=== PATIENT | female | born 2005 | race Caucasian/White ===

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

== ENCOUNTER 2024-10-15 15:08 | Emergency (ER) | payer MEDICAID, SELFPAY ==
[2024-10-15] VITALS (20 sets, daily range): BP systolic 93–107; BP diastolic 48–72; PULSE 88–119; RESP 16–18; TEMP 36.6–36.8; O2SAT 98–100
--- NOTE | ~2024-10-15 | US_ITS ---
EXAMINATION: US renal BI DATE: 10/15/2024 22:17 INDICATION: Right flank pain TECHNIQUE: Multiple ultrasound grayscale images of the kidneys were obtained. COMPARISON: None. FINDINGS: The right kidney measures 12.0 x 4.6 x 5.5 cm. The left kidney measures 11.2 x 5.6 x 5.7 cm. The kidn eys demonstrate normal echogenicity. There is no hydronephrosis in either kidney. No stones identif ied. There is mass effect upon the otherwise normal bladder resulting from the incompletely visualize d gravid uterus which is not diagnostically evaluated. IMPRESSION: 1. Normal kidneys without hydronephrosis. Reviewed, dictated and finalized at location A.
--- OUTSIDE RECORDS SUMMARY | 2024-10-15 15:10 | XMS_ITS | Data Portability ---
Author Organization [facility] [place] Address [address] [place] [address] [place] [address] Assessment No assessment recorded. Plan of Treatment Reminders Order Date Submit Date Provider Last Modified By Organization Details Last Modified Time Details Appointments OB ROUTINE 2024 10:45A Radha RAMAN MD Not available Not available Not available Lab drug screen, urine 2024 025 [email or web address] [place], [address], [place], [address], 09/30/2024 10:55:28 Referral None recorded. Procedures None recorded. Surgeries None recorded. Imaging US, obstetric , nuchal transluce ncy 2024 025 [email or web address] [place], [address], [place], [address], 09/30/2024 13:24:22 US, obstetric , 1st trimester 2024 025 [email or web address] [place], [address], [place], [address], 09/05/2024 17:05:03 Medication Orders None recorded. Patient TargetsNo targets recorded. Patient InstructionsNo instructions recorded. Reason for Referral None Reported. Results Created Date Observation Date Name Description Value Unit Range Abnormal Flag Note LastModifiedBy Organization Detail LastModifiedTime 10/07/19 25 10/06/2024 [UNIT Y] ANEUP LOIDY NIPT fraction 8.1% normal Not Available Liana wynn [address], [place], [address], 10/06/2024 23:31:19 10/07/19 25 10/06/2024 [UNIT Y] ANEUP LOIDY NIPT 22Q11.2 microdeletio n LOW RISK <1 in 10,000 normal Not Available [facility] [address] [facility], [place], [address], 10/06/2024 23:31:19 10/07/19 25 10/06/2024 [UNIT Y] ANEUP LOIDY NIPT sex chromosome aneuploidy NOT DETECT ED normal Not Available [facility] [address] [facility], [place], [address], 10/06/2024 23:31:19 10/07/19 25 10/06/2024 [UNIT Y] ANEUP LOIDY NIPT monosomy X LOW RISK <1 in 10,000 normal Not Available [facility] [address] [facility], [place], [address], 10/06/2024 23:31:19 10/07/19 25 10/06/2024 [UNIT Y] ANEUP LOIDY NIPT trisomy 13 LOW RISK <1 in 10,000 normal Not Available [facility] [address] [facility], [place], [address], 10/06/2024 23:31:19 10/07/19 25 10/06/2024 [UNIT Y] ANEUP LOIDY NIPT trisomy 18 LOW RISK <1 in 10,000 normal Not Available [facility] [address] [facility], [place], [address], 10/06/2024 23:31:19 10/07/19 25 10/06/2024 [UNIT Y] ANEUP LOIDY NIPT trisomy 21 LOW RISK <1 in 10,000 normal Not Available [facility] [address] [facility], [place], [address], 10/06/2024 23:31:19 10/07/19 25 10/06/2024 [UNIT Y] ANEUP LOIDY NIPT sex FEMALE normal Not Available [facility] [address] [place] [address], [place], [address], 10/06/2024 23:31:19 10/07/19 25 10/06/2024 [UNIT Y] ANEUP LOIDY NIPT gestation SINGLE TON normal Not Available [facility] [address] [address], [place], [address], 10/06/2024 23:31:19 10/07/19 25 10/06/2024 [UNIT Y] ANEUP LOIDY NIPT for detailed report, see pdf See PDF normal Not Available [facility] [address] [place] [address], [place], [address], 10/06/2024 23:31:19 10/13/19 25 10/12/2024 [UNIT Y] JENIFER Parra sickle cell disease/beta -thalassemia /hemoglobino pathies carrier screen NEGATI VE normal Not Available [facility] [address] [place] [address], [place], [address], 10/12/2024 10:46:31 10/13/19 25 10/12/2024 [UNIT Y] JENIFER Parra alpha-thalas semia carrier screen NEGATI VE normal Not Available [facility] [address] [place] [address], [place], [address], 10/12/2024 10:46:31 10/13/19 25 10/12/2024 [UNIT Y] JENIFER Parra cystic fibrosis carrier screen NEGATI VE normal Not Available [facility] [address] [place] [address], [place], [address], 10/12/2024 10:46:31 10/13/19 25 10/12/2024 [UNIT Y] JENIFER Parra spinal muscular atrophy carrier screen NEGATI VE 2 SMN1 copies , SNP not presen t normal Not Available [facility] [address], [place], [address], 10/12/2024 10:46:31 10/13/19 25 10/12/2024 [UNIT Y] JENIFER DIAZ Fidel for detailed report, see pdf See PDF normal Not Available [facility] [address], [place], [address], 10/12/2024 10:46:31 09/03/19 25 09/02/2024 CT/GC AND TRICH OMONA S VAGIN KYLAH (RRNA ), URINE chlamydia trachomatis, PCR Negati ve negati ve Not Available [facility] (Lab) [address], [place], [address], 09/03/2024 13:04:24 09/03/19 25 09/02/2024 CT/GC AND TRICH OMONA S VAGIN KYLAH (RRNA ), URINE neisseria gonorrhoeae, PCR Negati ve negati ve Not Available [facility] (Lab) [address], [place], [address], 09/03/2024 13:04:24 09/03/19 25 09/02/2024 CT/GC AND TRICH OMONA S VAGIN KYLAH (RRNA ), URINE trichomonas vaginalis ribosomal RNA (rrna) Negati ve negati ve Not Available [facility] (Lab) [address] [facility], [place], [address], 09/03/2024 13:04:24 10/01/19 25 09/30/2024 CBC W/DIF F WBC 5.6 10'3/ uL 3.5-10 .5 Not Available [facility] (Lab) [address], [place], [address], 10/01/2024 11:38:09 10/01/19 25 09/30/2024 CBC W/DIF F RBC 3.95 10'6/ uL (based on docume nted legal sex) 3.80-5 .20 Not Available [facility] (Lab) [address], [place], [address], 10/01/2024 11:38:09 10/01/19 25 09/30/2024 CBC W/DIF F HGB 12.5 g/dL (based on docume nted legal sex) 11.6-1 5.4 Not Available [facility] (Lab) [address], [place], [address], 10/01/2024 11:38:09 10/01/19 25 09/30/2024 CBC W/DIF F HCT 37.1 % (based on docume nted legal sex) 34.0-4 5.0 Not Available [facility] (Lab) [address], [place], [address], 10/01/2024 11:38:10/01/1909/30/2024 CBC W/DIF F MCV 93.9 fL 80.0-9 9.0 Not Available [facility] (Lab) [address], [place], [address], 10/01/2024 11:38:10/01/19 25 09/30/2024 CBC W/DIF F MCH 31.6 pg 27.0-3 4.0 Not Available [facility] (Lab) [address], [place], [address], 10/01/2024 11:38:10/01/19 25 09/30/2024 CBC W/DIF F MCHC 33.7 g/dL 32.0-3 5.5 Not Available [facility] (Lab) [address], [place], [address], 10/01/2024 11:38:10/01/1909/30/2024 CBC W/DIF F RDW 12.8 % 11.0-1 5.0 Not Available [facility] (Lab) [address], [place], [address], 10/01/2024 11:38:10/01/1909/30/2024 CBC W/DIF F plt 198 10'3/ uL 150-40 0 Not Available [facility] (Lab) [address], [place], [address], 10/01/2024 11:38:09 10/01/19 25 09/30/2024 CBC W/DIF F MPV 10.8 fL 8.8-12 .1 Not Available [facility] (Lab) [address], [place], [address], 10/01/2024 11:38:09 10/01/19 25 09/30/2024 CBC W/DIF F NRBC's 0.0 % 0.0 Not Available [facility] (Lab) [address], [place], [address], 10/01/2024 11:38:09 10/01/19 25 09/30/2024 CBC W/DIF F absolute NRBCs 0.0 10'3/ uL no refere nce range establ ished Not Available [facility] (Lab) [address], [place], [address], 10/01/2024 11:38:09 10/01/19 25 09/30/2024 CBC W/DIF F neutrophils 73.5 % 34.0-7 3.0 high Not Available [facility] (Lab) [address], [place], [address], 10/01/2024 11:38:09 10/01/19 25 09/30/2024 CBC W/DIF F lymphocytes 18.1 % 15.0-5 0.0 Not Available [facility] (Lab) [address], [place], [address], 10/01/2024 11:38:09 10/01/19 25 09/30/2024 CBC W/DIF F monocytes 6.4 % 1.0-15 .0 Not Available [facility] (Lab) [address], [place], [address], 10/01/2024 11:38:09 10/01/19 25 09/30/2024 CBC W/DIF F eosinophils 1.2 % 0.0-8. 0 Not Available [facility] (Lab) [address], [place], [address], 10/01/2024 11:38:09 10/01/19 25 09/30/2024 CBC W/DIF F basophils 0.4 % 0.0-2. 0 Not Available [facility] (Lab) [address] [facility], [place], [address], 10/01/2024 11:38:09 10/01/19 25 09/30/2024 CBC W/DIF F immature granulocytes 0.4 % no define d refere nce range Immat ure Granu locyt es (IG) repre sents autom ated enume ratio n of Metam yeloc ytes, Myelo cytes and Promy elocy bud when IG is < 5%. Blast s are not inclu ded in IG and repor manisha separ ately if prese nt. Not Available [facility] (Lab) [address] [facility], [place], [address], 10/01/2024 11:38:09 10/01/19 25 09/30/2024 CBC W/DIF F absolute neutrophils 4.1 10'3/ uL 1.5-8. 0 Not Available [facility] (Lab) [address] [facility], [place], [address], 10/01/2024 11:38:09 10/01/19 25 09/30/2024 CBC W/DIF F absolute lymphocytes 1.0 10'3/ uL 1.0-4. 0 Not Available [facility] (Lab) [address] [facility], [place], [address], 10/01/2024 11:38:09 10/01/19 25 09/30/2024 CBC W/DIF F absolute monocytes 0.4 10'3/ uL 0.2-1. 0 Not Available [facility] (Lab) [address] [facility], [place], [address], 10/01/2024 11:38:09 10/01/19 25 09/30/2024 CBC W/DIF F absolute eosinophils 0.1 10'3/ uL 0.0-0. 6 Not Available [facility] (Lab) [address] [facility], [place], [address], 10/01/2024 11:38:09 10/01/1909/30/2024 CBC W/DIF F absolute basophils 0.0 10'3/ uL 0.0-0. 3 Not Available [facility] (Lab) [address] [facility], [place], [address], 10/01/2024 11:38:09 10/01/19 25 09/30/2024 CBC W/DIF F absolute immature granulocytes 0.0 10'3/ uL 0.00-0 .10 Refer ence range s for nonbi nary/ inter sex or unspe cifie d gende r patie nts have not been estab lishe d. Pleas e [facility] for range s estab lishe d for cisge nder patie nts and evalu ate in the clini jasmeet marivel xt of the indiv idual patie nt: https ://lisa and book. nm.or g/gen derx Not Available [facility] (Lab) [address] [facility], [place], [address], 10/01/2024 11:38:09 10/01/1909/30/2024 HEPAT ITIS B SURFA CE ANTIG EN hepatitis B surface antigen Non-re active non-re active This assay was perfo rmed using [employer] ratio n reage nts and test kits. Value s obtai tacho with other assay metho ds or kits canno t be used inter cronin eably . Not Available [facility] (Lab) [address] [facility], [place], [address], 10/01/2024 11:38:10 10/01/1909/30/2024 HIV 1/2 ANTIG EN/AN TIBOD Y, REFLE X CONFI RMATI ON HIV antigen/anti body Nonrea ctive nonrea ctive HIV-1 antig en and HIV-1 /HIV- 2 antib odies were not detec manisha. No labor atory evide nce of HIV infec tion. Not Available [facility] (Lab) [address] [facility], [place], [address], 10/01/2024 11:38:10 10/01/19 25 09/30/2024 HEPAT ITIS C ANTIB ALISHA SCREE N, REFLE X TO CONFI RMATI ON hepatitis C antibody Non-re active non-re active Antib odies to HCV Not Detec manisha, does not exclu de the possi bilit y of expos ure to HCV. Not Available [facility] (Lab) [address], [place], [address], 10/01/2024 11:38:11 10/01/19 25 09/30/2024 RUBEL LA IGG ANTIB ALISHA, QUANT rubella antibodies, IgG Reacti ve reacti ve Not Available [facility] (Lab) [address] [facility], [place], [address], 10/01/2024 11:38:11 10/01/19 25 09/30/2024 RUBEL LA IGG ANTIB ALISHA, QUANT rubella antibodies, IgG quant 12.5 IU/mL >=10 Non-r eacti ve (Non- Immun e) <10 IU/mL React adina (Immu ne) > or = 10 IU/mL Not Available [facility] (Lab) [address], [place], [address], 10/01/2024 11:38:11 10/01/19 25 09/30/2024 TYPE/ RH/SC REEN ABO/Rh type A POS Not Available [facility] (Lab) [address], [place], [address], 10/01/2024 11:38:12 10/01/19 25 09/30/2024 TYPE/ RH/SC REEN antibody screen NEG Not Available [facility] (Lab) [address], [place], [address], 10/01/2024 11:38:12 07/11/12 2409/30/2024 TYPE/ RH/SC REEN exp date 2024 23:59 Not Available [facility] (Lab) [address] [facility], [place], [address], 10/01/2024 11:38:12 10/01/19 25 09/30/2024 HEMOG LOBIN A1C hemoglobin A1C 4.9 % 4.0-5. 6 The Ameri can Diabe bud Assoc iatio n recom mends that a prima ry goal of thera py shoul d be a HBA1C of < 7% and that physi cians shoul d reeva luate the treat ment regim en in patie nts with HBA1C value s consi stent ly > 8%. <5.7% Swati l 5.7 - 6.4% Incre ased risk for diabe bud >=6.5 % Diagn ostic of diabe bud <7.0% Goal of thera py >8.0% Actio n sugge sted Not Available [facility] (Lab) [address] [place], [address], 10/01/2024 11:38:13 10/01/19 25 09/30/2024 RPR SCREE N, REFLE X TITER /CONF IRMAT ION RPR qualitative Nonrea ctive nonrea ctive Not Available [facility] (Lab) [address], [place], [address], 10/01/2024 11:38:13 10/01/1909/30/2024 CULTU RE: URINE result report SEE RESULT S BELOW Test: Cultu re: Urine Speci men Sourc e: Urine Voide d Speci men Type: Urine Speci men Date: 025 1011 Resul t Date: 2024 0559 Resul t Statu s: Final resul t Abnor mal: No Resul ting Lab: [facility] [address] [facility] [address] Tel: CULTU RE ----- ----- ----- --- No growt h in 1 day (dete ction level of 10,00 0 colon ies / ml.) Not Available [facility] (Lab) [address], [place], [address], 10/02/2024 07:03:32 10/01/19 25 09/30/2024 drug scree n, urine Amphetamines : negati ve Not Available [place] [address], [place], [address], 09/30/2024 10:52:38 10/01/19 25 09/30/2024 drug scree n, urine Cannabinoids : positi ve Not Available [place] [address], [place], [address], 09/30/2024 10:52:38 10/01/19 25 09/30/2024 drug scree n, urine Cocaine: negati ve Not Available [place] [address], [place], [address], 09/30/2024 10:52:38 10/01/19 25 09/30/2024 drug scree n, urine Opiates: negati ve Not Available [place] [address], [place], [address], 09/30/2024 10:52:38 10/01/19 25 09/30/2024 drug scree n, urine Phenocyclidi ne: negati ve Not Available [place] [address], [place], [address], 09/30/2024 10:52:38 10/01/19 25 09/30/2024 drug scree n, urine Barbiturates : negati ve Not Available [place] [address], [place], [address], 09/30/2024 10:52:38 10/01/19 25 09/30/2024 drug scree n, urine Benzodiazepi carla: negati ve Not Available [place] [address], [place], [address], 09/30/2024 10:52:38 10/01/19 25 09/30/2024 drug scree n, urine Ethanol: negati ve Not Available [place] [address], [place], [address], 09/30/2024 10:52:38 10/01/19 25 09/30/2024 drug scree n, urine Hallucinogen s: negati ve Not Available [place] [address], [place], [address], 09/30/2024 10:52:38 10/01/19 25 09/30/2024 drug scree n, urine Inhalants: negati ve Not Available [place] [address], [place], [address], 09/30/2024 10:52:38 10/01/19 25 09/30/2024 drug scree n, urine Anabolic Steroids: negati ve Not Available [place] [address], [place], [address], 09/30/2024 10:52:38 09/03/19 25 09/02/2024 US, obste tric, 1st trime ster No observ ation record ed. [facility] [address], [place], [address], 09/02/2024 17:09:17 09/04/19 25 09/02/2024 US, obste tric, 1st trime ster No observ ation record ed. [email or web address] [address] [facility], [place], [address], 09/03/2024 14:01:43 10/01/19 25 09/30/2024 US, obste tric, nucha l trans lucen cy No observ ation record ed. [email or web address] [place] [address], [place], [address], 09/30/2024 13:22:32 10/01/19 25 09/30/2024 US, obste tric, nucha l trans lucen cy No observ ation record ed. [email or web address] [address], [place], [address], 10/03/2024 17:35:49 Result Notes None recorded. Problems Name Problem SNOMED Code Status Onset Date Resolution Date Notes Provider Name and Address Organization Details Recorded Time [id number] Active 025 Nataliaamandeep Villanueva [facility] 10:12:39 Problem Notes None recorded. Medical Equipment None Reported. Allergies No known drug allergies Medications Name Sig Start Date Stop Date Status Note LastModified by Organization Details LastModified Time Vitamin active Not Available Not Available Not Available Vitals Date Recorded Body weight Body mass index (BMI) Body mass index (BMI) [Percentile] Per age and sex Body height Systolic And Diastolic Provider Name and Address Organization Details Last Updated DateTime 09/02/2024 78609.15 g 22.1 kg/m2 53 % 167.64 cm 119/78 mm[Hg] MANINDER Rogel [facility] 17:27:00 Date Recorded Body height Body mass index (BMI) [Percentile] Per age and sex Body mass index (BMI) Body weight Systolic And Diastolic Provider Name and Address Organization Details Last Updated DateTime 09/30/2024 167.64 cm 55 % 22.3 kg/m2 16618.7 5 g 127/80 mm[Hg] Natalia Villanueva [facility] 10:12:08 Social History Question Answer Notes LastModified by Organizat ion Details LastModified Time Tobacco Smoking Status Never Smoker MANINDER Rogel [facility] 09/02/2024 17:29:38 Do You Have An Advance Directive? No [email or web address] Information n ot available 09/02/2024 If You Are , What Was Your Level Of Alcohol Consumption Prior To ? None [email or web address] Information not available 09/02/2024 Are You Blind Or Do You Have Difficulty Seeing? No [email or web address] Information n ot available 09/02/2024 What Is Your Level Of Caffeine Consumption? None [email or web address] Information not available 09/02/2024 In The 14 Days Before Symptom Onset, Have You Had Close Contact With A Laboratory-confirm ed COVID-19 While That Case Was Ill? No [email or web address] Information n ot available 09/02/2024 In The 14 Days Before Symptom Onset, Have You Had Close Contact With A Person Who Is Under Investigation For COVID-19 While That Person Was Ill? No [email or web address] Information not available 09/02/2024 Have You Been To An Area Known To Be High Risk For COVID-19? No [email or web address] Information not available 09/02/2024 Are You Deaf Or Do You Have Serious Difficulty Hearing? No [email or web address] Information not available 09/02/2024 What Type Of Diet Are You Following? REGULAR [email or web address] Information n ot available 09/02/2024 What Is The Highest Grade Or Level Of School You Have Completed Or The Highest Degree You Have Received? [id number] [email or web address] Information not available 09/02/2024 Are There Any Guns Present In Your Home? No [email or web address] Information not available 09/02/2024 Do You Use Your Seat Belt Or Car Seat Routinely? Yes Information not available 09/02/2024 Are You Sexually Active? Yes [email or web address] Information not available 09/02/2024 Do You Have Smoke And Carbon Monoxide Detectors In Your Home? Yes [email or web address] Information not available 09/02/2024 Do You Use Sunscreen Routinely? Yes [email or web address] Information not available 09/02/2024 Has Tobacco Cessation Counseling Been Provided? No Information not available 09/02/2024 Do You Have Difficulty Walking Or Climbing Stairs? No [email or web address] Information not available 09/02/2024 How Many Years Have You Used E-cigarettes Or Vape? 3 [email or web address] Information not available 09/02/2024 Sex: Unknown Functional Status Question Answer Note LastModified by Organizat ion Details LastModified Time Do you use any illicit or recreational drugs? No [email or web address] Information not available 09/02/2024 Do you or have you ever used any other forms of tobacco or nicotine? Yes [email or web address] Information not available 09/02/2024 What is your level of alcohol consumption? None [email or web address] Information not available 09/02/2024 Do you or have you ever used smokeless tobacco? Never used [email or web address] tobacco Information not available 09/02/2024 Are you currently employed? No [email or web address] Information not available 09/02/2024 Are you able to walk? YESWOREST [email or web address] Information not available 09/02/2024 Are you able to care for yourself? Yes [email or web address] Information not available 09/02/2024 Do you have difficulty dressing or bathing? Yes [email or web address] Information not available 09/02/2024 Do you or have you ever used e-cigarettes or vape? Current user of electronic cigarettes [email or web address] Information not available 09/02/2024 What is your exercise level? None [email or web address] Information not available 09/02/2024 Mental Status Question Answer Note LastModified by Organization D etails LastModified Time Do you feel stressed (tense, restless, nervous, or anxious, or unable to sleep at night)? [id number] Information not available 09/02/2024 Family History Relationship Description Onset Age of this Age Resolved Age Notes LastModified by Organization Details LastModified Time Mother Malignant tumor of breast [email or web address] Not available 2024 17:29:18 Maternal Grandmother Malignant neoplasm of lung [email or web address] Not available 2024 17:29:27 Medical History Condition Response Allergies (Food, seasonal, environmental ) N Other N Drug/Latex Allergies/Reactions N Breast Cancer N Blood Transfusion N Lung Disease N Dermatologic Disorders N Defects or Inherited Disease N Breast Problem N Gestational Diabetes N Hematologic disorders N Anesthesia Complications N History of STI N Deep Vein Thrombosis N Polycystic ovary syndrome N Anxiety Disorder N Autoimmune disease N Arthritis N Polyps N Infertility N History of abnormal pap N Acid Reflux (GERD) N Cancer N Varicosities N Stroke N Neurologic/Epilepsy N Endometriosis N High Cholesterol N Headaches N Fibromyalgia N Kidney Disease N Heart Problems N Thyroid Problems N Kidney or Bladder Problems N GI Problems N Eating Disorder N Anemia N Art (IVF or FET) N Psychiatric Illness N Ovarian Cancer N Diabetes N Pulmonary (TB, Asthma) N Hepatitis/Liver Disease N No Past Medical History N Eczema N Urinary Tract Infection N Abuse/Domestic Violence N Asthma N Trauma/Violence N Depression/ depression N Heart Disease N Pre-Eclampsia N Hypertension N Osteoporosis N Thrombophilias N Gynecological History Statement/Question Response Date of Last Mammogram Flow Moderate Date of LMP 07/01/2024 On BCP's at Conception? N STIs/STDs Y HPV Vaccine N Colposcopy Duration of Flow (days) 5 Current Control Method Date of Last Colonoscopy Frequency of Cycle (Q days) 28 Sexually Active? Y Menses Monthly N Date of DEXA bone scan Age of first menstrual cycle 12 Date of Last Pap Smear Sexual Problems? N Desired Control Method None LMP Definite Obstetrics History GPAL:G 2 P 0 0 1 0 Type Value Induced 1 Living 0 Total 2 Past Encounters Encounter ID Performer Location Encounter Start Date Encounter Closed Date Diagnosis/Indication Diagnosis SNOMED-CT Code Diagnosis ICD10 Code Diagnosis Note [id number] BONITA RAMAN MD [place] [address],[place] [address] 09/02/2024 16:43:56 09/02/2024 17:07:32 Uterine size for dates discrepancy 768643992 O26.841 Z3A.01 [id number] BONITA RAMAN MD [place] [address],[place] [address] 09/02/2024 16:45:49 09/03/2024 09:16:33 test positive 361640022 Z32.01 1. Exam today within normal limits.2. Ultrasound today confirms GA and viability. EDC . GC/Clamydi a testing done: will f/u as indicated. 4. ACOG guidelines and plan of care for reviewed with patient. All questions answered.5 . Return to office at 12 weeks for new OB visit6. Will need new OB labs at next visit.7. Genetic screening: desires. [id number] BONITA RAMAN MD [place] [address],[place] [address] 09/30/2024 09:31:36 09/30/2024 10:11:54 screening 830672122 Z36.82 Z3A.11 [id number] BONITA RAMAN MD [place] [address],[facility] [place] [address] 09/30/2024 09:31:48 09/30/2024 10:43:45 care status [id number] Z34.81 Health Concerns Section Related Observation LastModified by Organization Detai ls LastModified Time None Recorded Concern Status LastModified by Organization Details LastModified Time None Recorded Advance Directives Directive N: Payers Insurance Date Sequence Insurance Name Policy Number Policy Snowden Covered Member ID Snowden Member ID Guarantor Name 09/29/2024 2 MEDICAID-[place]: [facility] Opal Spear [id number] Opal Spear 10/06/2024 1 BS-[place] [id number] Opal Spear [id number] Opal Spear Notes Date Note Type Note Provider Name and Address Organization Details Recorded Time 09/02/2024 text/html Presents to the office today to confirm . Patient denies any problems up to this point with her . Patient denies cramping or vaginal bleeding. Rare nausea. G1: eAB, D&C, no complicationsG2: current Patient is not in a relationship. Lives by herself. Patient works at [employer]. Denies EtOH/illicits. Vaping, decreasing usage. BONITA RAMAN MD [address], [place], [address], [facility] 09/02/2024 18:09:21 OBGyn Episode Ob Episode Information Episode Created Date Number of Fetuses Patient Bloodtype Patient rh Status Prepregnancy Weight lbs Domestic Partner Domestic Partner Phone Father Name Press Breaker Status 10/01/19 25 1 137 Akash vann OPEN Fetus Data First Name Last Name Admitted to NICU Weight (g) Sex Living Outcome Pediatric Complications Fetus ID Race Codes Race Delivery Type [id number] Wale Calculation Initial Wale Date Initial Exam Date Initial Exam Provider Initial Ultrasound Date Last Menstrual Period Date Ultra Sound Weeks Gestation 04/15/2025 09/30/2024 09/02/2024 07/01/2024 7 Eighteen To Twenty Week Wale Update Ultra Sound Date Fundal Height At Umbil Quickening Date Ultra Sound Latest Weeks Gestation Final Wale Confirmed By Final Wale Confirmed Date Final Wale Date Ultra Sound Latest Days Gestation 0 [id number] 09/30/2024 04/15/19 26 0 Pre-iveth Flowsheet Flowsheet Date 09/30/2024 Demarco Score Blood Edema Fundus Height Fundus Units Glucose Ketones Leukocytes Nitrite Labor Signs Protein Cervic Dilation Cervic Effacement Cervic Station Type Weight in lbs Pre/Post Dialysis Refused Weight 138.272943976690 BP Diastolic BP Location Tested BP Systolic BP Type 80 L arm 127 sitting Fetus Heart Rate Present A 164 Fetus Movement Comments Patient presents to [facility] care. otherwise uncomplicated. No nausea or cramping. NT/NB wnl today, desires NIPT. Will draw today with new OB labs. RTC 4 weeks for routine care. Menstrual History Last Menstrual Date Menses Monthly On Bcp Conception Prior Menses Frequency Hcg Plus Date Menarche Onset Age 0407/01/2024 Delivery Information Delivery Date Delivery Type Labor Anesthesia Weeks Gestation Incision Type Labor Labor Length Hrs Delivered By Post Complications Tubal Sterilization Discharge Date Comments Discharge Information Feeding Method Contraceptive Method Maternal HG B and HCT Levels Ob Episode Information Episode Created Date Number of Fetuses Patient Bloodtype Patient rh Status Prepregnancy Weight lbs Domestic Partner Domestic Partner Phone Father Name Press Breaker Status 09/03/19 25 1 CLOSED Fetus Data First Name Last Name Admitted to NICU Weight (g) Sex Living Outcome Pediatric Complications Fetus ID Race Codes Race Delivery Type , Induced [id number] Wale Calculation Initial Wale Date Initial Exam Date Initial Exam Provider Initial Ultrasound Date Last Menstrual Period Date Ultra Sound Weeks Gestation 0 Eighteen To Twenty Week Wale Update Ultra Sound Date Fundal Height At Umbil Quickening Date Ultra Sound Latest Weeks Gestation Final Wale Confirmed By Final Wale Confirmed Date Final Wale Date Ultra Sound Latest Days Gestation 0 0 Menstrual History Last Menstrual Date Menses Monthly On Bcp Conception Prior Menses Frequency Hcg Plus Date Menarche Onset Age Delivery Information Delivery Date Delivery Type Labor Anesthesia Weeks Gestation Incision Type Labor Labor Length Hrs Delivered By Post Complications Tubal Sterilization Discharge Date Comments 3 Discharge Information Feeding Method Contraceptive Method Maternal HG B and HCT Levels
--- OUTSIDE RECORDS SUMMARY | 2024-10-15 15:10 | XMS_ITS | Clinical Summary ---
Author Organization [facility] Address [address] [place] [address] Care Team Providers Care Director Airport Operations Name Role Phone Unavailable Primary Care Provider Unavailabl e Source Comments [facility] [employer] [facility],non-owned Affiliates and Associated Physician Practices is amultiple site organization consisting of ambulatory clinics and hospital sitesin [place], [place], [place] and [place]. This disclosure is being madepursuant to the Care Everywhere program and may not contain all information available regarding this patient. Last updated 17.[facility] Allergies No known active allergies Medications * Be aware that medications may not be up to date on this document. Alwaysverify current medications with the patient. 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 Gender Identity Not on file Sexual Orientation Not on file Last Filed Vital Signs Vital Sign Reading Time Taken Comments Blood Pressure 124/70 04/12/2021 4:47 PM ROUND CUTTER OPERATOR Pulse 96 04/12/2021 4:47 PM ROUND CUTTER OPERATOR Temperature 36.7 C (98.1 F) 04/12/2021 4:47 PM ROUND CUTTER OPERATOR Respiratory Rate 20 04/12/2021 4:47 PM ROUND CUTTER OPERATOR Oxygen Saturation - - Inhaled Oxygen Concentration - - Weight 58 kg (127 lb 13.9 oz) 04/12/2021 4:47 PM ROUND CUTTER OPERATOR Height - - Body Mass Index - - Plan of Treatment Health Maintenance Due Date Last Done Comments HIV SCREENING 01/28/2019 HPV VACCINE (1 - 3-dose series) 01/28/2019 CHLAMYDIA/GONORRHEA SCREENING 2020 MENINGOCOCCAL (Group B) VACC INE SHARED DECISION-MAKING (1 of 2 - Standard) 2020 HEPATITIS C SCREENING 01/24/2022 DTAP/TDAP/TD VACCINES (1 - Tdap) 01/28/2023 HEPATITIS B VACCINE (1 of 3 - 19+ 3-dose series) 01/28/2023 COVID-19 VACCINE (1 - 2023-2 5 season) 2023 DEPRESSION SCREENING 03/26/2024 INFLUENZA VACCINE (#1) 2024 ZOSTER VACCINE (1 of 2) 01/28/2054 HIB VACCINE Aged Out No longer eligi ble based on patient's age to complete this topic MENINGOCOCCAL GROUPS A/C/Y/W VACCINE Aged Out No longer eligible b ased on patient's age to complete this topic PNEUMOCOCCAL VACCINE Aged Out No long er eligible based on patient's age to complete this topic Insurance [employer]
--- OUTSIDE RECORDS SUMMARY | 2024-10-15 15:11 | XMS_ITS | Data Portability ---
Author Organization [facility] , [facility] Address [address] [place] [address] Assessment No assessment recorded. Plan of Treatment Reminders Order Date Submit Date Provider Last Modified By Organization Details Last Modified Time Details Appointments None recorded. Lab unlisted lab - STD screening ([facility]) 2024 025 [facility], [address] [place] [address], [address], 5 14:38:46 hsv (1+2) igg, serum 2024 025 [facility], [address], [place], [address], 5 17:50:20 STI panel 2024 025 [facility], [address] [place], [address], 5 09:40:42 Referral None recorded. Procedures None recorded. Surgeries None recorded. Imaging None recorded. Medication Orders None recorded. Patient TargetsNo targets recorded. Patient Instructions Encounter Date Encounter Id Patient Instructions Last Modified By Organization Details Last Modified Time 04/03/2024 [id number] exposure to sexually transmitted infections: care instructions [email or web address] Not available 04/03/2024 15:46:25 Reason for Referral None Reported. Results Created Date Observation Date Name Description Value Unit Range Abnormal Flag Note LastModifiedBy Organization Detail LastModifiedTime 04/04/19 25 04/04/2024 HSV 1/2 IGG,T YPE SPECI FIC AB hsv 1 IgG, type specific Ab 23.80 index high Not Available [facility]ina [facility] [address] [place], [address], 04/04/2024 17:50:20 04/04/19 25 04/04/2024 HSV 1/2 IGG,T YPE SPECI FIC AB hsv 2 IgG, type specific Ab <0.90 index normal Index Inter preta tion ----- ----- ----- ---- <0.90 Negat adina 0.90- 1.09 Equiv ocal >1.09 Posit adina This assay utili zes recom binan t type- speci fic antig ens to diffe renti ate HSV-1 from HSV-2 infec tions . A posit adina resul t canno t disti nguis h betwe en recen t and past infec tion. If recen t HSV infec tion is suspe cted but the resul ts are negat adina or equiv ocal, the assay shoul d be repea manisha in 4-6 weeks . The perfo rmanc e shavon cteri stics of the assay have not been estab lishe d for pedia tric popul ation s, immun ocomp romis ed patie nts, or neona tiffany scree john. For addit ional infor elsie mcucllough refer to http: //[facility] esp[facility]za neumann.Que stDia gnost ics.c om/fa q/FAQ 118 (This link is being provi ded for infor piotr medina/ educa colin l purpo ses only. ) NO COLLE CTION DATE RECEI JESENIA. WE HAVE USED THE DATE THE SPECI MEN WAS RECEI JESENIA BY THIS LABOR ATORY THE COLLE CTION DATE. IF THIS IS INCOR RECT, ELSIE E CONTA CT CLIEN T SERVI MARILOU. PHONE NUMBE R: [phone] Not Available [employer] [facility] [address] [place], [address], 04/04/2024 17:50:20 04/03/19 25 04/04/2024 STD SCREE JOHN ([facility] ) hep BS Ag Non-Re active non-re active normal Not Available [address], [place], [address], 04/04/2024 14:38:46 04/03/19 25 04/04/2024 STD SCREE JOHN ([facility] ) hep C Ab Non-Re active non-re active normal Not Available [address], [address], 04/04/2024 14:38:46 04/03/19 25 04/04/2024 STD SCREE JOHN ([facility] ) HIV 1/2 Ag/Ab Non-Re active non-re active normal Not Available [address], [address], 04/04/2024 14:38:46 04/03/19 25 04/04/2024 STD SCREE JOHN ([facility] ) syphilis Ab Non-Re active non-re active normal Not Available [address], [address], 04/04/2024 14:38:46 04/03/19 25 04/09/2024 STI PANEL trichomonas vaginalis TRICH neg negati ve normal Not Available [address], [address], 04/10/2024 09:40:42 04/03/19 25 04/09/2024 STI PANEL chlamydia trachomatis CT neg negati ve normal This repor t is inten ded for us in clini jasmeet monit oring and manag ement of patie nts. It is not inten ded for use in medic al-le gal appli catio n. Not Available [address], [address], 04/10/2024 09:40:42 04/03/19 25 04/09/2024 STI PANEL neisseria gonorrhoeae GC neg negati ve normal This repor t is inten ded for us in clini jasmeet monit oring and manag ement of patie nts. It is not inten ded for use in medic al-le gal appli catio n. Not Available [employer] [place] [address] [facility], [place], [address], 04/10/2024 09:40:42 Result Notes None recorded. Medical Equipment None Reported. Allergies No known drug allergies Medications Name Sig Start Date Stop Date Status Note LastModified by Organization Details LastModified Time metronidazol e 500 mg tablet TAKE 1 TABLET BY MOUTH TWICE DAILY. NO ALCOHOL UNTIL 24 HOURS AFTER LAST TABLET 04/02 completed Not Available Not Available Not Available ibuprofen 600 mg tablet TAKE 1 TABLET BY MOUTH EVERY 6 HOURS NEEDED FOR PAIN 04/02 completed Not Available Not Available Not Available azithromycin 500 mg tablet TAKE 2 TABLETS BY MOUTH DAILY 04/02 completed Not Available Not Available Not Available nitrofuranto in monohydrate/ macrocrystal s 100 mg capsule TAKE 1 CAPSULE BY MOUTH TWICE DAILY 04/02 completed Not Available Not Available Not Available Vitals Date Recorded Body height Body mass index (BMI) [Percentile] Per age and sex Body mass index (BMI) Body weight Body temperature Systolic And Diastolic Provider Name and Address Organization Details Last Updated DateTime 167.64 cm 68 % 23.5 kg/m2 61565.0 5 g 97.6 [degF] 122/64 mm[Hg] Thais Cavanaugh [employer] 15:33:31 Social History Question Answer Notes LastModified by Organizat ion Details LastModified Time Tobacco Smoking Status Never Smoker Thais john, [employer] 04/03/2024 15:24:52 If You Are , What Was Your Level Of Alcohol Consumption Prior To ? None Information not available 04/03/2024 Are You Blind Or Do You Have Difficulty Seeing? No Information not available 04/02/2024 Are You Deaf Or Do You Have Serious Difficulty Hearing? No Information not available 04/02/2024 What Type Of Diet Are You Following? REGULAR Information not available 04/03/2024 How Many Children Do You Have? 0 Information not available 04/03/2024 Are There Any Occupational Health Risks Where You Work? No Information not available 04/03/2024 What Is Your Relationship Status? Single Information not available 04/03/2024 Are You Sexually Active? Yes Information not available 04/02/2024 Sex: Unknown Functional Status Question Answer Note LastModified by Organizat ion Details LastModified Time Do you use any illicit or recreational drugs? No Information not available 04/03/2024 Do you or have you ever used any other forms of tobacco or nicotine? No Information not available 04/03/2024 What is your level of alcohol consumption? None Information not available 04/03/2024 Are you currently employed? Yes Information not available 04/03/2024 What is your exercise level? None Information not available 04/03/2024 Mental Status None recorded. Family History Relationship Description Onset Age of this Age Resolved Age Notes LastModified by Organization Details LastModified Time Father No current problems or disability Not available 11/2024 15:24:37 Mother No current problems or disability Not available 11/2024 15:24:37 Mother Malignant neoplastic disease Not available 04/03 15:24:37 Paternal Grandmother Malignant neoplastic disease Not available 04/03 15:24:37 Maternal Grandmother Malignant neoplastic disease Not available 04/03 15:24:38 Medical History No medical history recorded. Gynecological History Statement/Question Response Flow Light Date of last HPV Date of LMP 03/19/2024 Duration of Flow (days) Usually 7 but th is period I've been spotting still Most Recent Mammogram Current Control Method None Age at Menarche 13 If Post Menopausal, Age at Menopause Date of Last Colonoscopy Most Recent Bone Density Frequency of Cycle (Q days) About 26-28 Date of Last Pap Smear Obstetrics History GPAL:G 1 P 0 0 1 0 Type Value Induced 1 Living 0 Total 1 Past Encounters Encounter ID Performer Location Encounter Start Date Encounter Closed Date Diagnosis/Indication Diagnosis SNOMED-CT Code Diagnosis ICD10 Code Diagnosis Note [id number] THAIS PATEL NP [facility] [address] [place] [address] 04/03/2024 14:56:59 04/03/2024 16:39:48 Venereal disease screening 790125583 Z11.3 Ms. Spear, a 19 yo presents to the office for c/o vaginal discharge. She describes the discharge as white & says that it has been going on for over 2wks. Denies any irritation or itching. She also asked to have STI bloodwork performed. POCvaginal swabSTI bloodworkw ill treat as needed Depression screening 171 [id number] Z13.31 Health Concerns Section Related Observation LastModified by Organization Detai ls LastModified Time None Recorded Concern Status LastModified by Organization Details LastModified Time None Recorded Advance Directives Directive None Recorded Payers Insurance Date Sequence Insurance Name Policy Number Policy Snowden Covered Member ID Snowden Member ID Guarantor Name 04/10/2024 1 [facility] [id number] Opal Spear [id number] Opal Spear Notes Date Note Type Note Provider Name and Address Organization Details Recorded Time 04/03/2024 text/html STD screeningRep orted bypatient.Location:vag james Quality:white Severity:improving Duration:symptoms lasting over 2 weeks Onset/Timing:daily Context:current contraception: Associated Symptoms:no vaginal itching; no vaginal burning; no swelling/redness; no fever/chills; no diarrhea; no abdominal pain; no pelvic pain; no vaginal pain; no pain during urination; no pain during intercourse; no vaginal lump; no genital lesion; no sexually transmitted disease; no fever THAIS PATEL NP [address] [facility], [place], [address], [facility] 04/05/2024 15:49:52 OBGyn Episode No OBEpisode recorded.
--- NOTE | 2024-10-15 15:48 | ED_ITS ---
HPI - Nausea/Vomiting/Diarrhea General Chief complaint: Nausea/Vomiting/Diarrhea <Dianna Edwards APRN - Last Filed: 10/15/24 18:20> Stated complaint: 14 weeks n/v R sided lower back pain <Dianna Edwards APRN - Last Filed: 10/15/24 18:20> Time Seen by Provider: 10/15/24 15:40 <Dianna Edwards APRN - Last Filed: 10/15/24 18:20> Focused HPI: Patient is a 19-year-old female who presents to the ER with concerns for dehydration while . She reports she is approximately 14 weeks . Patient reports her OB advised her to come into the ER for evaluation and fluids. She denies any urinary frequency. Pt endorses R flank pain that radiates up my back. Patient denies any abdominal pain, back pain, or abnormal vaginal discharge. GENERAL: Ill-appearing, well-nourished, and in no acute distress. HEAD: Normocephalic, atraumatic. CHEST: Clear to auscultation. ?No respiratory distress. HEART: Tachycardia.? NEURO: ?Alert and oriented x3. Patient screened in triage and initial orders placed.? ?Additional care and disposition to be based upon?diagnostic testing and treatment. <Dianna Edwards APRN - Last Filed: 10/15/24 18:20> History of Present Illness HPI Narrative: Agree with the above triage note. The patient is , currently approximately 14 weeks . Her OBGYN is Dr. Toth. States today she developed right flank pain and nausea and vomiting. Reports difficulty tolerating p.o. intake. She states the pain is in her right flank and believes it is worse with any movement and has worsened since she has been sitting out in the waiting room. She denies any abdominal pain, vaginal discharge or leakage of fluids, dysuria or hematuria, urinary frequency urgency, cough or congestion, fever, history of kidney stones. She is not taking anything for her symptoms. She states she has had 2 ultrasounds to confirm IUP, the last was at the beginning of September. <Henrietta Espana PA-C - Last Filed: 10/15/24 23:42> Related Data Allergies/Adverse reactions: Allergies Allergy/AdvReac Type Severity Reaction Status Date / Time No Known Allergies Allergy Mild Verified 05/19/20 16:43 <Dianna Edwards APRN - Last Filed: 10/15/24 18:20> Review of Systems 2 Review of Systems: All systems reviewed & are unremarkable except as noted in HPI and below <Henrietta Espana PA-C - Last Filed: 10/15/24 23:42> [facility] Family History Family History: Family History Mother Breast cancer Grandparent Lung cancer Brain cancer <Dianna Edwards APRN - Last Filed: 10/15/24 18:20> Social History Social History: Social History Smoking status: Never smoker Alcohol intake: never Substance use: never Substance use type: does not use Living arrangements: with family Occupation/Education: student Gender identity (if verbalized by the patient): Female <Dianna Edwards APRN - Last Filed: 10/15/24 18:20> Exam 2 Narrative: GENERAL: Well-appearing, well-nourished, and in no acute distress. HEAD: Normocephalic, atraumatic. EYES: EOMI. ENT: Nares clear, no rhinorrhea or epistaxis. Mucous membranes moist. NECK: Supple. CHEST: Clear to auscultation. No respiratory distress. HEART: Regular rate and rhythm. No murmur heard. Normal peripheral pulses. ABDOMEN: Soft, nontender, nondistended, normal active bowel sounds. No rebound, guarding or rigidity. No CVA tenderness EXTREMITIES: Normal range of motion. No edema. SKIN: Warm, dry, no rash. NEURO: No focal deficits. Alert and oriented x3 <Henrietta sEpana PA-C - Last Filed: 10/15/24 23:42> Course Vital Signs Vital signs: Vital Signs Temperature 98.3 F 10/15/24 15:09 Pulse Rate 119 H 10/15/24 15:09 Respiratory Rate 16 10/15/24 15:09 Blood Pressure 103/63 10/15/24 15:09 Pulse Oximetry 100 10/15/24 15:09 Temperature 97.8 F 10/15/24 19:48 Pulse Rate 88 10/15/24 19:48 Respiratory Rate 18 10/15/24 19:48 Blood Pressure 106/53 L 10/15/24 19:48 Pulse Oximetry 100 10/15/24 19:48 <Dianna Edwards APRN - Last Filed: 10/15/24 18:20> Vital Signs Temperature 98.3 F 10/15/24 15:09 Pulse Rate 119 H 10/15/24 15:09 Respiratory Rate 16 10/15/24 15:09 Blood Pressure 103/63 10/15/24 15:09 Pulse Oximetry 100 10/15/24 15:09 Temperature 97.8 F 10/15/24 19:48 Pulse Rate 88 10/15/24 19:48 Respiratory Rate 18 10/15/24 19:48 Blood Pressure 106/53 L 10/15/24 19:48 Pulse Oximetry 100 10/15/24 19:48 <Henrietta Espana PA-C - Last Filed: 10/15/24 23:42> MDM - Nausea/Vomiting/Diarrhea MDM Narrative Medical decision making narrative: 19-year-old female who is , currently 14 weeks , with reported confirmed IUP presents to the emergency department for nausea, vomiting and right flank pain that started today. See HPI for further history. Triage vitals with tachycardia 119 which has since improved. Patient is afebrile and nontoxic appearing. Abdomen is soft and nontender. Lab work with leukocytosis of 10.9. Chemistries with sodium of 130 a bicarb of 21 consistent dehydration. Fluids provided. UA with 3+ ketonuria, trace leuk esterase, 6-10 white blood cells 1+ bacteria. Urine culture pending. Again fluids are provided. Beta hCG is 45,102. heart tones normal at 156. Renal ultrasound shows normal kidneys without hydronephrosis and no identifiable stones. Patient updated on results. Suspect right flank pain is due to MSK etiology verses referred pain from developing UTI or possibly early developing pyelonephritis. Patient is resting comfortably in exam bed on re-evaluation and reports significant improvement after fluids, Reglan and Tylenol. She is requesting to be discharged. She is tolerating p.o. intake. Feel she is safe to be discharged home with prescriptions for cefdinir, tylenol and Reglan. Advised close follow-up with her OBGYN and discussed strict ED return precautions. She is agreeable with the plan verbalized understanding. Discharged in stable condition. <Henrietta Espana PA-C - Last Filed: 10/15/24 23:42> Lab Data Result diagrams: 10/15/24 18:09 10/15/24 18:09 <Dianna Edwards APRN - Last Filed: 10/15/24 18:20> Labs: Lab Results 10/15/24 10/15/24 10/15/24 Range/Units 18:09 21:07 21:14 WBC 10.9 H (4.5-10.0) K/mm3 RBC 3.79 L (4.2-5.4) M/mm3 Hgb 12.0 (12.0-15.0) g/dL Hct 35.7 L (37.0-47.0) % MCV 94.2 (80-100) fl MCH 31.7 (26-34) pg MCHC 33.6 (32-36) g/dl RDW 12.8 (11.5-14.5) % Plt Count 160 (150-375) k/mm3 MPV 10.1 (7.4-10.4) fl Immature Gran % (Auto) Not Reportable Neut % (Auto) Not Reportable Lymph % (Auto) Not Reportable [place] % (Auto) Not Reportable Eos % (Auto) Not Reportable Baso % (Auto) Not Reportable Lymph # (Auto) Not Reportable [place] # (Auto) Not Reportable Eos # (Auto) Not Reportable Baso # (Auto) Not Reportable Abs Immat Gran (auto) Not Reportable Absolute Neuts (auto) Not Reportable Absolute Nucleated RBC Not Reportable Total Counted 100 Neutrophils % (Manual) 91 H (46-73) % Band Neutrophils % 4 (0-6) % Lymphocytes % (Manual) 4.0 L (18-44) % Monocytes % (Manual) 1 L (3-9) % Nucleated RBC % Not Reportable Abs Neuts (Manual) 10.35 H (1.3-6.7) K/mm3 Abs Lymphs (Manual) 0.43 L (1.1-4.5) K/mm3 Abs Monocytes (Manual) 0.10 (0.1-0.90) K/mm3 Platelet Estimate Adequate (Adequate) Schistocytes None seen Sodium 130 L (137-145) mmol/L Potassium 3.9 (3.4-5.0) mmol/L Chloride 100 (98-107) mmol/L Carbon Dioxide 21 L (22-30) mmol/L Anion Gap 9 (4-12) mmol/L BUN 9 (7-17) mg/dL Creatinine 0.52 L (0.7-1.0) mg/dL Estim Creat Clear Calc 135 ml/min Estimated GFR > 60 (59 - ) Glucose 91 (65-110) mg/dL Calcium 9.1 (8.4-10.2) mg/dL Total Bilirubin 0.5 (0.2-1.3) mg/dL AST 25 (14-36) U/L ALT 16 (6-35) U/L Alkaline Phosphatase 48 (38-126) U/L Total Protein 7.3 (6.3-8.2) g/dL Albumin 4.3 (3.5-5.1) g/dL Beta HCG, Quant 85214.00 mIU/ML Urine Color Yellow (Yellow) Urine Appearance Cloudy H (Clear) Urine pH 5.5 (5.0-9.0) Ur Specific [place] 1.012 (1.001-1.035) Urine Protein Negative (Negative) mg/dL Urine Glucose (UA) Negative (Negative) mg/dL Urine Ketones 3+ H (Negative) mg/dL Ur Blood (Man) Negative (Negative) Urine Nitrate Negative (Negative) Urine Bilirubin Negative (Negative) Urine Urobilinogen 0.2 (<2.0) mg/dL Add Ur Microanalysis Reviewed Leukocyte Esterase Rfl Trace H (Negative) KOREY/UL Urine RBC 0-2 (0-2) /hpf Urine WBC 6-10 H (0-3) /hpf Ur Squamous Epith Cells Few (Few) /hpf Urine Bacteria 1+ H /hpf Urine Casts 0-2 POC Urine HCG, Qual Positive (Negative) <Dianna Edwards, FISH CLEANER MACHINE TENDER - Last Filed: 10/15/24 18:20> Lab Results 10/15/24 10/15/24 10/15/24 Range/Units 18:09 21:07 21:14 WBC 10.9 H (4.5-10.0) K/mm3 RBC 3.79 L (4.2-5.4) M/mm3 Hgb 12.0 (12.0-15.0) g/dL Hct 35.7 L (37.0-47.0) % MCV 94.2 (80-100) fl MCH 31.7 (26-34) pg MCHC 33.6 (32-36) g/dl RDW 12.8 (11.5-14.5) % Plt Count 160 (150-375) k/mm3 MPV 10.1 (7.4-10.4) fl Immature Gran % (Auto) Not Reportable Neut % (Auto) Not Reportable Lymph % (Auto) Not Reportable [place] % (Auto) Not Reportable Eos % (Auto) Not Reportable Baso % (Auto) Not Reportable Lymph # (Auto) Not Reportable [place] # (Auto) Not Reportable Eos # (Auto) Not Reportable Baso # (Auto) Not Reportable Abs Immat Gran (auto) Not Reportable Absolute Neuts (auto) Not Reportable Absolute Nucleated RBC Not Reportable Total Counted 100 Neutrophils % (Manual) 91 H (46-73) % Band Neutrophils % 4 (0-6) % Lymphocytes % (Manual) 4.0 L (18-44) % Monocytes % (Manual) 1 L (3-9) % Nucleated RBC % Not Reportable Abs Neuts (Manual) 10.35 H (1.3-6.7) K/mm3 Abs Lymphs (Manual) 0.43 L (1.1-4.5) K/mm3 Abs Monocytes (Manual) 0.10 (0.1-0.90) K/mm3 Platelet Estimate Adequate (Adequate) Schistocytes None seen Sodium 130 L (137-145) mmol/L Potassium 3.9 (3.4-5.0) mmol/L Chloride 100 (98-107) mmol/L Carbon Dioxide 21 L (22-30) mmol/L Anion Gap 9 (4-12) mmol/L BUN 9 (7-17) mg/dL Creatinine 0.52 L (0.7-1.0) mg/dL Estim Creat Clear Calc 135 ml/min Estimated GFR > 60 (59 - ) Glucose 91 (65-110) mg/dL Calcium 9.1 (8.4-10.2) mg/dL Total Bilirubin 0.5 (0.2-1.3) mg/dL AST 25 (14-36) U/L ALT 16 (6-35) U/L Alkaline Phosphatase 48 (38-126) U/L Total Protein 7.3 (6.3-8.2) g/dL Albumin 4.3 (3.5-5.1) g/dL Beta HCG, Quant 75292.00 mIU/ML Urine Color Yellow (Yellow) Urine Appearance Cloudy H (Clear) Urine pH 5.5 (5.0-9.0) Ur Specific [place] 1.012 (1.001-1.035) Urine Protein Negative (Negative) mg/dL Urine Glucose (UA) Negative (Negative) mg/dL Urine Ketones 3+ H (Negative) mg/dL Ur Blood (Man) Negative (Negative) Urine Nitrate Negative (Negative) Urine Bilirubin Negative (Negative) Urine Urobilinogen 0.2 (<2.0) mg/dL Add Ur Microanalysis Reviewed Leukocyte Esterase Rfl Trace H (Negative) KOREY/UL Urine RBC 0-2 (0-2) /hpf Urine WBC 6-10 H (0-3) /hpf Ur Squamous Epith Cells Few (Few) /hpf Urine Bacteria 1+ H /hpf Urine Casts 0-2 POC Urine HCG, Qual Positive (Negative) <Henrietta Espana PA-C - Last Filed: 10/15/24 23:42> Discharge Plan Discharge Clinical Impression: Acute right flank pain, Dehydration, Abnormal urinalysis, Nausea and vomiting during <Dianna Edwards APRN - Last Filed: 10/15/24 18:20> Patient Disposition: Home <Dianna Edwards APRN - Last Filed: 10/15/24 18:20> Condition: Stable <iDanna Edwards APRN - Last Filed: 10/15/24 18:20> Instructions: Antibiotic Form, Flank Pain (ED), Urinary Tract Infection in (ED) <Dianna Edwards APRN - Last Filed: 10/15/24 18:20> Additional Instructions: You were evaluated in the emergency department for right flank pain, nausea and vomiting. Ultrasound shows no evidence of fluid backing up and your kidney or kidney stones. You may have a urinary tract infection that is causing her pain verses a muscular origin as discussed. Please take the antibiotics as directed, metoclopramide as needed for nausea and Tylenol as needed for pain. Please follow-up closely with your OBGYN. Return to the emergency department if you develop abdominal pain, vaginal bleeding, fever, your unable to tolerate food or fluids, worsening pain, or other concerning symptoms. <Dianna Edwards APRN - Last Filed: 10/15/24 18:20> Patient Language: Macedonian <Dianna Edwards APRN - Last Filed: 10/15/24 18:20> Prescriptions: New acetaminophen 500 mg capsule 500 mg PO Q6H PRN (Reason: pain) Qty: 14 0RF cefdinir 300 mg capsule 300 mg PO Q12H Qty: 14 0RF metoclopramide HCl 10 mg tablet 10 mg PO Q6H PRN (Reason: nausea and vomiting) Qty: 14 0RF <Dianna Edwards APRN - Last Filed: 10/15/24 18:20> Follow-up/Referrals: Herlinda Guthrie MD [Primary Care Provider] - Troy Toth MD [Physician] - <Dianna Edwards APRN - Last Filed: 10/15/24 18:20>
[2024-10-15 18:20] LABS: Hematocrit 35.7 % (37.0-47.0); Hemoglobin 12.0 g/dL (12.0-15.0); Mean Corpuscular HGB Conc 33.6 g/dl (32-36); Mean Corpuscular Hemoglobin 31.7 pg (26-34); Mean Corpuscular Volume 94.2 fl (80-100); Platelet Count Result 160 k/mm3 (150-375); Red Blood Count 3.79 M/mm3 (4.2-5.4); White Blood Count 10.9 K/mm3 (4.5-10.0)
[2024-10-15 18:45] LABS: Alanine Aminotransferase 16 U/L (6-35); Albumin Level 4.3 g/dL (3.5-5.1); Alkaline Phosphatase 48 U/L (38-126); Anion Gap 9 mmol/L (4-12); Aspartate Amino Transferase 25 U/L (14-36); Bilirubin,Total 0.5 mg/dL (0.2-1.3); Blood Urea Nitrogen 9 mg/dL (7-17); Calcium 9.1 mg/dL (8.4-10.2); Carbon Dioxide 21 mmol/L (22-30); Chloride 100 mmol/L (98-107); Estimated CRCL calculation 135 ml/min; Estimated Glomerular Filt Rate > 60; Glucose 91 mg/dL (65-110); Potassium 3.9 mmol/L (3.4-5.0); Sodium 130 mmol/L (137-145); Total Protein 7.3 g/dL (6.3-8.2)
[2024-10-15 18:59] LABS: Band Neutrophils Percent 4 % (0-6); Lymphocytes Absolute Manual 0.43 K/mm3 (1.1-4.5); Lymphocytes Percent Manual 4.0 % (18-44); Monocytes Absolute Manual 0.10 K/mm3 (0.1-0.90); Monocytes Percent Manual 1 % (3-9); Neutrophils Absolute Manual 10.35 K/mm3 (1.3-6.7); Neutrophils Percent Manual 91 % (46-73); Schistocytes None Seen; Total Cells Counted 100
[2024-10-15 19:30] LABS: Beta HCG Quantitative 45102.00 mIU/ML
[2024-10-15 21:16] LABS: BEDSIDEPREGUCG Positive (Negative)
[2024-10-15 21:31] LABS: Add Urine Microscopic? YES; Appearance Urine Cloudy (Clear); Glucose Urine UA Negative (Negative); Leukocyte Esterase Ur Trace LEU/UL (Negative); Need Manual Microscopic Reviewed; Nitrate Urine Negative (Negative); Non Pathogenic Casts 0-2; Specific Grav Ur 1.012 (1.001-1.035)
[2024-10-15] MEDS: ACETAMINOPHEN 500 MG TABLET 1000 MG PO (21:48)
[2024-10-15] MEDS: SODIUM CHLORIDE 0.9% IV 1,000 ML 999 ML IV CONT (21:53)
--- OUTSIDE RECORDS SUMMARY | 2024-10-15 22:02 | XMS_ITS | Clinical Summary ---
Author Organization [facility] Address [address] [place] [address] Care Team Providers Care Epic Kaleidoscope Analyst Name Role Phone Unavailable Primary Care Provider Unavailabl e Source Comments [facility],non-owned Affiliates and Associated Physician Practices is amultiple site organization consisting of ambulatory clinics and hospital sitesin [place], [place], [place] and [place]. This disclosure is being madepursuant to the Care Everywhere program and may not contain all information available regarding this patient. 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
[2024-10-15] MEDS: METOCLOPRAMIDE HCL INJ 10 MG/2 ML VIAL IV PUSH (23:05)
== END 2024-10-16 00:06 | disposition home or self-care (01) ==
PROVIDERS: Registered Nurse; Emergency Provider Physician Assistant; PCP Family Medicine
DX: O99.282 Endocrine, nutritional and metabolic diseases complicating pregnancy, second trimester (principal); E86.0 Dehydration; O21.9 Vomiting of pregnancy, unspecified; O26.892 Other specified pregnancy related conditions, second trimester; R82.998 Other abnormal findings in urine; Z3A.14 14 weeks gestation of pregnancy
CPT/HCPCS: 36415; 76775; 80053; 81001; 81025; 84702; 85025; 87086; 96361; 96374; 99284; A9270; J2765; J7030

== ENCOUNTER 2025-03-01 20:23 | Observation (INO) | payer MEDICAID, SELFPAY ==
[2025-03-01] VITALS (7 sets, daily range): BP systolic 111–146; BP diastolic 63–123; PULSE 109–145; TEMP 37; BMI 29.2
[2025-03-01 21:34] LABS: Add Urine Microscopic? YES; Appearance Urine Cloudy (Clear); Glucose Urine UA Negative (Negative); Leukocyte Esterase Ur Trace LEU/UL (Negative); Need Manual Microscopic Reviewed; Nitrate Urine Negative (Negative); Specific Grav Ur 1.034 (1.001-1.035)
[2025-03-01] MEDS: LACTATED RINGERS 1,000 ML 999 ML IV CONT (22:00)
[2025-03-01] MEDS: CEPHALEXIN 500 MG CAPSULE PO (22:00)
[2025-03-01 22:17] LABS: Hematocrit 34.9 % (37.0-47.0); Hemoglobin 11.9 g/dL (12.0-15.0); Immature Granulocyte Percent A 0.6 % (0-0.5); Lymphocytes Absolute Auto 0.37 K/mm3 (0.9-3.2); Mean Corpuscular HGB Conc 34.1 g/dl (32-36); Mean Corpuscular Hemoglobin 32.1 pg (26-34); Mean Corpuscular Volume 94.1 fl (80-100); Nucleated Red Blood Cells Absolute Auto 0.000 K/mm3 (0.0-0.012); Nucleated Red Blood Cells Perc 0.0 % (0.0-0.2); Platelet Count Result 175 k/mm3 (150-375); Red Blood Count 3.71 M/mm3 (4.2-5.4); White Blood Count 9.1 K/mm3 (4.5-10.0)
[2025-03-01 22:28] LABS: Alanine Aminotransferase 22 U/L (6-35); Albumin Level 3.9 g/dL (3.5-5.1); Alkaline Phosphatase 120 U/L (38-126); Anion Gap 8 mmol/L (4-12); Aspartate Amino Transferase 26 U/L (14-36); Bilirubin,Total 0.8 mg/dL (0.2-1.3); Blood Urea Nitrogen 10 mg/dL (7-17); Calcium 8.7 mg/dL (8.4-10.2); Carbon Dioxide 19 mmol/L (22-30); Chloride 104 mmol/L (98-107); Estimated Glomerular Filt Rate > 60; Glucose 114 mg/dL (65-110); Potassium 3.6 mmol/L (3.4-5.0); Sodium 131 mmol/L (137-145); Total Protein 7.1 g/dL (6.3-8.2)
--- NOTE | 2025-03-01 23:25 | OBADM ---
This patient, Opal Spaer, admitted to the OB room OB Post 117 for observation. Patient/family oriented to hospital policies and general routines including ID bracelet, bed and alarms, visiting hours, pain management, procedures, bathroom and other care routines, personal items, smoking policy, room service/diet, and visiting hours. Patient/Family are encouraged to report perceived risks to care and to ask questions if they do not understand what they are told or what they should do.
--- NOTE | 2025-03-03 07:52 | P.PNOB_ITS ---
OB - Triage/Final Diagnosis Visit Information Date of evaluation: 03/01/25 Reason for evaluation: other (back pain) Comments/Additional reasons for admission: I have assessed the risk for this patient, Opal Spear, and determined that she would benefit from observation care. Evaluation Laboratory results: Laboratory Tests 03/01/25 03/01/25 20:36 22:12 WBC 9.1 RBC 3.71 L Hgb 11.9 L Hct 34.9 L MCV 94.1 MCH 32.1 MCHC 34.1 RDW 12.4 Plt Count 175 MPV 9.4 Immature Gran % (Auto) 0.6 H Neut % (Auto) 86.7 H Lymph % (Auto) 4.1 L [place] % (Auto) 6.1 Eos % (Auto) 2.1 Baso % (Auto) 0.4 Lymph # (Auto) 0.37 L [place] # (Auto) 0.6 Eos # (Auto) 0.2 Baso # (Auto) 0.0 Abs Immat Gran (auto) 0.05 H Absolute Neuts (auto) 7.9 H Absolute Nucleated RBC 0.000 Nucleated RBC % 0.0 Sodium 131 L Potassium 3.6 Chloride 104 Carbon Dioxide 19 L Anion Gap 8 BUN 10 Creatinine 0.59 L Estim Creat Clear Calc Not Reportable Estimated GFR > 60 Glucose 114 H Calcium 8.7 Total Bilirubin 0.8 AST 26 ALT 22 Alkaline Phosphatase 120 Total Protein 7.1 Albumin 3.9 Urine Color Yellow Urine Appearance Cloudy H Urine pH 5.5 Ur Specific [place] 1.034 Urine Protein 1+ H Urine Glucose (UA) Negative Urine Ketones 4+ H Ur Blood (Man) Negative Urine Nitrate Negative Urine Bilirubin Negative Urine Urobilinogen 1.0 Add Ur Microanalysis Reviewed Leukocyte Esterase Rfl Trace H Urine RBC 0-2 Urine WBC 21-50 H Ur Squamous Epith Cells Moderate Urine Bacteria 4+ H Urine Casts 3-5
== END 2025-03-01 23:40 | disposition home or self-care (01) ==
PROVIDERS: Advanced Practice Midwife; Admitting Provider Obstetrics & Gynecology; PCP Family Medicine; Visit Provider Obstetrics & Gynecology
DX: O26.893 Other specified pregnancy related conditions, third trimester (principal); Z3A.33 33 weeks gestation of pregnancy
CPT/HCPCS: 36415; 80053; 81001; 85025; A9270; G0378; G0379; J7120

== ENCOUNTER 2025-03-22 17:14 | Outpatient (CLI) | payer OTHER, SELFPAY ==
--- OUTSIDE RECORDS SUMMARY | 2025-03-22 17:54 | XMS_ITS | Continuity of Care Document ---
Author Organization [facility] Address [address] [place] [address] [place] [address] Assessment No assessment recorded. Plan of Treatment Reminders Order Date Submit Date Provider Last Modified By Organization Details Last Modified Time Details Appointments OB ROUTINE 2025 11:45A Radha SINGLETON MD Not available Not available Not available OB ROUTINE 2025 11:00A Radha RAMAN MD Not available Not available Not available OB ROUTINE 2025 10:45A Radha RAMAN MD Not available Not available Not available Lab urinalysi s, dipstick 2024 025 [email or web address], [address], [place], [address], 01/02/2025 11:24:44 Referral None recorded. Procedures None recorded. Surgeries None recorded. Imaging None recorded. Medication Orders Diflucan 150 mg tablet 2024 025 [id number], [address], [place], [place], [id number], 01/27/2025 10:40:10 Macrobid 100 mg capsule 2024 025 [id number], [address], [place], [place], [id number], 01/16/2025 05:01:36 Patient TargetsNo targets recorded. Patient InstructionsNo instructions recorded. Reason for Referral None Reported. Results Created Date Observation Date Name Description Value Unit Range Abnormal Flag Note LastModifiedBy Organization Detail LastModifiedTime 10/07/19 25 10/06/2024 [UNIT Y] ANEUP LOIDY NIPT fraction 8.1% normal Not Available [facility] [address], [place], [address], 10/06/2024 23:31:19 10/07/19 25 10/06/2024 [UNIT Y] ANEUP LOIDY NIPT 22Q11.2 microdeletio n LOW RISK <1 in 10,000 normal Not Available [facility] [address], [place], [address], 10/06/2024 23:31:19 10/07/19 25 10/06/2024 [UNIT Y] ANEUP LOIDY NIPT sex chromosome aneuploidy NOT DETECT ED normal Not Available [facility] [address], [place], [address], 10/06/2024 23:31:19 10/07/19 25 10/06/2024 [UNIT Y] ANEUP LOIDY NIPT monosomy X LOW RISK <1 in 10,000 normal Not Available [facility] [address], [place], [address], 10/06/2024 23:31:19 10/07/19 25 10/06/2024 [UNIT Y] ANEUP LOIDY NIPT trisomy 13 LOW RISK <1 in 10,000 normal Not Available [facility] [address], [place], [address], 10/06/2024 23:31:19 10/07/19 25 10/06/2024 [UNIT Y] ANEUP LOIDY NIPT trisomy 18 LOW RISK <1 in 10,000 normal Not Available [facility] [address], [place], [address], 10/06/2024 23:31:19 10/07/19 25 10/06/2024 [UNIT Y] ANEUP LOIDY NIPT trisomy 21 LOW RISK <1 in 10,000 normal Not Available [facility] [address], [place], [address], 10/06/2024 23:31:19 10/07/19 25 10/06/2024 [UNIT Y] ANEUP LOIDY NIPT sex FEMALE normal Not Available [facility] [address], [place], [address], 10/06/2024 23:31:19 10/07/19 25 10/06/2024 [UNIT Y] ANEUP LOIDY NIPT gestation SINGLE TON normal Not Available [facility] [address], [place], [address], 10/06/2024 23:31:19 10/07/19 25 10/06/2024 [UNIT Y] ANEUP LOIDY NIPT for detailed report, see pdf See PDF normal Not Available [facility] [address], [place], [address], 10/06/2024 23:31:19 10/13/19 25 10/12/2024 [UNIT Y] JENIFER Parra sickle cell disease/beta -thalassemia /hemoglobino pathies carrier screen NEGATI VE normal Not Available [facility] [address], [place], [address], 10/12/2024 10:46:31 10/13/19 25 10/12/2024 [UNIT Y] JENIFER Parra alpha-thalas semia carrier screen NEGATI VE normal Not Available [facility] [address], [place], [address], 10/12/2024 10:46:31 10/13/19 25 10/12/2024 [UNIT Y] JENIFER Parra cystic fibrosis carrier screen NEGATI VE normal Not Available [facility] [address], [place], [address], 10/12/2024 10:46:31 10/13/19 25 10/12/2024 [UNIT Y] JENIFER SINAI Parra spinal muscular atrophy carrier screen NEGATI VE 2 SMN1 copies , SNP not presen t normal Not Available [facility] [address], [place], [address], 10/12/2024 10:46:31 10/13/19 25 10/12/2024 [UNIT Y] JENIFER Parra for detailed report, see pdf See PDF normal Not Available [facility] [address], [place], [address], 10/12/2024 10:46:31 10/01/19 25 09/30/2024 CBC W/DIF F WBC 5.6 10'3/ uL 3.5-10 .5 Not Available [facility] (Lab) [address] [facility], [place], [address], 10/01/2024 11:38:09 10/01/19 25 09/30/2024 CBC W/DIF F RBC 3.95 10'6/ uL (based on docume nted legal sex) 3.80-5 .20 Not Available [facility] (Lab) [address], [place], [address], 10/01/2024 11:38:09 10/01/19 25 09/30/2024 CBC W/DIF F HGB 12.5 g/dL (based on docume nted legal sex) 11.6-1 5.4 Not Available [facility] (Lab) [address] , [place], [address], 10/01/2024 11:38:09 10/01/19 25 09/30/2024 CBC W/DIF F HCT 37.1 % (based on docume nted legal sex) 34.0-4 5.0 Not Available [facility] (Lab) [address] , [place], [address], 10/01/2024 11:38:09 10/01/19 25 09/30/2024 CBC W/DIF F MCV 93.9 fL 80.0-9 9.0 Not Available [facility] (Lab) [address], [place], [address], 10/01/2024 11:38:09 10/01/19 25 09/30/2024 CBC W/DIF F MCH 31.6 pg 27.0-3 4.0 Not Available [facility] (Lab) [address], [place], [address], 10/01/2024 11:38:09 10/01/19 25 09/30/2024 CBC W/DIF F MCHC 33.7 g/dL 32.0-3 5.5 Not Available [facility] (Lab) [address], [place], [address], 10/01/2024 11:38:10/01/1909/30/2024 CBC W/DIF F RDW 12.8 % 11.0-1 5.0 Not Available [facility] (Lab) [address], [place], [address], 10/01/2024 11:38:09 10/01/1909/30/2024 CBC W/DIF F plt 198 10'3/ uL 150-40 0 Not Available [facility] (Lab) [address] [facility], [place], [address], 10/01/2024 11:38:09 10/01/1909/30/2024 CBC W/DIF F MPV 10.8 fL 8.8-12 .1 Not Available [facility] (Lab) [address] [facility], [place], [address], 10/01/2024 11:38:10/01/19 25 09/30/2024 CBC W/DIF F NRBC's 0.0 % 0.0 Not Available [facility] (Lab) [address] [facility], [place], [address], 10/01/2024 11:38:09 10/01/19 25 09/30/2024 CBC W/DIF F absolute NRBCs 0.0 10'3/ uL no refere nce range establ ished Not Available [facility] (Lab) [address] [facility], [place], [address], 10/01/2024 11:38:09 10/01/19 25 09/30/2024 CBC W/DIF F neutrophils 73.5 % 34.0-7 3.0 high Not Available [facility] (Lab) [address] [facility], [place], [address], 10/01/2024 11:38:09 10/01/1909/30/2024 CBC W/DIF F lymphocytes 18.1 % 15.0-5 0.0 Not Available [facility] (Lab) [address] [facility], [place], [address], 10/01/2024 11:38:09 10/01/1909/30/2024 CBC W/DIF F monocytes 6.4 % 1.0-15 .0 Not Available [facility] (Lab) [address] [facility], [place], [address], 10/01/2024 11:38:09 10/01/19 25 09/30/2024 CBC W/DIF F eosinophils 1.2 % 0.0-8. 0 Not Available [facility] (Lab) [address] [place], [address], 10/01/2024 11:38:09 10/01/1909/30/2024 CBC W/DIF F basophils 0.4 % 0.0-2. 0 Not Available [facility] (Lab) [address] [facility], [place], [address], 10/01/2024 11:38:09 10/01/1909/30/2024 CBC W/DIF F immature granulocytes 0.4 % no define d refere nce range Immat ure Granu locyt es (IG) repre sents autom ated enume ratio n of Metam yeloc ytes, Myelo cytes and Promy elocy bud when IG is < 5%. Blast s are not inclu ded in IG and repor manisha separ ately if prese nt. Not Available [facility] (Lab) [address] [facility], [place], [address], 10/01/2024 11:38:09 10/01/19 25 09/30/2024 CBC W/DIF F absolute neutrophils 4.1 10'3/ uL 1.5-8. 0 Not Available [facility] (Lab) [address] [facility], [place], [address], 10/01/2024 11:38:10/01/19 25 09/30/2024 CBC W/DIF F absolute lymphocytes 1.0 10'3/ uL 1.0-4. 0 Not Available [facility] (Lab) [address] [facility], [place], [address], 10/01/2024 11:38:09 10/01/19 25 09/30/2024 CBC W/DIF F absolute monocytes 0.4 10'3/ uL 0.2-1. 0 Not Available [facility] (Lab) [address] [facility], [place], [address], 10/01/2024 11:38:09 10/01/19 25 09/30/2024 CBC W/DIF F absolute eosinophils 0.1 10'3/ uL 0.0-0. 6 Not Available [facility] (Lab) [address] [facility], [place], [address], 10/01/2024 11:38:09 10/01/19 25 09/30/2024 CBC W/DIF F absolute basophils 0.0 10'3/ uL 0.0-0. 3 Not Available [facility] (Lab) [address] [facility], [place], [address], 10/01/2024 11:38:09 10/01/19 25 09/30/2024 CBC W/DIF F absolute immature granulocytes 0.0 10'3/ uL 0.00-0 .10 Refer ence range s for nonbi nary/ inter sex or unspe cifie d gende r patie nts have not been estab lishe d. Betzy e refer to the angelinao wing table for range s estab lishe d for cisge nder patie nts and evalu ate in the clini jasmeet marivel xt of the indiv idual patie nt: https ://la bhand book. nm.or g/gen derx Not Available [facility] (Lab) [address], [place], [address], 10/01/2024 11:38:09 10/01/19 25 09/30/2024 HEPAT ITIS B SURFA CE ANTIG EN hepatitis B surface antigen Non-re active non-re active This assay was perfo rmed using [employer] ratio n reage nts and test kits. Value s obtai tacho with other assay metho ds or kits canno t be used inter cronin eably . Not Available [facility] (Lab) [address], [place], [address], 10/01/2024 11:38:10 10/01/19 25 09/30/2024 HIV 1/2 ANTIG EN/AN TIBOD Y, REFLE X CONFI RMATI ON HIV antigen/anti body Nonrea ctive nonrea ctive HIV-1 antig en and HIV-1 /HIV- 2 antib odies were not detec manisha. No labor atory evide nce of HIV infec tion. Not Available [facility] (Lab) [address], [place], [address], 10/01/2024 11:38:10 10/01/19 25 09/30/2024 HEPAT ITIS C ANTIB ALISHA SCREE N, REFLE X TO CONFI RMATI ON hepatitis C antibody Non-re active non-re active Antib odies to HCV Not Detec manisha, does not exclu de the possi bilit y of expos ure to HCV. Not Available [facility] (Lab) [address], [place], [address], 10/01/2024 11:38:11 10/01/19 25 09/30/2024 RUBEL LA IGG ANTIB ALISHA, QUANT rubella antibodies, IgG Reacti ve reacti ve Not Available [facility] (Lab) [address] [facility], [place], [address], 10/01/2024 11:38:11 10/01/19 25 09/30/2024 RUBEL LA IGG ANTIB ALISHA, QUANT rubella antibodies, IgG quant 12.5 IU/mL >=10 Non-r eacti ve (Non- Immun e) <10 IU/mL React adina (Immu ne) > or = 10 IU/mL Not Available [facility] (Lab) [address] [facility], [place], [address], 10/01/2024 11:38:11 10/01/19 25 09/30/2024 TYPE/ RH/SC REEN ABO/Rh type A POS Not Available [facility] (Lab) [address] [facility], [place], [address], 10/01/2024 11:38:12 10/01/19 25 09/30/2024 TYPE/ RH/SC REEN antibody screen NEG Not Available [facility] (Lab) [address] [facility], [place], [address], 10/01/2024 11:38:12 10/01/19 25 09/30/2024 TYPE/ RH/SC REEN exp date 2024 23:59 Not Available [facility] (Lab) [address] [facility], [place], [address], 10/01/2024 11:38:12 10/01/19 25 09/30/2024 HEMOG LOBIN A1C hemoglobin A1C 4.9 % 4.0-5. 6 The Ameri can Diabe bud [employer] iatio n recom mends that a prima ry goal of thera gayathri cruz d be a HBA1C of < 7% and that physi cialul cruz d reeva luate the treat ment regim en in patie nts with HBA1C value s consi stent ly > 8%. <5.7% Swati l 5.7 - 6.4% Incre ased risk for diabe bud >=6.5 % Diagn ostic of diabe bud <7.0% Goal of thera py >8.0% Actio n sugge sted Not Available [facility] (Lab) [address] [facility], [place], [address], 10/01/2024 11:38:13 10/01/19 25 09/30/2024 RPR SCREE N, REFLE X TITER /CONF IRMAT ION RPR qualitative Nonrea ctive nonrea ctive Not Available [facility] (Lab) [address] [facility], [place], [address], 10/01/2024 11:38:13 10/01/1909/30/2024 CULTU RE: URINE result report SEE RESULT S BELOW Test: Cultu re: Urine Speci men Sourc e: Urine Voide d Speci men Type: Urine Speci men Date: 025 1011 Resul t Date: 2024 0559 Resul t Statu s: Final resul t Abnor mal: No Resul ting Lab: [facility] [address] [facility] [address] Tel: CULTU RE ----- ----- ----- --- No growt h in 1 day (dete ction level of 10,00 0 colon ies / ml.) Not Available [facility] (Lab) [address], [place], [address], 10/02/2024 07:03:32 10/01/1909/30/2024 drug scree n, urine Amphetamines : negati ve Not Available [facility] [address], [place], [address], 09/30/2024 10:52:38 10/01/19 25 09/30/2024 drug scree n, urine Cannabinoids : positi ve Not Available [facility] [address], [place], [address], 09/30/2024 10:52:38 10/01/19 25 09/30/2024 drug scree n, urine Cocaine: negati ve Not Available [facility] [address], [place], [address], 09/30/2024 10:52:38 10/01/19 25 09/30/2024 drug scree n, urine Opiates: negati ve Not Available [facility] [address], [place], [address], 09/30/2024 10:52:38 10/01/19 25 09/30/2024 drug scree n, urine Phenocyclidi ne: negati ve Not Available [facility] [address], [place], [address], 09/30/2024 10:52:38 10/01/19 25 09/30/2024 drug scree n, urine Barbiturates : negati ve Not Available [facility] [address], [place], [address], 09/30/2024 10:52:38 10/01/19 25 09/30/2024 drug scree n, urine Benzodiazepi carla: negati ve Not Available [facility] [address], [place], [address], 09/30/2024 10:52:38 10/01/19 25 09/30/2024 drug scree n, urine Ethanol: negati ve Not Available [facility] [address], [place], [address], 09/30/2024 10:52:38 10/01/19 25 09/30/2024 drug scree n, urine Hallucinogen s: negati ve Not Available [facility] [address], [place], [address], 09/30/2024 10:52:38 10/01/19 25 09/30/2024 drug scree n, urine Inhalants: negati ve Not Available [facility] [address], [place], [address], 09/30/2024 10:52:38 10/01/19 25 09/30/2024 drug scree n, urine Anabolic Steroids: negati ve Not Available [facility] [address], [place], [address], 09/30/2024 10:52:38 11/27/19 25 11/26/2024 CULTU RE: URINE result report SEE RESULT S BELOW Test: Cultu re: Urine Speci men Sourc e: Urine Voide d Speci men Type: Urine Speci men Date: 1312 Resul t Date: 2206 Resul t Statu s: Final resul t Abnor mal: No Resul ting Lab: [facility] [address] [facility] [address] Tel: CULTU RE ----- ----- ----- --- No growt h in 1 day (dete ction level of 10,00 0 colon ies / ml.) Not Available [facility] (Lab) [address] [place], [address], 11/28/2024 13:32:03 11/27/19 25 11/26/2024 CT/GC AND TRICH OMONA S VAGIN WINSTON (RRNA ), URINE chlamydia trachomatis, PCR Negati ve negati ve Not Available [facility] (Lab) [address] [place], [address], 11/28/2024 13:32:04 11/27/19 25 11/26/2024 CT/GC AND TRICH OMONA S VAGIN WINSTON (RRNA ), URINE neisseria gonorrhoeae, PCR Negati ve negati ve Not Available [facility] (Lab) [address] [place], [address], 11/28/2024 13:32:04 11/27/19 25 11/26/2024 CT/GC AND TRICH OMONA S VAGIN WINSTON (RRNA ), URINE trichomonas vaginalis ribosomal RNA (rrna) Negati ve negati ve Not Available [facility] (Lab) [address] [facility], [place], [address], 11/28/2024 13:32:04 01/03/20 25 01/02/2025 CULTU RE: URINE result report SEE RESULT S BELOW Test: Cultu re: Urine Speci men Sourc e: Urine - Clean Catch Speci men Type: Urine Speci men Date: 01/02 1101 Resul t Date: 01/04 0616 Resul t Statu s: Final resul t Abnor mal: No Resul ting Lab: [facility] [address] [facility] [address] Tel: CULTU RE ----- ----- ----- --- Cultu re resul t (>=3 organ isms prese nt) indic ates possi ble conta minat ion. Repea t cultu re if sympt oms indic ate. Not Available [facility] (Lab) [address] [facility], [place], [address], 01/04/2025 07:17:57 01/03/2001/02/2025 WOMEN 'S HEALT H SWAB, LUIS MANUEL bacterial vaginosis (bv), tma Negati ve negati ve This test detec ts ribos omal RNA from bacte melia assoc iated with bacte rial vagin osis (BV), inclu ding Lacto bacil ivana (L. gasse ri, L. crisp atus and L. jense jalen), Gardn erell a vagin winston, and Atopo bium vagin ae by Trans cript ion-M ediat ed Ampli ficat ion (TMA) . A singl e quali tativ e resul t is repor manisha based on instr ument softw are to deter mine BV posit adina or negat adina statu s. Not Available [facility] (Lab) [address] [facility], [place], [address], 01/05/2025 08:57:21 01/03/2001/02/2025 WOMEN 'S HEALT H SWAB, LUIS MANUEL jeanmarie species, tma Positi ve negati ve abnormal Not Available [facility] (Lab) [address] [facility], [place], [address], 01/05/2025 08:57:21 01/03/2001/02/2025 WOMEN 'S HEALT H SWAB, LUIS MANUEL jeanmarie glabrata, tma Negati ve negati ve Not Available [facility] (Lab) [address] [facility], [place], [address], 01/05/2025 08:57:21 01/03/2001/02/2025 WOMEN 'S HEALT H SWAB, LUIS MANUEL trichomonas vaginalis, tma Negati ve negati ve This assay tests for and diffe renti noemi ramos en Alyson da glabr steff, the Alyson da speci es group (C. albic ans, C. tropi calis , C. parap juan a is, C. dubli niens is), and Trich omona s vagin winston by Trans cript ion-M ediat ed Ampli ficat ion (TMA) . Not Available [facility] (Lab) [address] [facility], [place], [address], 01/05/2025 08:57:21 01/03/2001/02/2025 urina lysis , dipst ick Leukocytes trace Not Available [facility] [address], [place], [address], 01/02/2025 11:23:03 01/03/2001/02/2025 urina lysis , dipst ick Nitrite neg Not Available [facility] [address], [place], [address], 01/02/2025 11:23:03 01/03/2001/02/2025 urina lysis , dipst ick Urobilinogen norm Not Available [facility] [address], [place], [address], 01/02/2025 11:23:03 01/03/2001/02/2025 urina lysis , dipst ick Protein trace Not Available [facility] [address], [place], [address], 01/02/2025 11:23:03 01/03/2001/02/2025 urina lysis , dipst ick pH 7 Not Available [facility] [address], [place], [address], 01/02/2025 11:23:03 01/03/2001/02/2025 urina lysis , dipst ick Blood ++ Not Available [facility] [address], [place], [address], 01/02/2025 11:23:03 01/03/20 25 01/02/2025 urina lysis , dipst ick Specific [place] 1.070 Not Available [facility] re[facility] [address], [place], [address], 01/02/2025 11:23:03 01/03/2001/02/2025 urina lysis , dipst ick Ketone trace Not Available [facility] [address], [place], [address], 01/02/2025 11:23:03 01/03/2001/02/2025 urina lysis , dipst ick Bilirubin + Not Available [facility] [address], [place], [address], 01/02/2025 11:23:03 01/03/20 25 01/02/2025 urina lysis , dipst ick Glucose neg Not Available [facility] [address], [place], [address], 01/02/2025 11:23:03 01/03/20 25 01/02/2025 urina lysis , dipst ick Appearance clear Not Available [facility], [place], [address], 01/02/2025 11:23:03 01/03/20 25 01/02/2025 urina lysis , dipst ick Color yellow Not Available [facility] [address], [place], [address], 01/02/2025 11:23:03 10/01/19 25 09/30/2024 US, obste tric, nucha l trans lucen cy No observ ation record ed. [email or web address] [facility] [address], [place], [address], 09/30/2024 13:22:32 10/01/19 25 09/30/2024 US, obste tric, nucha l trans lucen cy No observ ation record ed. [facility] [address], [place], [address], 10/03/2024 17:35:49 11/27/19 25 11/26/2024 US, obste tric, 2nd or 3rd trime ster No observ ation record ed. [email or web address] [facility] [address], [place], [address], 11/26/2024 18:48:44 11/27/19 25 11/26/2024 US, obste tric, 2nd or 3rd trime ster No observ ation record ed. RODRIGO [facility] [address], [place], [address], 11/26/2024 20:56:33 11/27/19 25 11/26/2024 US, obste tric, 2nd or 3rd trime ster No observ ation record ed. RODRIGO [facility] [address], [place], [address], 11/26/2024 20:56:34 02/26/20 25 02/25/2025 US, obste tric, follo w-up No observ ation record ed. [facility] [address], [place], [address], 02/25/2025 13:29:09 02/26/20 25 02/25/2025 US, obste tric, follo w-up No observ ation record ed. [place] [facility] [address], [place], [address], 02/28/2025 16:38:30 03/02/20 25 03/01/2025 imagi ng/di agnos tic resul t No observ ation record ed. [facility] [address], [place], [address], 03/02/2025 16:17:21 Result Notes None recorded. Problems Name Problem SNOMED Code Status Onset Date Resolution Date Notes Provider Name and Address Organization Details Recorded Time 85414010 Active 025 [facility] 10:12:39 Acute cystitis 68669308 Active 025 CAITIE at 20 weeks BONITA RAMAN MD [address], [place], [address], [facility] 5 12:45:20 Problem Notes None recorded. Medical Equipment None Reported. Allergies No known drug allergies Medications Name Sig Start Date Stop Date Status Note LastModified by Organization Details LastModified Time amoxicillin 500 mg capsule TAKE 1 CAPSULE BY MOUTH TWICE DAILY FOR 7 DAYS 01/27 completed Not Available Not Available Not Available fluconazole 150 mg tablet TAKE 1 TABLET BY MOUTH NOW AND 1 TABLET IN 48 HOURS 01/27 completed Not Available Not Available Not Available acetaminoph en 500 mg tablet TAKE 1 TABLET BY MOUTH EVERY 6 HOURS NEEDED 01/02 completed Not Available Not Available Not Available Macrobid 100 mg capsule Take 1 capsule every 12 hours by oral route for 7 days. 01/16 completed Not Available Not Available Not Available cephalexin 500 mg capsule TAKE 1 CAPSULE BY MOUTH EVERY 12 HOURS FOR 10 DAYS active Not Available Not Available No t Available ondansetron 4 mg disintegrat ing tablet DISSOLVE 1 TO 2 TABLETS ON THE TONGUE EVERY 8 HOURS NEEDED active Not Available Not Available No t Available cefdinir 300 mg capsule TAKE ONE CAPSULE BY MOUTH EVERY 12 HOURS 11/26 completed Not Available Not Available Not Available metoclopram anil 10 mg tablet TAKE 1 TABLET BY MOUTH EVERY 6 HOURS NEEDED 11/26 completed Not Available Not Available Not Available Vitamin active Not Available Not Available Not Available Vitals Date Recorded Body height Body mass index (BMI) [Percentile] Per age and sex Body mass index (BMI) Body weight Systolic And Diastolic Provider Name and Address Organization Details Last Updated DateTime 01/02/2025 167.64 cm 86 % 27 kg/m2 86515.9 3 g 118/79 mm[Hg] Bailey Philip [facility] 11:04:56 Social History Question Answer Notes LastModified by Organizat ion Details LastModified Time Tobacco Smoking Status Never Smoker MANINDER john, [facility] 09/02/2024 17:29:38 Do You Have An Advance Directive? No Information n ot available 09/02/2024 If You Are , What Was Your Level Of Alcohol Consumption Prior To ? None [email or web address] Information not available 09/02/2024 Are You Blind Or Do You Have Difficulty Seeing? No [email or web address] Information n ot available 09/02/2024 What Is Your Level Of Caffeine Consumption? None [email or web address] Information not available 09/02/2024 In The 14 Days Before Symptom Onset, Have You Had Close Contact With A Laboratory-confirm ed COVID-19 While That Case Was Ill? No [email or web address] Information n ot available 09/02/2024 In The 14 Days Before Symptom Onset, Have You Had Close Contact With A Person Who Is Under Investigation For COVID-19 While That Person Was Ill? No [email or web address] Information not available 09/02/2024 Have You Been To An Area Known To Be High Risk For COVID-19? No [email or web address] Information not available 09/02/2024 Are You Deaf Or Do You Have Serious Difficulty Hearing? No [email or web address] Information not available 09/02/2024 What Type Of Diet Are You Following? REGULAR [email or web address] Information n ot available 09/02/2024 What Is The Highest Grade Or Level Of School You Have Completed Or The Highest Degree You Have Received? KL05116-2 [email or web address] Information not available 09/02/2024 Are There Any Guns Present In Your Home? No [email or web address] Information not available 09/02/2024 Do You Use Your Seat Belt Or Car Seat Routinely? Yes [email or web address] Information not available 09/02/2024 Are You Sexually Active? Yes Information not available 09/02/2024 Do You Have Smoke And Carbon Monoxide Detectors In Your Home? Yes [email or web address] Information not available 09/02/2024 Do You Use Sunscreen Routinely? Yes [email or web address] Information not available 09/02/2024 Has Tobacco Cessation Counseling Been Provided? No [email or web address] Information not available 09/02/2024 Do You Have Difficulty Walking Or Climbing Stairs? No Information not available 09/02/2024 How Many Years Have You Used E-cigarettes Or Vape? 3 [email or web address] Information not available 09/02/2024 Sex: Unknown Functional Status Question Answer Note LastModified by Organizat ion Details LastModified Time Do you use any illicit or recreational drugs? No [email or web address] Information not available 09/02/2024 Do you or have you ever used any other forms of tobacco or nicotine? Yes [email or web address] Information not available 09/02/2024 What is your level of alcohol consumption? None Information not available 09/02/2024 Do you or have you ever used smokeless tobacco? Never used smokeless tobacco [email or web address] Information not available 09/02/2024 Are you currently employed? No [email or web address] Information not available 09/02/2024 Are you able to walk independently without assistance or assistive devices? [email or web address] Information not available 09/02/2024 Are you able to care for yourself independently? Yes [email or web address] Information not available 09/02/2024 Do you have difficulty dressing, bathing, grooming, or toileting? Yes [email or web address] Information not available 09/02/2024 Do you or have you ever used e-cigarettes or vape? Current user of electronic cigarettes [email or web address] Information not available 09/02/2024 What is your exercise level? None [email or web address] Information not available 09/02/2024 Mental Status Question Answer Note LastModified by Organization D etails LastModified Time Do you feel stressed (tense, restless, nervous, or anxious, or unable to sleep at night)? [id number] [email or web address] Information not available 09/02/2024 Family History Relationship Description Onset Age of this Age Resolved Age Notes LastModified by Organization Details LastModified Time Mother Malignant neoplasm of breast [email or web address] Not available 2024 17:29:18 Maternal Grandmother Malignant neoplasm of lung [email or web address] Not available 2024 17:29:27 Medical History Condition Response Allergies (Food, seasonal, environmental ) N Other N Breast Cancer N Drug/Latex Allergies/Reactions N Blood Transfusion N Lung Disease N [...] Neurologic/Epilepsy N Endometriosis N High Cholesterol N Fibromyalgia N Headaches N Kidney Disease N Heart Problems N Kidney or Bladder Problems N Thyroid Problems N GI Problems N Eating Disorder [...] Diagnosis SNOMED-CT Code Diagnosis ICD10 Code Diagnosis IMO Codes Diagnosis Note [id number] BONITA RAMAN MD [facility] [address] [address] 12/24/2024 12:07:30 12/24/2024 12:43:03 screening [id number] Z36.89 Gestation period, 24 weeks [id number] Z3A.24 [id number] - continue PNV [id number] Swathi Hodge CNM [facility] [address],[facility] [address] 01/02/2025 10:55:35 01/02/2025 11:18:13 Vaginal discharge [id number] N89.8 33480 Delay when starting to pass urine 4999928 R39.11 174319 Urinary symptoms [id number] R39.9 [id number] Health Concerns Section Related Observation LastModified by Organization Detai ls LastModified Time None Recorded Concern Status LastModified by Organization Details LastModified Time None Recorded Payers Encounter Date Sequence Insurance Name Policy Number Policy Snowden Covered Member ID Snowden Member ID Guarantor Name 01/02/2025 1 [facility] (MEDICAID HMO) [id number] Opal Spear [id number] Opal Spear Notes Date Note Type Note Provider Name and Address Organization Details Recorded Time 01/02/2025 text/html OB ProblemReport ed by [facility] as noted in the HPI [facility] 01/02/2025 11:24:59 OBGyn Episode Ob Episode Information Episode Created Date Number of Fetuses Patient Bloodtype Patient rh Status Prepregnancy Weight lbs Domestic Partner Domestic Partner Phone Father Name Sales Force Administrator Status 10/01/19 25 1 A Positive 137 Akash vann OPEN Fetus Data First Name Last Name Admitted to NICU Weight (g) Sex Living Outcome Pediatric Complications Fetus ID Race Codes Race Delivery Type [id number] Problems Problem Notes Problem Name Start Date End Date Resolution Snomed Code Not e Acute cystitis 11/26/2024 [id number] CAITIE at 20 weeks Wale Calculation Initial Wale Date Initial Exam Date Initial Exam Provider Initial Ultrasound Date Last Menstrual Period Date Ultra Sound Weeks Gestation 04/15/2025 09/30/2024 09/02/2024 07/01/2024 7 Eighteen To Twenty Week Wale Update Ultra Sound Date Fundal Height At Umbil Quickening Date Ultra Sound Latest Weeks Gestation Final Wale Confirmed By Final Wale Confirmed Date Final Wale Date Ultra Sound Latest Days Gestation 11/27/19 25 19 [email or web address] 09/30/2024 04/15/19 26 4 Pre- Flowsheet Flowsheet Date 09/30/2024 Demarco Score Blood Edema Fundus Height Fundus Units Glucose Ketones Leukocytes Nitrite Labor Signs Protein Cervic Dilation Cervic Effacement Cervic Station Type Weight in lbs Pre/Post Dialysis Refused Weight 138.715044889671 BP Diastolic BP Location Tested BP Systolic BP Type 80 L arm 127 sitting Fetus Heart Rate Present A 164 Fetus Movement Comments Patient presents to [facility]. otherwise uncomplicated. No nausea or cramping. NT/NB wnl today, desires NIPT. Will draw today with new OB labs. RTC 4 weeks for routine care. Flowsheet Date 10/28/2024 Demarco Score Blood Edema Fundus Height Fundus Units Glucose Ketones Leukocytes Nitrite Labor Signs Protein Cervic Dilation Cervic Effacement Cervic Station Type Weight in lbs Pre/Post Dialysis Refused Weight 146.006565408361 BP Diastolic BP Location Tested BP Systolic BP Type 73 L arm 115 sitting Fetus Heart Rate Present A 155 Fetus Movement Comments Doing well, pain improved, w as seen at [facility] for back pain and was diagnosed with UTI. Completed antibiotics, plan for CAITIE at 20 weeks. LR female NIPT! All other new OB labs wnl. Discussed anatomy US for next visit. RTC 4 weeks. Flowsheet Date 11/26/2024 Demarco Score Blood Edema Fundus Height Fundus Units Glucose Ketones Leukocytes Nitrite Labor Signs Protein Cervic Dilation Cervic Effacement Cervic Station Type Weight in lbs Pre/Post Dialysis Refused BP Diastolic BP Location Tested BP Systolic BP Type Fetus Heart Rate Present Fetus Movement Comments Flowsheet Date 11/26/2024 Demarco Score Blood Edema Fundus Height Fundus Units Glucose Ketones Leukocytes Nitrite Labor Signs Protein Cervic Dilation Cervic Effacement Cervic Station Type Weight in lbs Pre/Post Dialysis Refused 156.578316823527 BP Diastolic BP Location Tested BP Systolic BP Type 73 L arm 121 sitting Fetus Heart Rate Present A 153 Fetus Movement A No Comments Doing well, no cramping or b leeding. Starting to feel flutters. Anatomy complete and normal, EFW 43%. Breech, will repeat at 32 weeks. CAITIE for UTI today. RT 4 weeks. Flowsheet Date 12/24/2024 Demarco Score Blood Edema Fundus Height Fundus Units Glucose Ketones Leukocytes Nitrite Labor Signs Protein Cervic Dilation Cervic Effacement Cervic Station Type Weight in lbs Pre/Post Dialysis Refused Weight 169.284538666000 BP Diastolic BP Location Tested BP Systolic BP Type 75 L arm 118 sitting Fetus Heart Rate Present A 150 Fetus Movement A Yes Comments Doing well, baby active. No cramping or bleeding. Discussed GCT and labs for next visit. RTC 4 weeks. Flowsheet Date 01/02/2025 Demarco Score Blood Edema Fundus Height Fundus Units Glucose Ketones Leukocytes Nitrite Labor Signs Protein Cervic Dilation Cervic Effacement Cervic Station Type Weight in lbs Pre/Post Dialysis Refused Weight 167.548023136013 BP Diastolic BP Location Tested BP Systolic BP Type 79 L arm 118 sitting Fetus Heart Rate Present A 160 Fetus Movement A Yes Comments increase d/c thick white cul ture collected, urinary hesitancy +leuks send for culture tx with macrobid, +FM precautions and education Flowsheet Date 01/27/2025 Demacro Score Blood Edema Fundus Height Fundus Units Glucose Ketones Leukocytes Nitrite Labor Signs Protein Cervic Dilation Cervic Effacement Cervic Station Type Weight in lbs Pre/Post Dialysis Refused Weight 172.269721612886 BP Diastolic BP Location Tested BP Systolic BP Type 80 L arm 114 sitting Fetus Heart Rate Present Fetus Movement A Yes Comments Doing well, no issues. Yeast infection resolved. Good movement. No cramping or bleeding. GCT and labs today. Baby shower Sunday! Discussed tdap. RTC 2 weeks. Flowsheet Date 02/11/2025 Demarco Score Blood Edema Fundus Height Fundus Units Glucose Ketones Leukocytes Nitrite Labor Signs Protein Cervic Dilation Cervic Effacement Cervic Station Type Weight in lbs Pre/Post Dialysis Refused Weight 177.569208582077 BP Diastolic BP Location Tested BP Systolic BP Type 73 L arm 112 sitting Fetus Heart Rate Present A 145 Fetus Movement A Yes Comments Good movement. No cram ping or bleeding. Passed GCT, normal labs. Growth US next visit for presentation. RTC 2 weeks. Flowsheet Date 02/25/2025 Demarco Score Blood Edema Fundus Height Fundus Units Glucose Ketones Leukocytes Nitrite Labor Signs Protein Cervic Dilation Cervic Effacement Cervic Station Type Weight in lbs Pre/Post Dialysis Refused BP Diastolic BP Location Tested BP Systolic BP Type Fetus Heart Rate Present Fetus Movement Comments Flowsheet Date 02/25/2025 Demarco Score Blood Edema Fundus Height Fundus Units Glucose Ketones Leukocytes Nitrite Labor Signs Protein Cervic Dilation Cervic Effacement Cervic Station Type Weight in lbs Pre/Post Dialysis Refused 181.742492219719 BP Diastolic BP Location Tested BP Systolic BP Type 75 L arm 121 sitting Fetus Heart Rate Present A Present Fetus Movement A Yes Comments Doing well, good movem ent. No cramping or bleeding. Having some BH contractions. EFW 43%, vertex! Discussed preadmission. Received Tdap. RTC 2 weeks. Flowsheet Date 03/11/2025 Demarco Score Blood Edema Fundus Height Fundus Units Glucose Ketones Leukocytes Nitrite Labor Signs Protein Cervic Dilation Cervic Effacement Cervic Station Type Weight in lbs Pre/Post Dialysis Refused Weight 183.511052991293 BP Diastolic BP Location Tested BP Systolic BP Type 86 L arm 126 sitting Fetus Heart Rate Present A 155 Fetus Movement A Yes Comments Had UTI and back pain, treat ed at L&D and now feeling better. Good movement. No cramping or bleeding. Preadmission scheduled. Desires spontaneous labor. Discussed GBS for next visit. RTC 1 week. Flowsheet Date 03/20/2025 Demarco Score Blood Edema Fundus Height Fundus Units Glucose Ketones Leukocytes Nitrite Labor Signs Protein Cervic Dilation Cervic Effacement Cervic Station 0cm 50% -2 Type Weight in lbs Pre/Post Dialysis Refused Weight 187.385216575574 BP Diastolic BP Location Tested BP Systolic BP Type 79 L arm 129 sitting Fetus Heart Rate Present A 150 Fetus Movement A Yes Comments Doing well, good movem ent. No cramping or bleeding. SVE 0.5cm. GBS collected. RTC 1 week. Menstrual History Last Menstrual Date Menses Monthly [...]
--- OUTSIDE RECORDS SUMMARY | 2025-03-22 17:54 | XMS_ITS | Continuity of Care Document ---
Author Organization [facility], [facility], [place] Address [address] [place] [address] [place] [address] Assessment No assessment recorded. Plan of Treatment Reminders Order Date Submit Date Provider Last Modified By Organization Details Last Modified Time Details Appointments OB ROUTINE 2025 11:45A Radha SINGLETON MD Not available Not available Not available OB ROUTINE 2025 11:00A Radha RAMAN MD Not available Not available Not available OB ROUTINE 2025 10:45A Radha RAMAN MD Not available Not available Not available Lab None recorded . Referral None recorded . Procedures None recorded . Surgeries None recorded . Imaging US, obstetri c, follow-u p 2024 025 [id number] [place] [facility] [address], [address], [place], [address], 02/27/2025 11:02:29 Medication Orders None recorded . Patient TargetsNo targets recorded. Patient InstructionsNo instructions recorded. Reason for Referral None Reported. Results Created Date Observation Date Name Description Value Unit Range Abnormal Flag Note LastModifiedBy Organization Detail LastModifiedTime 10/07/1910/06/2024 [UNIT Y] ANEUP LOIDY NIPT fraction 8.1% normal Not Available Liana wynn [address], [place], [address], 10/06/2024 23:31:19 10/07/19 25 10/06/2024 [UNIT Y] ANEUP LOIDY NIPT 22Q11.2 microdeletio n LOW RISK <1 in 10,000 normal Not Available Jono wright [address], [place], [address], 10/06/2024 23:31:19 10/07/19 25 10/06/2024 [UNIT Y] ANEUP LOIDY NIPT sex chromosome aneuploidy NOT DETECT ED normal Not Available [facility] [address], [place], [address], 10/06/2024 23:31:19 10/07/19 25 10/06/2024 [UNIT Y] ANEUP LOIDY NIPT monosomy X LOW RISK <1 in 10,000 normal Not Available [facility] [address], [place], [address], 10/06/2024 23:31:19 10/07/19 25 10/06/2024 [UNIT Y] ANEUP LOIDY NIPT trisomy 13 LOW RISK <1 in 10,000 normal Not Available [facility] [address], [place], [address], 10/06/2024 23:31:19 10/07/19 25 10/06/2024 [UNIT Y] ANEUP LOIDY NIPT trisomy 18 LOW RISK <1 in 10,000 normal Not Available [facility] [address], [place], [address], 10/06/2024 23:31:19 10/07/19 25 10/06/2024 [UNIT Y] ANEUP LOIDY NIPT trisomy 21 LOW RISK <1 in 10,000 normal Not Available [facility] [address], [place], [address], 10/06/2024 23:31:19 10/07/19 25 10/06/2024 [UNIT Y] ANEUP LOIDY NIPT sex FEMALE normal Not Available [facility] [address], [place], [address], 10/06/2024 23:31:19 10/07/19 25 10/06/2024 [UNIT Y] ANEUP LOIDY NIPT gestation SINGLE TON normal Not Available [facility] [address], [place], [address], 10/06/2024 23:31:19 10/07/19 25 10/06/2024 [UNIT Y] ANEUP LOIDY NIPT for detailed report, see pdf See PDF normal Not Available [facility] [address], [place], [address], 10/06/2024 23:31:19 10/13/19 25 10/12/2024 [UNIT Y] JENIFER Parra sickle cell disease/beta -thalassemia /hemoglobino pathies carrier screen NEGATI VE normal Not Available [facility] [address], [place], [address], 10/12/2024 10:46:31 10/13/19 25 10/12/2024 [UNIT Y] JENIFER Parra alpha-thalas semia carrier screen NEGATI VE normal Not Available [facility] [address], [place], [address], 10/12/2024 10:46:31 10/13/19 25 10/12/2024 [UNIT Y] JENIFER Parra cystic fibrosis carrier screen NEGATI VE normal Not Available [facility] [address], [place], [address], 10/12/2024 10:46:31 10/13/19 25 10/12/2024 [UNIT Y] JENIFER Parra spinal muscular atrophy carrier screen NEGATI VE 2 SMN1 copies , SNP not presen t normal Not Available [facility] [address], [place], [address], 10/12/2024 10:46:31 10/13/19 25 10/12/2024 [UNIT Y] JENIFER Parra for detailed report, see pdf See PDF normal Not Available [facility] [address], [place], [address], 10/12/2024 10:46:31 10/01/19 25 09/30/2024 CBC W/DIF F WBC 5.6 10'3/ uL 3.5-10 .5 Not Available [facility] (Lab) [address], [place], [address], 10/01/2024 11:38:09 10/01/19 25 09/30/2024 CBC W/DIF F RBC 3.95 10'6/ uL (based on docume nted legal sex) 3.80-5 .20 Not Available [facility] (Lab) [address], [place], [address], 10/01/2024 11:38:09 10/01/19 25 09/30/2024 CBC W/DIF F HGB 12.5 g/dL (based on docume nted legal sex) 11.6-1 5.4 Not Available [facility] (Lab) [address], [place], [address], 10/01/2024 11:38:09 10/01/19 25 09/30/2024 CBC W/DIF F HCT 37.1 % (based on docume nted legal sex) 34.0-4 5.0 Not Available [facility] (Lab) [address], [place], [address], 10/01/2024 11:38:09 10/01/19 25 09/30/2024 CBC W/DIF F MCV 93.9 fL 80.0-9 9.0 Not Available [facility] (Lab) [address], [place], [address], 10/01/2024 11:38:10/01/19 25 09/30/2024 CBC W/DIF F MCH 31.6 pg 27.0-3 4.0 Not Available [facility] (Lab) [address], [place], [address], 10/01/2024 11:38:09 10/01/19 25 09/30/2024 CBC W/DIF F MCHC 33.7 g/dL 32.0-3 5.5 Not Available [facility] (Lab) [address], [place], [address], 10/01/2024 11:38:09 10/01/19 25 09/30/2024 CBC W/DIF F RDW 12.8 % 11.0-1 5.0 Not Available [facility] (Lab) [address], [place], [address], 10/01/2024 11:38:09 10/01/19 25 09/30/2024 CBC W/DIF F plt 198 10'3/ uL 150-40 0 Not Available [facility] (Lab) [address], [place], [address], 10/01/2024 11:38:09 10/01/19 25 09/30/2024 CBC W/DIF F MPV 10.8 fL 8.8-12 .1 Not Available [facility] (Lab) [address], [place], [address], 10/01/2024 11:38:09 10/01/19 25 09/30/2024 CBC W/DIF F NRBC's 0.0 % 0.0 Not Available [facility] (Lab) [address], [place], [address], 10/01/2024 11:38:09 10/01/19 25 09/30/2024 CBC W/DIF F absolute NRBCs 0.0 10'3/ uL no refere nce range establ ished Not Available [facility] (Lab) [address], [place], [address], 10/01/2024 11:38:09 10/01/1909/30/2024 CBC W/DIF F neutrophils 73.5 % 34.0-7 3.0 high Not Available [facility] (Lab) [address], [place], [address], 10/01/2024 11:38:09 10/01/19 25 09/30/2024 CBC W/DIF F lymphocytes 18.1 % 15.0-5 0.0 Not Available [facility] (Lab) [address] [facility], [place], [address], 10/01/2024 11:38:09 10/01/19 25 09/30/2024 CBC W/DIF F monocytes 6.4 % 1.0-15 .0 Not Available [facility] (Lab) [address] [facility], [place], [address], 10/01/2024 11:38:09 10/01/19 25 09/30/2024 CBC W/DIF F eosinophils 1.2 % 0.0-8. 0 Not Available [facility] (Lab) [address] [facility], [place], [address], 10/01/2024 11:38:09 10/01/19 25 09/30/2024 CBC W/DIF F basophils 0.4 % 0.0-2. 0 Not Available [facility] (Lab) [address] [facility], [place], [address], 10/01/2024 11:38:09 10/01/19 25 09/30/2024 CBC W/DIF [...] separ ately if prese nt. Not Available [facility] (Lab) [address] [facility], [place], [address], 10/01/2024 11:38:09 10/01/19 25 09/30/2024 CBC W/DIF F absolute neutrophils 4.1 10'3/ uL 1.5-8. 0 Not Available [facility] (Lab) [address] [facility], [place], [address], 10/01/2024 11:38:09 10/01/19 25 09/30/2024 CBC W/DIF F absolute lymphocytes 1.0 10'3/ uL 1.0-4. 0 Not Available [facility] (Lab) [address] [facility], [place], [address], 10/01/2024 11:38:10/01/19 25 09/30/2024 CBC W/DIF F absolute monocytes 0.4 10'3/ uL 0.2-1. 0 Not Available [facility] (Lab) [address] [facility], [place], [address], 10/01/2024 11:38:09 10/01/19 25 09/30/2024 CBC W/DIF F absolute eosinophils 0.1 10'3/ uL 0.0-0. 6 Not Available [facility] (Lab) [address] [facility], [place], [address], 10/01/2024 11:38:09 10/01/19 25 09/30/2024 CBC W/DIF F absolute basophils 0.0 10'3/ uL 0.0-0. 3 Not Available [facility] (Lab) [address] [facility], [place], [address], 10/01/2024 11:38:09 10/01/19 25 09/30/2024 CBC W/DIF F absolute immature granulocytes 0.0 10'3/ uL 0.00-0 .10 Refer ence range s for nonbi nary/ inter sex or unspe cifie d gende r patie nts have not been estab lishe d. Pleas e refer to the angelinao wing table for range s estab lishe d for cisge nder patie nts and evalu ate in the clini jasmeet marivel xt of the indiv idual patie nt: https :[email or web address] scott book. nm.or g/gen derx Not Available [facility] (Lab) [address] [facility], [place], [address], 10/01/2024 11:38:09 10/01/1909/30/2024 HEPAT ITIS B SURFA CE ANTIG EN hepatitis B surface antigen Non-re active non-re active This assay was perfo rmed using [employer] ratio n reage nts and test kits. Value s obtai tacho with other assay metho ds or kits canno t be used inter cronin eably . Not Available [facility] (Lab) [address] [facility], [place], [address], 10/01/2024 11:38:10 10/01/19 25 09/30/2024 HIV 1/2 ANTIG EN/AN TIBOD Y, REFLE X CONFI RMATI ON HIV antigen/anti body Nonrea ctive nonrea ctive HIV-1 antig en and HIV-1 /HIV- 2 antib odies were not detec manisha. No labor atory evide nce of HIV infec tion. Not Available [facility] (Lab) [address] [facility], [place], [address], 10/01/2024 11:38:10 10/01/19 25 09/30/2024 HEPAT ITIS C ANTIB ALISHA SCREE N, REFLE X TO CONFI RMATI ON hepatitis C antibody Non-re active non-re active Antib odies to HCV Not Detec manisha, does not exclu de the possi bilit y of expos ure to HCV. Not Available [facility] (Lab) [address], [place], [address], 10/01/2024 11:38:11 10/01/1909/30/2024 RUBEL LA IGG ANTIB ALISHA, QUANT rubella antibodies, IgG Reacti ve reacti ve Not Available [facility] (Lab) [address] [place], [address], 10/01/2024 11:38:11 10/01/19 25 09/30/2024 RUBEL LA IGG ANTIB ALISHA, QUANT rubella antibodies, IgG quant 12.5 IU/mL >=10 Non-r eacti ve (Non- Immun e) <10 IU/mL React adina (Immu ne) > or = 10 IU/mL Not Available [facility] (Lab) [address] [facility], [place], [address], 10/01/2024 11:38:11 10/01/19 25 09/30/2024 TYPE/ RH/SC REEN ABO/Rh type A POS Not Available [facility] (Lab) [address] [facility], [place], [address], 10/01/2024 11:38:12 10/01/19 25 09/30/2024 TYPE/ RH/SC REEN antibody screen NEG Not Available [facility] (Lab) [address] [facility], [place], [address], 10/01/2024 11:38:12 10/01/19 25 09/30/2024 TYPE/ RH/SC REEN exp date 2024 23:59 Not Available [facility] (Lab) [address] [facility], [place], [address], 10/01/2024 11:38:12 10/01/1909/30/2024 HEMOG LOBIN A1C hemoglobin A1C 4.9 % 4.0-5. 6 The Ameri can Diabe bud [employer] iatio n recom mends that a prima ry goal of thera py nancy simms be a HBA1C of < 7% and that physi cians shocole d reeva luate the treat ment regim en in patie nts with HBA1C value s consi stent ly > 8%. <5.7% Swati l 5.7 - 6.4% Incre ased risk for diabe bud >=6.5 % Diagn ostic of diabe bud <7.0% Goal of thera py >8.0% Actio n sugge sted Not Available [facility] (Lab) [address] [facility], [place], [address], 10/01/2024 11:38:13 10/01/19 25 09/30/2024 RPR SCREE N, REFLE X TITER /CONF IRMAT ION RPR qualitative Nonrea ctive nonrea ctive Not Available [facility] (Lab) [address] [facility], [place], [address], 10/01/2024 11:38:13 10/01/19 25 09/30/2024 CULTU RE: URINE result report SEE RESULT S BELOW Test: Cultu re: Urine Speci men Sourc e: Urine Voide d Speci men Type: Urine Speci men Date: 025 1011 Resul t Date: 2024 0559 Resul t Statu s: Final resul t Abnor mal: No Resul ting Lab: [facility] [address] [facility] [address] Tel: CULTU RE ----- ----- ----- --- No growt h in 1 day (dete ction level of 10,00 0 colon ies / ml.) Not Available [facility] (Lab) [address] [facility], [place], [address], 10/02/2024 07:03:32 10/01/19 25 09/30/2024 drug scree n, urine Amphetamines : negati ve Not Available [place] [address], [place], [address], 09/30/2024 10:52:38 10/01/19 25 09/30/2024 drug scree n, urine Cannabinoids : positi ve Not Available [place] [address], [place], [address], 09/30/2024 10:52:38 10/01/19 25 09/30/2024 drug scree n, urine Cocaine: negati ve Not Available [place] [address], [place], [address], 09/30/2024 10:52:38 10/01/19 25 09/30/2024 drug scree n, urine Opiates: negati ve Not Available [place] [address], [place], [address], 09/30/2024 10:52:38 10/01/19 25 09/30/2024 drug scree n, urine Phenocyclidi ne: negati ve Not Available [place] [address], [place], [address], 09/30/2024 10:52:38 10/01/19 25 09/30/2024 drug scree n, urine Barbiturates : negati ve Not Available [place] [address], [place], [address], 09/30/2024 10:52:38 10/01/19 25 09/30/2024 drug scree n, urine Benzodiazepi carla: negati ve Not Available [place] [address], [place], [address], 09/30/2024 10:52:38 10/01/19 25 09/30/2024 drug scree n, urine Ethanol: negati ve Not Available [place] [address], [place], [address], 09/30/2024 10:52:38 10/01/19 25 09/30/2024 drug scree n, urine Hallucinogen s: negati ve Not Available [place] [address], [place], [address], 09/30/2024 10:52:38 10/01/19 25 09/30/2024 drug scree n, urine Inhalants: negati ve Not Available [place] [address], [place], [address], 09/30/2024 10:52:38 10/01/19 25 09/30/2024 drug scree n, urine Anabolic Steroids: negati ve Not Available [place] [address], [place], [address], 09/30/2024 10:52:38 11/27/19 25 11/26/2024 CULTU RE: URINE result report SEE RESULT S BELOW Test: Cultu re: Urine Speci men Sourc e: Urine Voide d Speci men Type: Urine Speci men Date: 1312 Resul t Date: 7 Resul t Statu s: Final resul t Abnor mal: No Resul ting Lab: [facility] [address] [facility] [address] Tel: CULTU RE ----- ----- ----- --- No growt h in 1 day (dete ction level of 10,00 0 colon ies / ml.) Not Available [facility] (Lab) [address] [facility], [place], [address], 11/28/2024 13:32:03 11/27/19 25 11/26/2024 CT/GC AND TRICH OMONA S VAGIN WINSTON (RRNA ), URINE chlamydia trachomatis, PCR Negati ve negati ve Not Available [facility] (Lab) [address] [facility], [place], [address], 11/28/2024 13:32:04 11/27/19 25 11/26/2024 CT/GC AND TRICH OMONA S VAGIN WINSTON (RRNA ), URINE neisseria gonorrhoeae, PCR Negati ve negati ve Not Available [facility] (Lab) [address] [facility], [place], [address], 11/28/2024 13:32:04 11/27/19 25 11/26/2024 CT/GC AND TRICH OMONA S VAGIN WINSTON (RRNA ), URINE trichomonas vaginalis ribosomal RNA (rrna) Negati ve negati ve Not Available [facility] (Lab) [address] [place], [address], 11/28/2024 13:32:04 01/03/20 25 01/02/2025 CULTU RE: URINE result report SEE RESULT S BELOW Test: Cultu re: Urine Speci men Sourc e: Urine - Clean Catch Speci men Type: Urine Speci men Date: 01/02 1101 Resul t Date: 01/04 0616 Resul t Statu s: Final resul t Abnor mal: No Resul ting Lab: [facility] [address] [facility] [address] Tel: CULTU RE ----- ----- ----- --- Cultu re resul t (>=3 organ isms prese nt) indic ates possi ble conta minat ion. Repea t cultu re if sympt oms indic ate. Not Available [facility] (Lab) [address] [place], [address], 01/04/2025 07:17:57 01/03/2001/02/2025 WOMEN 'S HEALT H [...] or negat adina statu s. Not Available [facility] (Lab) [address] [place], [address], 01/05/2025 08:57:21 01/03/2001/02/2025 WOMEN 'S HEALT H SWAB, LUIS MANUEL jeanmarie species, tma Positi ve negati ve abnormal Not Available [facility] (Lab) [address] [place], [address], 01/05/2025 08:57:21 01/03/2001/02/2025 WOMEN 'S HEALT H SWAB, LUIS MANUEL jeanmarie glabrata, tma Negati ve negati ve Not Available [facility] (Lab) [address] [facility], [place], [address], 01/05/2025 08:57:21 01/03/20 25 01/02/2025 WOMEN 'S HEALT H SWAB, LUIS MANUEL trichomonas vaginalis, tma Negati ve negati ve This assay tests for and diffe renti ates betwe en Alyson da glabr steff, the Alyson da speci es group (C. albic ans, C. tropi calis , C. parap juan a is, C. dubli niens is), and Trich omona s vagin [place] by Trans cript ion-M ediat ed Ampli ficat ion (TMA) . Not Available [facility] (Lab) [address] [facility], [place], [address], 01/05/2025 08:57:21 01/03/2001/02/2025 urina lysis , dipst ick Leukocytes trace Not Available [facility] [address], [place], [address], 01/02/2025 11:23:03 01/03/2001/02/2025 urina lysis , dipst ick Nitrite neg Not Available [place] [address], [place], [address], 01/02/2025 11:23:03 01/03/20 25 01/02/2025 urina lysis , dipst ick Urobilinogen norm Not Available [facility] petros [address], [place], [address], 01/02/2025 11:23:03 01/03/20 25 01/02/2025 urina lysis , dipst ick Protein trace Not Available [place] [address], [place], [address], 01/02/2025 11:23:03 01/03/20 25 01/02/2025 urina lysis , dipst ick pH 7 Not Available [place] [address], [place], [address], 01/02/2025 11:23:03 01/03/2001/02/2025 urina lysis , dipst ick Blood ++ Not Available [place] [address], [place], [address], 01/02/2025 11:23:03 01/03/2001/02/2025 urina lysis , dipst ick Specific [place] 1.070 [facility] Available [facility] [address], [place], [address], 01/02/2025 11:23:03 01/03/2001/02/2025 urina lysis , dipst ick Ketone trace Not Available [place] [address], [place], [address], 01/02/2025 11:23:03 01/03/2001/02/2025 urina lysis , dipst ick Bilirubin + Not Available [facility] [address], [place], [address], 01/02/2025 11:23:03 01/03/2001/02/2025 urina lysis , dipst ick Glucose neg Not Available [place] [address], [place], [address], 01/02/2025 11:23:03 01/03/2001/02/2025 urina lysis , dipst ick Appearance clear Not Available Tian[facility] pear[facility] [address], [place], [address], 01/02/2025 11:23:03 01/03/2001/02/2025 urina lysis , dipst ick Color yellow Not Available [place] [address] [place], [address], 01/02/2025 11:23:03 01/28/20 25 01/27/2025 HEMOG LOBIN (HGB) HGB 12.0 g/dL (based on docume nted legal sex) 11.6-1 5.4 Not Available [facility] (Lab) [address] [facility], [place], [address], 01/28/2025 12:35:48 01/28/20 25 01/27/2025 HEMAT OCRIT (HCT) HCT 35.8 % (based on docume nted legal sex) 34.0-4 5.0 Not Available [facility] (Lab) [address] [facility], [place], [address], 01/28/2025 12:35:48 01/28/20 25 01/27/2025 GTT - GESTA OBEY L JOE Parra, ACOG OB glucose, 1 hour screen 105 mg/dL 70-135 Not Available [facility] (Lab) [address] [facility], [place], [address], 01/28/2025 12:35:49 01/28/20 25 01/27/2025 HIV 1/2 ANTIG EN/AN TIBOD Y, REFLE X CONFI RMATI ON HIV antigen/anti body Nonrea ctive nonrea ctive HIV-1 antig en and HIV-1 /HIV- 2 antib odies were not detec manisha. No labor atory evide nce of HIV infec tion. Not Available [facility] (Lab) [address] [facility], [place], [address], 01/28/2025 12:35:49 01/28/20 25 01/27/2025 RPR SCREE N, REFLE X TITER /CONF IRMAT ION RPR qualitative Nonrea ctive nonrea ctive Not Available [facility] (Lab) [address] [place], [address], 01/28/2025 12:35:50 10/01/19 25 09/30/2024 US, obste tric, nucha l trans lucen cy No observ ation record ed. [email or web address] [place] [address], [place], [address], 09/30/2024 13:22:32 10/01/19 25 09/30/2024 US, obste tric, nucha l trans lucen cy No observ ation record ed. [email or web address] [place] [address], [place], [address], 10/03/2024 17:35:49 11/27/19 25 11/26/2024 US, obste tric, 2nd or 3rd trime ster No observ ation record ed. [email or web address] [place] [address], [place], [address], 11/26/2024 18:48:44 11/27/19 25 11/26/2024 US, obste tric, 2nd or 3rd trime ster No observ ation record ed. RODRIGO [place] [address], [place], [address], 11/26/2024 20:56:33 11/27/19 25 11/26/2024 US, obste tric, 2nd or 3rd trime ster No observ ation record ed. RODRIGO [place] [address], [place], [address], 11/26/2024 20:56:34 02/26/20 25 02/25/2025 US, obste tric, follo w-up No observ ation record ed. [facility] [address], [place], [address], 02/25/2025 13:29:09 02/26/20 25 02/25/2025 US, obste tric, follo w-up No observ ation record ed. RODRIGO [place] [address], [place], [address], 02/28/2025 16:38:30 03/02/20 25 03/01/2025 imagi ng/di abhilashos tic resul t No observ ation record ed. [facility] [address], [place], [address], 03/02/2025 16:17:21 Result Notes None recorded. Problems Name Problem SNOMED Code Status Onset Date Resolution Date Notes Provider Name and Address Organization Details Recorded Time [id number] Active 025 Natalia Villanueva [facility], [facility] 10:12:39 Acute cystitis 77733788 Active 025 CAITIE at 20 weeks BONITA RAMAN MD [address], [place], [address], [facility] 12:45:20 Problem Notes None recorded. Medical Equipment [...] Body weight Body mass index (BMI) Body height Systolic And Diastolic Provider Name and Address Organization Details Last Updated DateTime 02/25/2025 65508.218 97 g 29.2 kg/m2 167.64 cm 121/75 mm[Hg] Lilly Michelle [facility] 02/25/2025 10:50:14 Social History Question Answer Notes LastModified by Organizat ion Details LastModified Time Tobacco Smoking Status Never Smoker MANINDER Rogel alvaro, [facility] 09/02/2024 17:29:38 Do You Have An Advance Directive? No [email or web address] Information n ot available 09/02/2024 If You Are , What Was Your Level Of Alcohol Consumption Prior To ? None [email or web address] Information not available 09/02/2024 Are You Blind Or Do You Have Difficulty Seeing? No [email or web address] Information n ot available 09/02/2024 What Is Your Level Of Caffeine Consumption? None [email or web address] Information not available 09/02/2024 In The 14 Days Before Symptom Onset, Have You Had Close Contact With A Laboratory-confirm ed COVID-19 While That Case Was Ill? No [email or web address] Information n ot available 09/02/2024 In The 14 Days Before Symptom Onset, Have You Had Close Contact With A Person Who Is Under Investigation For COVID-19 While That Person Was Ill? No Information not available 09/02/2024 Have You Been To An Area Known To Be High Risk For COVID-19? No [email or web address] Information not available 09/02/2024 Are You Deaf Or Do You Have Serious Difficulty Hearing? No Information not available 09/02/2024 What Type Of Diet Are You Following? REGULAR [email or web address] Information n ot available 09/02/2024 What Is The Highest Grade Or Level Of School You Have Completed Or The Highest Degree You Have Received? [id number] [email or web address] Information not available 09/02/2024 Are There Any Guns Present In Your Home? No [email or web address] Information not available 09/02/2024 Do You Use Your Seat Belt Or Car Seat Routinely? Yes [email or web address] Information not available 09/02/2024 Are You Sexually Active? Yes [email or web address] Information not available 09/02/2024 Do You Have Smoke And Carbon Monoxide Detectors In Your Home? Yes Information not available 09/02/2024 Do You Use Sunscreen Routinely? Yes [email or web address] Information not available 09/02/2024 Has Tobacco Cessation Counseling Been Provided? No Information not available 09/02/2024 Do You Have Difficulty Walking Or Climbing Stairs? No [email or web address] Information not available 09/02/2024 How Many Years Have You Used E-cigarettes Or Vape? 3 [email or web address] Information not available 09/02/2024 Sex: Unknown Functional Status Question Answer Note LastModified by [employer] ion Details LastModified Time Do you use any illicit or recreational drugs? No [email or web address] Information not available 09/02/2024 Do you or have you ever used any other forms of tobacco or nicotine? Yes [email or web address] Information not available 09/02/2024 What is your level of alcohol consumption? None [email or web address] Information not available 09/02/2024 Do you or have you ever used smokeless tobacco? Never used [email or web address] tobacco Information not available 09/02/2024 Are you currently employed? No [email or web address] Information not available 09/02/2024 Are you able to walk independently without assistance or assistive devices? YESWOREST [email or web address] Information not available 09/02/2024 Are you able to care for yourself independently? Yes Information not available 09/02/2024 Do you have difficulty dressing, bathing, grooming, or toileting? Yes [email or web address] Information not available 09/02/2024 Do you or have you ever used e-cigarettes or vape? Current user of electronic cigarettes [email or web address] Information not available 09/02/2024 What is your exercise level? None [email or web address] Information not available 09/02/2024 Mental Status Question Answer Note LastModified by Organization [employer] LastModified Time Do you feel stressed (tense, restless, nervous, or anxious, or unable to sleep at night)? [id number] [email or web address] Information not available 09/02/2024 Family History Relationship Description Onset Age of this Age Resolved Age Notes LastModified by Organization Details LastModified Time Mother Malignant neoplasm of breast Not available 2024 17:29:18 Maternal Grandmother Malignant neoplasm of lung [email or web address] Not available 2024 17:29:27 Medical History Condition Response Allergies (Food, seasonal, environmental ) N Other N Breast Cancer N Drug/Latex Allergies/Reactions N Blood Transfusion N Dermatologic Disorders N Lung Disease N Defects or Inherited Disease N Breast Problem N Gestational Diabetes N Hematologic disorders N Anesthesia Complications N History of STI N Deep Vein Thrombosis N Polycystic ovary syndrome N Anxiety Disorder N Autoimmune disease N Arthritis N Infertility N Polyps N Acid Reflux (GERD) N History of abnormal pap N Cancer N Stroke N Varicosities N Neurologic/Epilepsy N Endometriosis N High Cholesterol [...] ICD10 Code Diagnosis IMO Codes Diagnosis Note [id number] MD Carl MARK [address] [address] 01/27/2025 10:28:49 01/27/2025 11:31:59 care status [id number] Z34.83 [id number] - continue PNV [id number] MD Carl MARK [address] [place] [address] 02/11/2025 11:38:35 02/11/2025 12:12:44 Breech presentation [id number] O32.1XX0 [id number] - repeat growth/pre sentation US next visit Gestation period, 31 weeks 15231228 Z3A.31 [id number] - continue PNV [id number] BONITA RAMAN MD [place] [address] [address] 02/25/2025 10:07:29 02/25/2025 10:48:49 Observational assessment [id number] Z03.74 Z3A.33 [id number] BONITA RAMAN MD [place] [address] [address] 02/25/2025 10:09:01 02/25/2025 10:59:28 care status [id number] Z34.83 [id number] - continue PNV Health Concerns Section Related Observation LastModified by Organization Detai ls LastModified Time None Recorded Concern Status LastModified by Organization Details LastModified Time None Recorded Payers Encounter Date Sequence Insurance Name Policy Number Policy Snowden Covered Member ID Snowden Member ID Guarantor Name 02/25/2025 1 [facility] (MEDICAID HMO) [id number] Opal Spear [id number] Opal Spear Notes Date Note Type Note Provider Name and Address Organization Details Recorded Time 02/25/2025 text/html Generic HPI TemplateReported by Patient BONITA RAMAN MD [address], [place], [address], [facility] 02/25/2025 10:58:08 OBGyn Episode Ob Episode Information Episode Created Date Number of Fetuses Patient Bloodtype Patient rh Status Prepregnancy Weight lbs Domestic Partner Domestic Partner Phone Father Name Cold Meat Cook Status 10/01/19 25 1 A Positive 137 Akash vann OPEN Fetus Data First Name Last Name Admitted to NICU Weight (g) Sex Living Outcome Pediatric Complications Fetus ID Race Codes Race Delivery Type [id number] Problems Problem Notes Problem Name Start Date End Date Resolution Snomed Code Not e Acute cystitis 11/26/2024 [id number] CAITIE at 20 weeks Wale Calculation Initial Wale Date Initial Exam Date Initial Exam Provider Initial Ultrasound Date Last Menstrual Period Date Ultra Sound Weeks Gestation 04/15/2025 09/30/2024 09/02/202407/01/2024 7 Eighteen To Twenty Week Awle Update Ultra Sound Date Fundal Height At Umbil Quickening Date Ultra Sound Latest Weeks Gestation Final Wale Confirmed By Final Wale Confirmed Date Final Wale Date Ultra Sound Latest Days Gestation 11/27/19 25 19 [email or web address] 09/30/2024 04/15/19 26 4 Pre- Flowsheet Flowsheet Date 09/30/2024 Demarco Score Blood Edema Fundus Height Fundus Units Glucose Ketones Leukocytes Nitrite Labor Signs Protein Cervic Dilation Cervic Effacement Cervic Station Type Weight in lbs Pre/Post Dialysis Refused Weight 138.518097053750 BP Diastolic BP Location Tested BP Systolic BP Type 80 L arm 127 sitting Fetus Heart Rate Present A 164 Fetus Movement Comments Patient presents to [facility] care. otherwise uncomplicated. No nausea or cramping. NT/NB wnl today, desires NIPT. Will draw today with new OB labs. RTC 4 weeks for routine care. Flowsheet Date 10/28/2024 Demarco Score Blood Edema Fundus Height Fundus Units Glucose Ketones Leukocytes Nitrite Labor Signs Protein Cervic Dilation Cervic Effacement Cervic Station Type Weight in lbs Pre/Post Dialysis Refused Weight 146.578469481257 BP Diastolic BP Location Tested BP Systolic BP Type 73 L arm 115 sitting Fetus Heart Rate Present A 155 Fetus Movement Comments Doing well, pain improved, w as seen at [place] for back pain and was diagnosed with [...] Type Weight in lbs Pre/Post Dialysis Refused 156.815318706658 BP Diastolic BP Location Tested BP Systolic [...] Weight in lbs Pre/Post Dialysis Refused Weight 169.117702773916 BP Diastolic BP Location Tested BP Systolic [...] Weight in lbs Pre/Post Dialysis Refused Weight 167.158421090630 BP Diastolic BP Location Tested BP Systolic BP Type 79 L arm 118 sitting Fetus Heart Rate Present A 160 Fetus Movement A Yes Comments increase d/c thick white cul ture collected, urinary hesitancy +leuks send for culture tx with macrobid, +FM precautions and education Flowsheet Date 01/27/2025 Demarco Score Blood Edema Fundus Height Fundus Units Glucose Ketones Leukocytes Nitrite Labor Signs Protein Cervic Dilation Cervic Effacement Cervic Station Type Weight in lbs Pre/Post Dialysis Refused Weight 172.455970762135 BP Diastolic BP Location Tested BP Systolic [...] Weight in lbs Pre/Post Dialysis Refused Weight 177.589209459242 BP Diastolic BP Location Tested BP Systolic [...] Type Weight in lbs Pre/Post Dialysis Refused 181.254394334909 BP Diastolic BP Location Tested BP Systolic [...] Weight in lbs Pre/Post Dialysis Refused Weight 183.275306284075 BP Diastolic BP Location Tested BP Systolic [...] Weight in lbs Pre/Post Dialysis Refused Weight 187.952856771856 BP Diastolic BP Location Tested BP Systolic [...]
--- OUTSIDE RECORDS SUMMARY | 2025-03-22 17:54 | XMS_ITS | Continuity of Care Document ---
Author Organization [facility] Address [address] [place] [address] Assessment No assessment recorded. Plan of Treatment Reminders Order Date Submit Date Provider Last Modified By Organization Details Last Modified Time Details Appointments OB ROUTINE 2025 11:45A Radha FRANKLIN MD Not available Not available Not available OB ROUTINE 2025 11:00A Radha RAMAN MD Not available Not available Not available OB ROUTINE 2025 10:45A Radha RAMAN MD Not available Not available Not available Lab RPR (rapid plasma reagin), serum [address] (Lab), [address], [place], [address], 01/06/2025 18:47:19 glucose tolerance test, gestation al panel 2024 025 [facility] (Lab), [address], [place], [address], 01/28/2025 12:35:49 hematocri t, blood 2024 025 [facility] (Lab), [address], [place], [address], 01/28/2025 12:35:49 hemoglobi n (Hb), blood 2024 025 [facility] (Lab), [address], [place], [address], 01/28/2025 12:35:48 HIV 1+2 AB + HIV 1 p24 Ag, qualitati ve immunoass ay, serum 2024 025 [facility] (Lab), [address], [place], [address], 01/28/2025 12:35:49 Referral None recorded. Procedures None recorded. Surgeries None recorded. Imaging None recorded. Medication Orders None recorded. Patient TargetsNo targets recorded. Patient InstructionsNo instructions recorded. Reason for Referral None Reported. Results Created Date Observation Date Name Description Value Unit Range Abnormal Flag Note LastModifiedBy Organization Detail LastModifiedTime 10/07/1910/06/2024 [UNIT Y] ANEUP LOIDY NIPT fraction 8.1% normal Not Available [facility] [address], [place], [address], 10/06/2024 23:31:19 10/07/19 25 10/06/2024 [UNIT Y] ANEUP LOIDY NIPT 22Q11.2 microdeletio n LOW RISK <1 in 10,000 normal Not Available [facility] [address], [place], [address], 10/06/2024 23:31:19 10/07/19 25 10/06/2024 [UNIT Y] ANEUP LOIDY NIPT sex chromosome aneuploidy NOT DETECT ED normal Not Available [facility] [address], [place], [address], 10/06/2024 23:31:19 10/07/19 25 10/06/2024 [UNIT Y] ANEUP LOIDY NIPT monosomy X LOW RISK <1 in 10,000 normal Not Available [facility] [address], [place], [address], 10/06/2024 23:31:19 10/07/19 25 10/06/2024 [UNIT Y] ANEUP LOIDY NIPT trisomy 13 LOW RISK <1 in 10,000 normal Not Available [facility] [address], [place], [address], 10/06/2024 23:31:19 10/07/19 25 10/06/2024 [UNIT Y] ANEUP LOIDY NIPT trisomy 18 LOW RISK <1 in 10,000 normal Not Available [facility] [address], [place], [address], 10/06/2024 23:31:19 10/07/19 25 10/06/2024 [UNIT Y] ANEUP LOIDY NIPT trisomy 21 LOW RISK <1 in 10,000 normal Not Available [facility] [address], [place], [address], 10/06/2024 23:31:19 10/07/19 25 10/06/2024 [UNIT Y] ANEUP LOIDY NIPT sex FEMALE normal Not Available [facility] [address], [place], [address], 10/06/2024 23:31:19 10/07/19 25 10/06/2024 [UNIT Y] ANEUP LOIDY NIPT gestation SINGLE TON normal Not Available [facility] [address], [place], [address], 10/06/2024 23:31:19 10/07/19 25 10/06/2024 [UNIT Y] ANEUP LOIDY NIPT for detailed report, see pdf See PDF normal Not Available [facility] [address], [place], [address], 10/06/2024 23:31:19 10/13/19 25 10/12/2024 [UNIT Y] JENIFER Parra sickle cell disease/beta -thalassemia /hemoglobino pathies carrier screen NEGATI VE normal Not Available [facility] [address], [place], [address], 10/12/2024 10:46:31 10/13/19 25 10/12/2024 [UNIT Y] JENIFER Parra alpha-thalas semia carrier screen NEGATI VE normal Not Available [facility] [address], [place], [address], 10/12/2024 10:46:31 10/13/19 25 10/12/2024 [UNIT Y] JENIFER Parra cystic fibrosis carrier screen NEGATI VE normal Not Available [facility] [address], [place], [address], 10/12/2024 10:46:31 10/13/19 25 10/12/2024 [UNIT Y] JENIFER Parra spinal muscular atrophy carrier screen NEGATI VE 2 SMN1 copies , SNP not presen t normal Not Available [facility] [address], [place], [address], 10/12/2024 10:46:31 10/13/19 25 10/12/2024 [UNIT Y] JENIFER Parra for detailed report, see pdf See PDF normal Not Available [facility] [address], [place], [address], 10/12/2024 10:46:31 10/01/19 25 09/30/2024 CBC W/DIF F WBC 5.6 10'3/ uL 3.5-10 .5 Not Available [facility] (Lab) [address], [place], [address], 10/01/2024 11:38:09 10/01/19 25 09/30/2024 CBC W/DIF F RBC 3.95 10'6/ uL (based on docume nted legal sex) 3.80-5 .20 Not Available [facility] (Lab) [address], [place], [address], 10/01/2024 11:38:09 10/01/19 25 09/30/2024 CBC W/DIF F HGB 12.5 g/dL (based on docume nted legal sex) 11.6-1 5.4 Not Available [facility] (Lab) [address], [place], [address], 10/01/2024 11:38:09 10/01/19 25 09/30/2024 CBC W/DIF F HCT 37.1 % (based on docume nted legal sex) 34.0-4 5.0 Not Available [facility] (Lab) [address] [facility], [place], [address], 10/01/2024 11:38:09 10/01/19 25 09/30/2024 CBC W/DIF F MCV 93.9 fL 80.0-9 9.0 Not Available [facility] (Lab) [address] [facility], [place], [address], 10/01/2024 11:38:09 10/01/19 25 09/30/2024 CBC W/DIF F MCH 31.6 pg 27.0-3 4.0 Not Available [facility] (Lab) [address] [facility], [place], [address], 10/01/2024 11:38:09 10/01/19 25 09/30/2024 CBC W/DIF F MCHC 33.7 g/dL 32.0-3 5.5 Not Available [facility] (Lab) [address] [facility], [place], [address], 10/01/2024 11:38:09 10/01/19 25 09/30/2024 CBC W/DIF F RDW 12.8 % 11.0-1 5.0 Not Available [facility] (Lab) [address] [facility], [place], [address], 10/01/2024 11:38:09 10/01/19 25 09/30/2024 CBC W/DIF F plt 198 10'3/ uL 150-40 0 Not Available [facility] (Lab) [address] [facility], [place], [address], 10/01/2024 11:38:09 10/01/19 25 09/30/2024 CBC W/DIF F MPV 10.8 fL 8.8-12 .1 Not Available [facility] (Lab) [address] [facility], [place], [address], 10/01/2024 11:38:09 10/01/19 25 09/30/2024 CBC W/DIF F NRBC's 0.0 % 0.0 Not Available [facility] (Lab) [address] [facility], [place], [address], 10/01/2024 11:38:09 10/01/19 25 09/30/2024 CBC W/DIF F absolute NRBCs 0.0 10'3/ uL no refere nce range establ ished Not Available [facility] (Lab) [address], [place], [address], 10/01/2024 11:38:10/01/1909/30/2024 CBC W/DIF F neutrophils 73.5 % 34.0-7 3.0 high Not Available [facility] (Lab) [address] [facility], [place], [address], 10/01/2024 11:38:10/01/19 25 09/30/2024 CBC W/DIF F lymphocytes 18.1 % 15.0-5 0.0 Not Available [facility] (Lab) [address] [facility], [place], [address], 10/01/2024 11:38:10/01/19 25 09/30/2024 CBC W/DIF F monocytes 6.4 % 1.0-15 .0 Not Available [facility] (Lab) [address] [facility], [place], [address], 10/01/2024 11:38:10/01/19 25 09/30/2024 CBC W/DIF F eosinophils 1.2 % 0.0-8. 0 Not Available [facility] (Lab) [address] [facility], [place], [address], 10/01/2024 11:38:09 10/01/1909/30/2024 CBC W/DIF F basophils 0.4 % 0.0-2. 0 Not Available [facility] (Lab) [address], [place], [address], 10/01/2024 11:38:09 10/01/1909/30/2024 CBC W/DIF F immature granulocytes 0.4 % no define d refere nce range Immat ure Granu locyt es (IG) repre sents autom ated enume ratio n of Metam yeloc ytes, Myelo cytes and Promy elocy bud when IG is < 5%. Blast s are not inclu ded in IG and repor manisha separ ately if prese nt. Not Available [facility] (Lab) [address], [place], [address], 10/01/2024 11:38:10/01/1909/30/2024 CBC W/DIF F absolute neutrophils 4.1 10'3/ uL 1.5-8. 0 Not Available [facility] (Lab) [address], [place], [address], 10/01/2024 11:38:09 10/01/1909/30/2024 CBC W/DIF F absolute lymphocytes 1.0 10'3/ uL 1.0-4. 0 Not Available [facility] (Lab) [address], [place], [address], 10/01/2024 11:38:09 10/01/1909/30/2024 CBC W/DIF F absolute monocytes 0.4 10'3/ uL 0.2-1. 0 Not Available [facility] (Lab) [address], [place], [address], 10/01/2024 11:38:09 10/01/1909/30/2024 CBC W/DIF F absolute eosinophils 0.1 10'3/ uL 0.0-0. 6 Not Available [facility] (Lab) [address], [place], [address], 10/01/2024 11:38:09 10/01/19 25 09/30/2024 CBC W/DIF F absolute basophils 0.0 10'3/ uL 0.0-0. 3 Not Available [facility] (Lab) [address] [facility], [place], [address], 10/01/2024 11:38:09 10/01/19 25 09/30/2024 CBC W/DIF [...] the indiv idual patie nt: https ://la daiana book. nm.or g/gen derx Not Available [facility] (Lab) [address], [place], [address], 10/01/2024 11:38:09 10/01/1909/30/2024 HEPAT ITIS B SURFA CE ANTIG EN hepatitis B surface antigen Non-re active non-re active This assay was perfo rmed using [employer] ratio n reage nts and test kits. Value s obtai tacho with other assay metho ds or kits canno t be used inter cronin eably . Not Available [facility] (Lab) [address], [place], [address], 10/01/2024 11:38:10 10/01/1909/30/2024 HIV 1/2 ANTIG EN/AN TIBOD Y, REFLE X CONFI RMATI ON HIV antigen/anti body Nonrea ctive nonrea ctive HIV-1 antig en and HIV-1 /HIV- 2 antib odies were not detec manisha. No labor atory evide nce of HIV infec tion. Not Available [facility] (Lab) [address], [place], [address], 10/01/2024 11:38:10 10/01/19 25 09/30/2024 HEPAT ITIS C ANTIB ALISHA SCREE N, REFLE X TO CONFI RMATI ON hepatitis C antibody Non-re active non-re active Antib odies to HCV Not Detec manisha, does not exclu de the possi bilit y of expos ure to HCV. Not Available [facility] (Lab) [address], [place], [address], 10/01/2024 11:38:11 10/01/19 25 09/30/2024 RUBEL LA IGG ANTIB ALISHA, QUANT rubella antibodies, IgG Reacti ve reacti ve Not Available [facility] (Lab) [address], [place], [address], 10/01/2024 11:38:11 10/01/19 25 09/30/2024 RUBEL LA IGG ANTIB ALISHA, QUANT rubella antibodies, IgG quant 12.5 IU/mL >=10 Non-r eacti ve (Non- Immun e) <10 IU/mL React adina (Immu ne) > or = 10 IU/mL Not Available [facility] (Lab) [address], [place], [address], 10/01/2024 11:38:11 10/01/19 25 09/30/2024 TYPE/ RH/SC REEN ABO/Rh type A POS Not Available [facility] (Lab) [address], [place], [address], 10/01/2024 11:38:12 10/01/1909/30/2024 TYPE/ RH/SC REEN antibody screen NEG Not Available [facility] (Lab) [address], [place], [address], 10/01/2024 11:38:12 10/01/19 25 09/30/2024 TYPE/ RH/SC REEN exp date 2024 23:59 Not Available [facility] (Lab) [address], [place], [address], 10/01/2024 11:38:12 10/01/19 25 09/30/2024 HEMOG LOBIN A1C hemoglobin A1C 4.9 % 4.0-5. 6 The Ameri can [employer] bud [employer] iatio n recom mends that a prima ry goal of thera py renuul d be a HBA1C of < 7% and that physi cians shoul d reeva luate the treat ment regim en in patie nts with HBA1C value s consi stent ly > 8%. <5.7% Swati l 5.7 - 6.4% Incre ased risk for diabe bud >=6.5 % Diagn ostic of diabe bud <7.0% Goal of thera py >8.0% Actio n sugge sted Not Available [facility] (Lab) [address] [facility], [place], [address], 10/01/2024 11:38:13 10/01/1909/30/2024 RPR SCREE N, REFLE X TITER /CONF IRMAT ION RPR qualitative Nonrea ctive nonrea ctive Not Available [facility] (Lab) [address] [facility], [place], [address], 10/01/2024 11:38:13 10/01/19 25 09/30/2024 CULTU RE: URINE result report SEE RESULT S BELOW Test: Cultu re: Urine Speci men Sourc e: Urine Voide d Speci men Type: Urine Speci men Date: 025 1011 Resul t Date: 2024 0559 Resul t Statu s: Final resul t Abnor mal: No Resul ting Lab: [facility] [address] [facility] [address] Tel: CULTU RE ----- ----- ----- --- No growt h in 1 day (dete ction level of 10,00 0 colon ies / ml.) Not Available [facility] (Lab) [address] [facility], [place], [address], 10/02/2024 07:03:32 10/01/19 25 09/30/2024 drug scree n, urine Amphetamines : negati ve Not Available [facility] [address], [place], [address], 09/30/2024 10:52:38 10/01/19 25 09/30/2024 drug scree n, urine Cannabinoids : positi ve Not Available [facility] [address], [place], [address], 09/30/2024 10:52:38 10/01/19 25 09/30/2024 drug scree n, urine Cocaine: negati ve Not Available [facility] [address], [place], [address], 09/30/2024 10:52:38 10/01/19 25 09/30/2024 drug scree n, urine Opiates: negati ve Not Available [facility] [address], [place], [address], 09/30/2024 10:52:38 10/01/19 25 09/30/2024 drug scree n, urine Phenocyclidi ne: negati ve Not Available [facility] [address], [place], [address], 09/30/2024 10:52:38 10/01/19 25 09/30/2024 drug scree n, urine Barbiturates : negati ve Not Available [facility] [address], [place], [address], 09/30/2024 10:52:38 10/01/19 25 09/30/2024 drug scree n, urine Benzodiazepi carla: negati ve Not Available [facility] [address], [place], [address], 09/30/2024 10:52:38 10/01/19 25 09/30/2024 drug scree n, urine Ethanol: negati ve Not Available [facility] [address], [place], [address], 09/30/2024 10:52:38 10/01/19 25 09/30/2024 drug scree n, urine Hallucinogen s: negati ve Not Available [facility] [address], [place], [address], 09/30/2024 10:52:38 10/01/19 25 09/30/2024 drug scree n, urine Inhalants: negati ve Not Available [facility] [address], [place], [address], 09/30/2024 10:52:38 10/01/19 25 09/30/2024 drug scree n, urine Anabolic Steroids: negati ve Not Available [facility] [address], [place], [address], 09/30/2024 10:52:38 11/27/19 25 11/26/2024 CULTU RE: URINE result report SEE RESULT S BELOW Test: Cultu re: Urine Speci men Sourc e: Urine Voide d Speci men Type: Urine Speci men Date: 1312 Resul t Date: 7 Resul t Statu s: Final resul t Abnor mal: No Resul ting Lab: [facility] [address] [facility] [address] Tel: CULTU RE ----- ----- ----- --- No growt h in 1 day (dete ction level of 10,00 0 colon ies / ml.) Not Available [facility] (Lab) [address] [facility], [place], [address], 11/28/2024 13:32:03 11/27/19 25 11/26/2024 CT/GC AND TRICH OMONA S VAGIN KYLAH (RRNA ), URINE chlamydia trachomatis, PCR Negati ve negati ve Not Available [facility] (Lab) [address] [facility], [place], [address], 11/28/2024 13:32:04 11/27/19 25 11/26/2024 CT/GC AND TRICH OMONA S VAGIN KYLAH (RRNA ), URINE neisseria gonorrhoeae, PCR Negati ve negati ve Not Available [facility] (Lab) [address] [facility], [place], [address], 11/28/2024 13:32:04 11/27/19 25 11/26/2024 CT/GC AND TRICH OMONA S VAGIN KYLAH (RRNA ), URINE trichomonas vaginalis ribosomal RNA (rrna) Negati ve negati ve Not Available [facility] (Lab) [address] [facility], [place], [address], 11/28/2024 13:32:04 01/28/20 25 01/27/2025 HEMOG LOBIN (HGB) HGB 12.0 g/dL (based on docume nted legal sex) 11.6-1 5.4 Not Available [facility] (Lab) [address] [facility], [place], [address], 01/28/2025 12:35:48 01/28/20 25 01/27/2025 HEMAT OCRIT (HCT) HCT 35.8 % (based on docume nted legal sex) 34.0-4 5.0 Not Available [facility] (Lab) [address] [facility], [place], [address], 01/28/2025 12:35:48 01/28/20 25 01/27/2025 GTT - GESTA OBEY Viviana Parra, ACOG OB glucose, 1 hour screen 105 mg/dL 70-135 Not Available [facility] (Lab) [address] [facility], [place], [address], 01/28/2025 12:35:49 01/28/20 25 01/27/2025 HIV 1/2 ANTIG EN/AN TIBOD Y, REFLE X CONFI RMATI ON HIV antigen/anti body Nonrea ctive nonrea ctive HIV-1 antig en and HIV-1 /HIV- 2 antib odies were not detec manisha. No labor atory evide nce of HIV infec tion. Not Available [facility] (Lab) [address] [facility], [place], [address], 01/28/2025 12:35:49 01/28/2001/27/2025 RPR SCREE N, REFLE X TITER /CONF IRMAT ION RPR qualitative Nonrea ctive nonrea ctive Not Available [facility] (Lab) [address] [place], [address], 01/28/2025 12:35:50 10/01/19 25 09/30/2024 US, obste tric, nucha l trans lucen cy No observ ation record ed. [email or web address] [facility] [address], [place], [address], 09/30/2024 13:22:32 10/01/19 25 09/30/2024 US, obste tric, nucha l trans lucen cy No observ ation record ed. [email or web address] [facility] [address], [place], [address], 10/03/2024 17:35:49 11/27/19 25 11/26/2024 US, obste tric, 2nd or 3rd trime ster No observ ation record ed. [email or web address] [facility] [address], [place], [address], 11/26/2024 18:48:44 11/27/19 25 11/26/2024 US, obste tric, 2nd or 3rd trime ster No observ ation record ed. RODRIGO [facility] [address], [place], [address], 11/26/2024 20:56:33 11/27/19 25 11/26/2024 US, obste tric, 2nd or 3rd trime ster No observ ation record ed. RODRIGO [facility] [address], [place], [address], 11/26/2024 20:56:34 02/26/20 25 02/25/2025 US, obste tric, follo w-up No observ ation record ed. [facility] [address], [place], [address], 02/25/2025 13:29:09 02/26/20 25 02/25/2025 US, obste tric, follo w-up No observ ation record ed. RODRIGO [facility] [address], [place], [address], 02/28/2025 16:38:30 03/02/20 25 03/01/2025 imagi ng/di agnos tic resul t No observ ation record ed. [facility] [address], [place], [address], 03/02/2025 16:17:21 Result Notes None recorded. Problems Name Problem SNOMED Code Status Onset Date Resolution Date Notes Provider Name and Address Organization Details Recorded Time 55275688 Active 025 Natalia Villanueva [facility] 10:12:39 Acute cystitis 10579051 Active 025 CAITIE at 20 weeks BONITA RAMAN MD [address], [place], [address], [facility] 12:45:20 Problem Notes None recorded. Medical [...] Recorded Body height Body mass index (BMI) Body mass index (BMI) [Percentile] Per age and sex Body weight Systolic And Diastolic Provider Name and Address Organization Details Last Updated DateTime 12/24/2024 167.64 cm 27.3 kg/m2 86 % 42616.1 1 g 118/75 mm[Hg] Lilly Michelle [facility] 12:26:20 Social History Question Answer Notes LastModified by Organizat ion Details LastModified Time Tobacco Smoking Status Never Smoker MANINDER Pebbles john, [facility] 09/02/2024 17:29:38 Do You Have An Advance Directive? No [email or web address] Information n ot available 09/02/2024 If You Are , What Was Your Level Of Alcohol Consumption Prior To ? None [email or web address] Information not available 09/02/2024 Are You Blind Or Do You Have Difficulty Seeing? No [email or web address] Information n ot available 09/02/2024 What Is Your Level Of Caffeine Consumption? None [email or web address] Information not available 09/02/2024 In The 14 Days Before Symptom Onset, Have You Had Close Contact With A Laboratory-confirm ed COVID-19 While That Case Was Ill? No [email or web address] Information n ot available 09/02/2024 In The 14 Days Before Symptom Onset, Have You Had Close Contact With A Person Who Is Under Investigation For COVID-19 While That Person Was Ill? No Information not available 09/02/2024 Have You Been To An Area Known To Be High Risk For COVID-19? No [email or web address] Information not available 09/02/2024 Are You Deaf Or Do You Have Serious Difficulty Hearing? No [email or web address] Information not available 09/02/2024 What Type Of Diet Are You Following? REGULAR [email or web address] Information n ot available 09/02/2024 What Is The Highest Grade Or Level Of School You Have Completed Or The Highest Degree You Have Received? BH39590-2 [email or web address] Information not available 09/02/2024 Are There Any Guns Present In Your Home? No [email or web address] Information not available 09/02/2024 Do You Use Your Seat Belt Or Car Seat Routinely? Yes [email or web address] Information not available 09/02/2024 Are You Sexually Active? Yes [email or web address] Information not available 09/02/2024 Do You Have Smoke And Carbon Monoxide Detectors In Your Home? Yes [email or web address] Information not available 09/02/2024 Do You Use Sunscreen Routinely? Yes [email or web address] Information not available 09/02/2024 Has Tobacco Cessation Counseling Been Provided? No [email or web address] Information not available 09/02/2024 Do You Have Difficulty Walking Or Climbing Stairs? No [email or web address] Information not available 09/02/2024 How Many Years Have You Used E-cigarettes Or Vape? 3 [email or web address] Information not available 09/02/2024 Sex: Unknown Functional Status Question Answer Note LastModified by Organizat ion Details LastModified Time Do you use any illicit or recreational drugs? No [email or web address] Information not available 09/02/2024 Do you or have you ever used any other forms of tobacco or nicotine? Yes [email or web address] Information not available 09/02/2024 What is your level of alcohol consumption? None [email or web address] Information not available 09/02/2024 Do you or have you ever used smokeless tobacco? Never used smokeless tobacco [email or web address] Information not available 09/02/2024 Are you currently employed? No [email or web address] Information not available 09/02/2024 Are you able to walk independently without assistance or assistive devices? YESWOREST [email or web address] Information not available 09/02/2024 Are you able to care for yourself independently? Yes [email or web address] Information not available 09/02/2024 Do you have difficulty dressing, bathing, grooming, or toileting? Yes [email or web address] Information not available 09/02/2024 Do you or have you ever used e-cigarettes or vape? Current user of electronic cigarettes [email or web address] Information not available 09/02/2024 What is your exercise level? None [email or web address] Information not available 09/02/2024 Mental Status Question Answer Note LastModified by Organization D etails LastModified Time Do you feel stressed (tense, restless, nervous, or anxious, or unable to sleep at night)? [id number] Information not available 09/02/2024 Family History Relationship Description Onset Age of this Age Resolved Age Notes LastModified by Organization Details LastModified Time Mother Malignant neoplasm of breast [email or web address] Not available 2024 17:29:18 Maternal Grandmother Malignant neoplasm of lung [email or web address] Not available 2024 17:29:27 Medical History Condition [...] ICD10 Code Diagnosis IMO Codes Diagnosis Note [id number] Rod Franklin MD [facility] [address] [address] 11/26/2024 11:05:29 11/26/2024 12:06:45 Ultrasound scan - obstetric 777894966 Z36.3 Z3A.20 [id number] BONITA RAMAN MD [facility] [address],[place] [address] 11/26/2024 11:06:12 11/26/2024 12:58:53 care status [id number] Z34.82 [id number] - continue PNV [id number] BONITA RAMAN MD [facility] [address],[place] [address] 12/24/2024 12:07:30 12/24/2024 12:43:03 screening [id number] Z36.89 Gestation period, 24 weeks [id number] Z3A.24 [id number] - continue [facility] Concerns Section Related Observation LastModified by Organization Detai ls LastModified Time None Recorded Concern Status LastModified by Organization Details LastModified Time None Recorded Payers Encounter Date Sequence Insurance Name Policy Number Policy Snowden Covered Member ID Snowden Member ID Guarantor Name 12/24/2024 1 [facility] (MEDICAID HMO) [id number] Opal Spear [id number] Opal Spear Notes Date Note Type Note Provider Name and Address Organization Details Recorded Time 12/24/2024 text/html Generic HPI TemplateReported by Patient BONITA RAMAN MD [address], [place], [address], [facility] 12/24/2024 12:42:07 OBGyn Episode Ob Episode Information Episode Created Date Number of Fetuses Patient Bloodtype Patient rh Status Prepregnancy Weight lbs Domestic Partner Domestic Partner Phone Father Name Director Of Accounts Receivable Status 10/01/19 25 1 A Positive 137 Akash vann OPEN Fetus Data First Name Last Name Admitted to NICU Weight (g) Sex Living Outcome Pediatric Complications Fetus ID Race Codes Race Delivery Type [id number] Problems Problem Notes Problem Name Start Date End Date Resolution Snomed Code Not e Acute cystitis 11/26/2024 [id number] CAITIE at 20 weeks Wale Calculation Initial [...] Sound Latest Days Gestation 11/27/19 25 19 09/30/2024 04/15/19 26 4 Pre- Flowsheet Flowsheet Date 09/30/2024 Demarco Score Blood Edema Fundus Height Fundus Units Glucose Ketones Leukocytes Nitrite Labor Signs Protein Cervic Dilation Cervic Effacement Cervic Station Type Weight in lbs Pre/Post Dialysis Refused Weight 138.943843045398 BP Diastolic BP Location Tested BP Systolic BP Type 80 L arm 127 sitting Fetus Heart Rate Present A 164 Fetus Movement Comments Patient presents to [facility] care. otherwise uncomplicated. No nausea or cramping. NT/NB wnl today, desires NIPT. Will draw today with new OB labs. RTC 4 weeks for routine care. Flowsheet Date 10/28/2024 Demarco Score Blood Edema Fundus Height Fundus Units Glucose Ketones Leukocytes Nitrite Labor Signs Protein Cervic Dilation Cervic Effacement Cervic Station Type Weight in lbs Pre/Post Dialysis Refused Weight 146.260470760801 BP Diastolic BP Location Tested BP Systolic BP Type 73 L arm 115 sitting Fetus Heart Rate Present A 155 Fetus Movement Comments Doing well, pain improved, w as seen at [facility] for back pain and was diagnosed with [...] Type Weight in lbs Pre/Post Dialysis Refused 156.147463530950 BP Diastolic BP Location Tested BP Systolic [...] Weight in lbs Pre/Post Dialysis Refused Weight 169.142225180158 BP Diastolic BP Location Tested BP Systolic [...] Weight in lbs Pre/Post Dialysis Refused Weight 167.640629642338 BP Diastolic BP Location Tested BP Systolic [...] Weight in lbs Pre/Post Dialysis Refused Weight 172.479073635995 BP Diastolic BP Location Tested BP Systolic [...] Weight in lbs Pre/Post Dialysis Refused Weight 177.096233796092 BP Diastolic BP Location Tested BP Systolic [...] Type Weight in lbs Pre/Post Dialysis Refused 181.251240800399 BP Diastolic BP Location Tested BP Systolic [...] Weight in lbs Pre/Post Dialysis Refused Weight 183.667915895340 BP Diastolic BP Location Tested BP Systolic [...] Weight in lbs Pre/Post Dialysis Refused Weight 187.079257245477 BP Diastolic BP Location Tested BP Systolic [...]
--- OUTSIDE RECORDS SUMMARY | 2025-03-22 17:54 | XMS_ITS | Data Portability ---
Author Organization [facility] [employer] , [facility] Address [address] [place] [address] Assessment No assessment recorded. Plan of Treatment Reminders Order Date Submit Date Provider Last Modified By Organization Details Last Modified Time Details Appointments None recorded. Lab unlisted lab - STD screening ([facility]) 2024 025 [employer] [facility], [address] [place], [address], 5 14:38:46 hsv (1+2) igg, serum 2024 025 [employer] [facility], [address] [facility], [place], [address], 5 17:50:20 STI panel 2024 025 [employer], [address] [place], [address], 5 09:40:42 Referral None recorded. Procedures None recorded. Surgeries None recorded. Imaging None recorded. Medication Orders None recorded. Patient TargetsNo targets recorded. Patient Instructions Encounter Date Encounter Id Patient Instructions Last Modified By Organization Details Last Modified Time 04/03/2024 [id number] exposure to sexually transmitted infections: care instructions [email or web address] Not available 04/03/2024 15:46:25 Reason for Referral None Reported. Results Created Date Observation Date Name Description Value Unit Range Abnormal Flag Note LastModifiedBy Organization Detail LastModifiedTime 04/04/19 25 04/04/2024 HSV 1/2 IGG,T YPE SPECI FIC AB hsv 1 IgG, type specific Ab 23.80 index high Not Available [employer] [facility] [address] [place], [address], 04/04/2024 17:50:20 04/04/19 25 04/04/2024 HSV 1/2 [...] scree john. For addit ional infor elsie mccullough refer to http: //[email or web address] [email or web address] stDia gnost ics.c om/fa q/FAQ [...] NUMBE R: 866.6 97.83 78 Not Available [employer] [facility] [address] [place], [address], 04/04/2024 17:50:20 04/03/19 25 04/04/2024 STD SCREE JOHN ([facility] ) hep BS Ag Non-Re active non-re active normal Not Available [address], [place], [address], 04/04/2024 14:38:46 04/03/19 25 04/04/2024 STD SCREE JOHN ([facility] ) hep C Ab Non-Re active non-re active normal Not Available [address], [address], 04/04/2024 14:38:46 04/03/19 25 04/04/2024 STD SCREE JOHN ([facility] ) HIV 1/2 Ag/Ab Non-Re active non-re active normal Not Available [address], [address], 04/04/2024 14:38:46 04/03/19 25 04/04/2024 STD SCREE JOHN ([facility] ) syphilis Ab Non-Re active non-re active normal Not Available [address], [address], 04/04/2024 14:38:46 04/03/19 25 04/09/2024 STI PANEL trichomonas vaginalis TRICH neg negati ve normal Not Available [address], [address], 04/10/2024 09:40:42 04/03/19 25 04/09/2024 STI PANEL chlamydia trachomatis CT neg negati ve normal This repor t is inten ded for us in clini jasmeet monit oring and manag ement of patie nts. It is not inten ded for use in medic al-le gal appli catio n. Not Available [address], [address], 04/10/2024 09:40:42 04/03/19 25 04/09/2024 STI PANEL neisseria gonorrhoeae GC neg negati ve normal This repor t is inten ded for us in clini jasmeet monit oring and manag ement of patie nts. It is not inten ded for use in medic al-le gal appli catio n. Not Available Cor[employer] Danie [address] [facility], [place], [address], 04/10/2024 09:40:42 Result Notes None recorded. Medical [...] DateTime 167.64 cm 68 % 23.5 kg/m2 07820.0 5 g 97.6 [degF] 122/64 mm[Hg] Thais Cavanaugh [facility] IV 15:33:31 Social History Question Answer Notes LastModified by Organizat ion Details LastModified Time Tobacco Smoking Status Never Smoker Thais john, [employer] IV 04/03/2024 15:24:52 If You Are , [...] ICD10 Code Diagnosis IMO Codes Diagnosis Note [id number] THAIS PATEL NP [facility] [address] [facility] [place] [phone] 04/03/2024 14:56:59 04/03/2024 16:39:48 Venereal disease screening [id number] Z11.3 [id number] Ms. Spear, a 19 yo presents to the office for c/o vaginal discharge. She describes the discharge as white & says that it has been going on for over 2wks. Denies any irritation or itching. She also asked to have STI bloodwork performed. POCvaginal swabSTI bloodworkw ill treat as needed Depression screening 171 980219 Z13.31 [id number] Health Concerns Section Related Observation LastModified by Organization Detai ls LastModified Time None Recorded Concern Status LastModified by Organization Details LastModified Time None Recorded Advance Directives Directive None Recorded Payers Insurance Date Sequence Insurance Name Policy Number Policy Snowden Covered Member ID Snowden Member ID Guarantor Name 04/10/2024 1 [facility] [id number] Opal Spear [id number] Opal Spear Notes Date Note Type Note Provider Name and Address Organization Details Recorded Time 5 text/html STD screeningReported by PatientDischargeFor location, patient reportsvagina. For quality, patient reportswhite. For severity, patient reportsimproving. For duration, patient reportssymptoms lasting over 2 weeks. For onset/timing, patient reportsdaily. For context, patient reportscurrent contraception:. For associated symptoms, patient reportsno vaginal itching,no vaginal burning,no swelling/redness,no fever/chills,no diarrhea,no abdominal pain,no pelvic pain,no vaginal pain,no pain during urination,no pain during intercourse,no vaginal lump,no genital lesion,no sexually transmitted disease, andno fever.ROS as noted in the HPI THAIS PATEL NP [address] [facility], [place], [address], [facility] - [employer] 04/05/2024 15:49:52 OBGyn Episode No OBEpisode recorded.
--- OUTSIDE RECORDS SUMMARY | 2025-03-22 17:54 | XMS_ITS | Continuity of Care Document ---
Author Organization [facility], [facility] Address [address] [place] [address] Assessment No assessment recorded. Plan of Treatment [...] recorded . Surgeries None recorded . Imaging None recorded . Medication Orders None recorded . Patient TargetsNo targets recorded. Patient InstructionsNo instructions recorded. Reason for Referral None Reported. Results Created Date Observation Date Name Description Value Unit Range Abnormal Flag Note LastModifiedBy Organization Detail LastModifiedTime 10/07/19 25 10/06/2024 [UNIT Y] ANEUP LOIDY NIPT fraction 8.1% normal Not Available Liana Perez[address], [place], [address], 10/06/2024 23:31:19 10/07/19 25 10/06/2024 [UNIT Y] ANEUP LOIDY NIPT 22Q11.2 microdeletio n LOW RISK <1 in 10,000 normal Not Available Jono wright [address], [place], [address], 10/06/2024 23:31:19 10/07/19 25 10/06/2024 [UNIT Y] ANEUP LOIDY NIPT sex chromosome aneuploidy NOT DETECT ED normal Not Available [facility] [address], [place], [address], 10/06/2024 23:31:19 10/07/19 25 10/06/2024 [UNIT Y] ANEUP LOIDY NIPT monosomy X LOW RISK <1 in 10,000 normal Not Available [facility] [address], [place], [address], 10/06/2024 23:31:19 10/07/19 25 10/06/2024 [UNIT Y] ANEUP LOIDY NIPT trisomy 13 LOW RISK <1 in 10,000 normal Not Available [facility] [address], [place], [address], 10/06/2024 23:31:19 10/07/19 25 10/06/2024 [UNIT Y] ANEUP LOIDY NIPT trisomy 18 LOW RISK <1 in 10,000 normal Not Available [facility] [address], [place], [address], 10/06/2024 23:31:19 10/07/19 25 10/06/2024 [UNIT Y] ANEUP LOIDY NIPT trisomy 21 LOW RISK <1 in 10,000 normal Not Available [facility] [address], [place], [address], 10/06/2024 23:31:19 10/07/19 25 10/06/2024 [UNIT Y] ANEUP LOIDY NIPT sex FEMALE normal Not Available [facility] [address], [place], [address], 10/06/2024 23:31:19 10/07/19 25 10/06/2024 [UNIT Y] ANEUP LOIDY NIPT gestation SINGLE TON normal Not Available [facility] [address], [place], [address], 10/06/2024 23:31:19 10/07/19 25 10/06/2024 [UNIT Y] ANEUP EMY NIPT for detailed report, see pdf See PDF normal Not Available [facility] [address], [place], [address], 10/06/2024 23:31:19 10/13/19 25 10/12/2024 [UNIT Y] JENIFER Parra sickle cell disease/beta -thalassemia /hemoglobino pathies carrier screen NEGATI VE normal Not Available [facility] [address], [place], [address], 10/12/2024 10:46:31 10/13/19 25 10/12/2024 [UNIT Y] JENIFER SINAI Parra alpha-thalas semia carrier screen NEGATI VE normal Not Available [facility] [address], [place], [address], 10/12/2024 10:46:31 10/13/19 25 10/12/2024 [UNIT Y] JENIFER SINAI Parra cystic fibrosis carrier screen NEGATI VE normal Not Available [facility] [address], [place], [address], 10/12/2024 10:46:31 10/13/19 25 10/12/2024 [UNIT Y] JENIFER Parra spinal muscular atrophy carrier screen NEGATI VE 2 SMN1 copies , SNP not presen t normal Not Available [facility] [address], [place], [address], 10/12/2024 10:46:31 10/13/19 25 10/12/2024 [UNIT Y] JENIFER Parra for detailed report, see pdf See PDF normal Not Available [facility] [address], [place], [address], 10/12/2024 10:46:31 10/01/19 25 09/30/2024 CBC W/DIF F WBC 5.6 10'3/ uL 3.5-10 .5 Not Available [facility] (Lab) [address], [place], [address], 10/01/2024 11:38:10/01/19 25 09/30/2024 CBC W/DIF F RBC 3.95 10'6/ uL (based on docume nted legal sex) 3.80-5 .20 Not Available [facility] (Lab) [address], [place], [address], 10/01/2024 11:38:09 10/01/19 25 09/30/2024 CBC W/DIF F HGB 12.5 g/dL (based on docume nted legal sex) 11.6-1 5.4 Not Available [facility] (Lab) [address], [place], [address], 10/01/2024 11:38:10/01/19 25 09/30/2024 CBC W/DIF F HCT 37.1 % (based on docume nted legal sex) 34.0-4 5.0 Not Available [facility] (Lab) [address], [place], [address], 10/01/2024 11:38:10/01/1909/30/2024 CBC W/DIF F MCV 93.9 fL 80.0-9 9.0 Not Available [facility] (Lab) [address], [place], [address], 10/01/2024 11:38:10/01/1909/30/2024 CBC W/DIF F MCH 31.6 pg 27.0-3 4.0 Not Available [facility] (Lab) [address], [place], [address], 10/01/2024 11:38:10/01/1909/30/2024 CBC W/DIF F MCHC 33.7 g/dL 32.0-3 5.5 Not Available [facility] (Lab) [address], [place], [address], 10/01/2024 11:38:09 10/01/19 25 09/30/2024 CBC W/DIF F RDW 12.8 % 11.0-1 5.0 Not Available [facility] (Lab) [address], [place], [address], 10/01/2024 11:38:09 10/01/19 25 09/30/2024 CBC W/DIF F plt 198 10'3/ uL 150-40 0 Not Available [facility] (Lab) [address], [place], [address], 10/01/2024 11:38:09 10/01/1909/30/2024 CBC W/DIF F MPV 10.8 fL 8.8-12 .1 Not Available [facility] (Lab) [address], [place], [address], 10/01/2024 11:38:09 10/01/19 25 09/30/2024 CBC W/DIF F NRBC's 0.0 % 0.0 Not Available [facility] (Lab) [address], [place], [address], 10/01/2024 11:38:09 10/01/19 25 09/30/2024 CBC W/DIF F absolute NRBCs 0.0 10'3/ uL no refere nce range establ ished Not Available [facility] (Lab) [address], [place], [address], 10/01/2024 11:38:09 10/01/19 25 09/30/2024 CBC W/DIF F neutrophils 73.5 % 34.0-7 3.0 high Not Available [facility] (Lab) [address], [place], [address], 10/01/2024 11:38:09 10/01/19 25 09/30/2024 CBC W/DIF F lymphocytes 18.1 % 15.0-5 0.0 Not Available [facility] (Lab) [address], [place], [address], 10/01/2024 11:38:09 10/01/19 25 09/30/2024 CBC W/DIF F monocytes 6.4 % 1.0-15 .0 Not Available [facility] (Lab) [address], [place], [address], 10/01/2024 11:38:09 10/01/19 25 09/30/2024 CBC W/DIF F eosinophils 1.2 % 0.0-8. 0 Not Available [facility] (Lab) [address], [place], [address], 10/01/2024 11:38:09 10/01/19 25 09/30/2024 CBC W/DIF F basophils 0.4 % 0.0-2. 0 Not Available [facility] (Lab) [address], [place], [address], 10/01/2024 11:38:09 10/01/19 25 09/30/2024 CBC W/DIF [...] separ ately if prese nt. Not Available [facility] (Lab) [address], [place], [address], 10/01/2024 11:38:09 10/01/19 25 09/30/2024 CBC W/DIF F absolute neutrophils 4.1 10'3/ uL 1.5-8. 0 Not Available [facility] (Lab) [address], [place], [address], 10/01/2024 11:38:09 10/01/19 25 09/30/2024 CBC W/DIF F absolute lymphocytes 1.0 10'3/ uL 1.0-4. 0 Not Available [facility] (Lab) [address], [place], [address], 10/01/2024 11:38:10/01/1909/30/2024 CBC W/DIF F absolute monocytes 0.4 10'3/ uL 0.2-1. 0 Not Available [facility] (Lab) [address], [place], [address], 10/01/2024 11:38:10/01/1909/30/2024 CBC W/DIF F absolute eosinophils 0.1 10'3/ uL 0.0-0. 6 Not Available [facility] (Lab) [address], [place], [address], 10/01/2024 11:38:09 10/01/1909/30/2024 CBC W/DIF F absolute basophils 0.0 10'3/ uL 0.0-0. 3 Not Available [facility] (Lab) [address], [place], [address], 10/01/2024 11:38:10/01/1909/30/2024 CBC W/DIF F absolute immature granulocytes 0.0 [...] scott book. nm.or g/gen derx Not Available [facility] (Lab) [address], [place], [address], 10/01/2024 11:38:10/01/1909/30/2024 HEPAT ITIS B SURFA CE ANTIG EN hepatitis B surface antigen Non-re active non-re active This assay was perfo rmed using [employer] ratio n reage nts and test kits. Value s obtai tacho with other assay metho ds or kits canno t be used inter cronin eably . Not Available [facility] (Lab) [address], [place], [address], 10/01/2024 11:38:10 10/01/1909/30/2024 HIV 1/2 ANTIG EN/AN TIBOD Y, REFLE X CONFI RMATI ON HIV antigen/anti body Nonrea ctive nonrea ctive HIV-1 antig en and HIV-1 /HIV- 2 antib odies were not detec manisha. No labor atory evide nce of HIV infec tion. Not Available [facility] (Lab) [address], [place], [address], 10/01/2024 11:38:10 10/01/1909/30/2024 HEPAT ITIS C ANTIB ALISHA SCREE N, REFLE X TO CONFI RMATI ON hepatitis C antibody Non-re active non-re active Antib odies to HCV Not Detec manisha, does not exclu de the possi bilit y of expos ure to HCV. Not Available [facility] (Lab) [address], [place], [address], 10/01/2024 11:38:11 10/01/1909/30/2024 RUBEL LA IGG ANTIB ALISHA, QUANT rubella antibodies, IgG Reacti ve reacti ve Not Available [facility] (Lab) [address], [place], [address], 10/01/2024 11:38:11 10/01/19 25 09/30/2024 RUBEL LA IGG ANTIB ALISHA, QUANT rubella antibodies, IgG quant 12.5 IU/mL >=10 Non-r eacti ve (Non- Immun e) <10 IU/mL React adina (Immu ne) > or = 10 IU/mL Not Available [facility] (Lab) [address], [place], [address], 10/01/2024 11:38:11 10/01/19 25 09/30/2024 TYPE/ RH/SC REEN ABO/Rh type A POS Not Available [facility] (Lab) [address], [place], [address], 10/01/2024 11:38:12 10/01/1909/30/2024 TYPE/ RH/SC REEN antibody screen NEG Not Available [facility] (Lab) [address], [place], [address], 10/01/2024 11:38:12 10/01/1909/30/2024 TYPE/ RH/SC REEN exp date 2024 23:59 Not Available [facility] (Lab) [address], [place], [address], 10/01/2024 11:38:12 10/01/19 25 09/30/2024 HEMOG LOBIN [...] >8.0% Actio n sugge sted Not Available [facility] (Lab) [address], [place], [address], 10/01/2024 11:38:13 10/01/19 25 09/30/2024 RPR SCREE N, REFLE X TITER /CONF IRMAT ION RPR qualitative Nonrea ctive nonrea ctive Not Available [facility] (Lab) [address], [place], [address], 10/01/2024 11:38:13 10/01/1909/30/2024 CULTU RE: URINE result report SEE RESULT S BELOW Test: Cultu re: Urine Speci men Sourc e: Urine Voide d Speci men Type: Urine Speci men Date: 025 1011 Resul t Date: 2024 0559 Resul t Statu s: Final resul t Abnor mal: No Resul ting Lab: [facility] [address] [facility] [place] [address] Tel: CULTU RE ----- ----- ----- --- No growt h in 1 day (dete ction level of 10,00 0 colon ies / ml.) Not Available [facility] (Lab) [address], [place], [address], 10/02/2024 07:03:32 10/01/19 25 09/30/2024 drug scree n, urine Amphetamines : negati ve Not Available [place] [address], [place], [address], 09/30/2024 10:52:38 10/01/19 25 09/30/2024 drug scree n, urine Cannabinoids : positi ve Not Available [place] [address], [place], [address], 09/30/2024 10:52:38 10/01/19 25 09/30/2024 drug scree n, urine Cocaine: negati ve Not Available [facility] [address], [place], [address], 09/30/2024 10:52:38 10/01/19 25 09/30/2024 drug scree n, urine Opiates: negati ve Not Available [facility] [address], [place], [address], 09/30/2024 10:52:38 10/01/19 25 09/30/2024 drug scree n, urine Phenocyclidi ne: negati ve Not Available [place] [address], [place], [address], 09/30/2024 10:52:38 10/01/19 25 09/30/2024 drug scree n, urine Barbiturates : negati ve Not Available [place] [address], [place], [address], 09/30/2024 10:52:38 10/01/19 25 09/30/2024 drug scree n, urine Benzodiazepi carla: negati ve Not Available [place] [address], [place], [address], 09/30/2024 10:52:38 10/01/19 25 09/30/2024 drug scree n, urine Ethanol: negati ve Not Available [place] [address], [place], [address], 09/30/2024 10:52:38 10/01/19 25 09/30/2024 drug scree n, urine Hallucinogen s: negati ve Not Available [facility] [address], [place], [address], 09/30/2024 10:52:38 10/01/19 25 09/30/2024 drug scree n, urine Inhalants: negati ve Not Available [facility] [address], [place], [address], 09/30/2024 10:52:38 10/01/19 25 09/30/2024 drug scree n, urine Anabolic Steroids: negati ve Not Available [place] [address], [place], [address], 09/30/2024 10:52:38 11/27/19 25 11/26/2024 CULTU RE: URINE result report SEE RESULT S BELOW Test: Cultu re: Urine Speci men Sourc e: Urine Voide d Speci men Type: Urine Speci men Date: 025 1312 Resul t Date: 025 2207 Resul t Statu s: Final resul t Abnor mal: No Resul ting Lab: [facility] [address] [facility] [address] Tel: CULTU RE ----- ----- ----- --- No growt h in 1 day (dete ction level of 10,00 0 colon ies / ml.) Not Available [facility] (Lab) [address], [place], [address], 11/28/2024 13:32:03 11/27/19 25 11/26/2024 CT/GC AND TRICH OMONA S VAGIN WINSTON (RRNA ), URINE chlamydia trachomatis, PCR Negati ve negati ve Not Available [facility] (Lab) [address] [place], [address], 11/28/2024 13:32:04 11/27/19 25 11/26/2024 CT/GC AND TRICH OMONA S VAGIN WINSTON (RRNA ), URINE neisseria gonorrhoeae, PCR Negati ve negati ve Not Available [facility] (Lab) [address], [place], [address], 11/28/2024 13:32:04 11/27/19 25 11/26/2024 CT/GC AND TRICH OMONA S VAGIN WINSTON (RRNA ), URINE trichomonas vaginalis ribosomal RNA (rrna) Negati ve negati ve Not Available [facility] (Lab) [address] [place], [address], 11/28/2024 13:32:04 01/03/20 25 01/02/2025 CULTU RE: URINE result report SEE RESULT S BELOW Test: Cultu re: Urine Speci men Sourc e: Urine - Clean Catch Speci men Type: Urine Speci men Date: 01/02 1101 Resul t Date: 01/04 0616 Resul t Statu s: Final resul t Abnor mal: No Resul ting Lab: [facility] [address] [facility] [place] [address] Tel: CULTU RE ----- ----- ----- --- Cultu re resul t (>=3 organ isms prese nt) indic ates possi ble conta minat ion. Repea t cultu re if sympt oms indic ate. Not Available [facility] (Lab) [address], [place], [address], 01/04/2025 07:17:57 01/03/2001/02/2025 WOMEN 'S HEALT H [...] or negat adina statu s. Not Available [facility] (Lab) [address] [place], [address], 01/05/2025 08:57:21 01/03/2001/02/2025 WOMEN 'S HEALT H SWAB, LUIS MANUEL jeanmarie species, tma Positi ve negati ve abnormal Not Available [facility] (Lab) [address] [place], [address], 01/05/2025 08:57:21 01/03/2001/02/2025 WOMEN 'S HEALT H SWAB, LUIS MANUEL jeanmarie glabrata, tma Negati ve negati ve Not Available [facility] (Lab) [address] [place], [address], 01/05/2025 08:57:21 01/03/2001/02/2025 WOMEN 'S HEALT H SWAB, LUIS MANUEL trichomonas vaginalis, tma Negati ve negati ve This assay tests for and diffe renti ates richard en Alyson da glabr steff, the Alyson da speci es group (C. albic ans, C. tropi calis , C. parap juan a is, C. dubli jamari is), and Trich omona s vagin winston by Trans cript ion-M ediat ed Ampli ficat ion (TMA) . Not Available [facility] (Lab) [address], [place], [address], 01/05/2025 08:57:21 01/03/2001/02/2025 urina lysis , dipst ick Leukocytes trace Not Available [facility] [address], [place], [address], 01/02/2025 11:23:03 01/03/2001/02/2025 urina lysis , dipst ick Nitrite neg Not Available [place] [address], [place], [address], 01/02/2025 11:23:03 01/03/2001/02/2025 urina lysis , dipst ick Urobilinogen norm Not Available [facility] [address], [place], [address], 01/02/2025 11:23:03 01/03/2001/02/2025 urina lysis , dipst ick Protein trace Not Available [place] [address], [place], [address], 01/02/2025 11:23:03 01/03/2001/02/2025 urina lysis , dipst ick pH 7 Not Available [place] [address], [place], [address], 01/02/2025 11:23:03 01/03/20 25 01/02/2025 urina lysis , dipst ick Blood ++ Not Available [place] [address], [place], [address], 01/02/2025 11:23:03 01/03/2001/02/2025 urina lysis , dipst ick Specific Ucon 1.070 Not Available Dalia benavidez [address], [place], [address], 01/02/2025 11:23:03 01/03/2001/02/2025 urina lysis , dipst ick Ketone trace Not Available [place] [address], [place], [address], 01/02/2025 11:23:03 01/03/2001/02/2025 urina lysis , dipst ick Bilirubin + Not Available [facility] [address], [place], [address], 01/02/2025 11:23:03 01/03/2001/02/2025 urina lysis , dipst ick Glucose neg Not Available [place] [address], [place], [address], 01/02/2025 11:23:03 01/03/2001/02/2025 urina lysis , dipst ick Appearance clear Not Available Tianna pear[facility] [address], [place], [address], 01/02/2025 11:23:03 01/03/2001/02/2025 urina lysis , dipst ick Color yellow Not Available [place] [address], [place], [address], 01/02/2025 11:23:03 01/28/20 25 01/27/2025 HEMOG LOBIN (HGB) HGB 12.0 g/dL (based on docume nted legal sex) 11.6-1 5.4 Not Available [facility] (Lab) [address], [place], [address], 01/28/2025 12:35:48 01/28/20 25 01/27/2025 HEMAT OCRIT (HCT) HCT 35.8 % (based on docume nted legal sex) 34.0-4 5.0 Not Available [facility] (Lab) [address], [place], [address], 01/28/2025 12:35:48 01/28/20 25 01/27/2025 GTT - GESTA OBEY L SCREE N, ACOG OB glucose, 1 hour screen 105 mg/dL 70-[address] [facility] (Lab) [address], [place], [address], 01/28/2025 12:35:49 01/28/20 25 01/27/2025 HIV 1/2 ANTIG EN/AN TIBOD Y, REFLE X CONFI RMATI ON HIV antigen/anti body Nonrea ctive nonrea ctive HIV-1 antig en and HIV-1 /HIV- 2 antib odies were not detec manisha. No labor atory evide nce of HIV infec tion. Not Available [facility] (Lab) [address], [place], [address], 01/28/2025 12:35:49 01/28/20 25 01/27/2025 RPR SCREE N, REFLE X TITER /CONF IRMAT ION RPR qualitative Nonrea ctive nonrea ctive Not Available [facility] (Lab) [address], [place], [address], 01/28/2025 12:35:50 10/01/19 25 09/30/2024 US, obste tric, nucha l trans lucen cy No observ ation record ed. [email or web address] [place] [address], [place], [address], 09/30/2024 13:22:32 10/01/19 25 09/30/2024 US, obste tric, nucha l trans lucen cy No observ ation record ed. [email or web address] [place] [address], [place], [address], 10/03/2024 17:35:49 11/27/19 25 11/26/2024 US, obste tric, 2nd or 3rd trime ster No observ ation record ed. [email or web address] [place] [address], [place], [address], 11/26/2024 18:48:44 11/27/19 25 11/26/2024 US, obste tric, 2nd or 3rd trime ster No observ ation record ed. RODRIGO [place] [address], [place], [address], 11/26/2024 20:56:33 11/27/19 25 11/26/2024 US, obste tric, 2nd or 3rd trime ster No observ ation record ed. RODRIGO [place] [address], [place], [address], 11/26/2024 20:56:34 02/26/20 25 02/25/2025 US, obste tric, follo w-up No observ ation record ed. [email or web address] [place] [address], [place], [address], 02/25/2025 13:29:09 02/26/20 25 02/25/2025 US, obste tric, follo w-up No observ ation record ed. RODRIGO [place] [address], [place], [address], 02/28/2025 16:38:30 03/02/20 25 03/01/2025 imagi ng/di agnos tic resul t No observ ation record ed. [facility] [address], [place], [address], 03/02/2025 16:17:21 Result Notes None recorded. Problems Name Problem SNOMED Code Status Onset Date Resolution Date Notes Provider Name and Address Organization Details Recorded Time 20106746 Active 025 Natalia Villanueva null, [facility] 5 10:12:39 Acute cystitis 15321822 Active 025 CAITIE at 20 weeks BONITA RAMAN MD [address], [place], [address], [facility] 12:45:20 Problem [...] and Address Organization Details Last Updated DateTime 01/27/2025 167.64 cm 27.8 kg/m2 88 % 20599.8 9 g 114/80 mm[Hg] Lilly Michelle [facility] 10:39:41 Social History Question Answer Notes LastModified by Organizat ion Details LastModified Time Tobacco Smoking Status Never Smoker MANINDER Rogel alvaro [facility] 09/02/2024 17:29:38 Do You Have An Advance Directive? No [email or web address] Information n ot available 09/02/2024 If You Are , What Was Your Level Of Alcohol Consumption Prior To ? None [email or web address] Information not available 09/02/2024 Are You Blind Or Do You Have Difficulty Seeing? No [email or web address] Information n ot available 09/02/2024 What Is Your Level Of Caffeine Consumption? None [email or web address] Information not available 09/02/2024 In The 14 Days Before Symptom Onset, Have You Had Close Contact With A Laboratory-confirm ed COVID-19 While That Case Was Ill? No Information n ot available 09/02/2024 In The 14 Days Before Symptom Onset, Have You Had Close Contact With A Person Who Is Under Investigation For COVID-19 While That Person Was Ill? No [email or web address] Information not available 09/02/2024 Have You Been To An Area Known To Be High Risk For COVID-19? No [email or web address] Information not available 09/02/2024 Are You Deaf Or Do You Have Serious Difficulty Hearing? No Information not available 09/02/2024 What Type Of Diet Are You Following? REGULAR Information n ot available 09/02/2024 What Is The Highest Grade Or Level Of School You Have Completed Or The Highest Degree You Have Received? MM10282-3 [email or web address] Information not available 09/02/2024 Are There Any Guns Present In Your Home? No [email or web address] Information not available 09/02/2024 Do You Use Your Seat Belt Or Car Seat Routinely? Yes [email or web address] Information not available 09/02/2024 Are You Sexually Active? Yes [email or web address] Information not available 09/02/2024 Do You Have Smoke And Carbon Monoxide Detectors In Your Home? Yes [email or web address] Information not available 09/02/2024 Do You Use Sunscreen Routinely? Yes [email or web address] Information not available 09/02/2024 Has Tobacco Cessation Counseling Been Provided? No [email or web address] Information not available 09/02/2024 Do You Have Difficulty Walking Or Climbing Stairs? No [email or web address] Information not available 09/02/2024 How Many Years Have You Used E-cigarettes Or Vape? 3 [email or web address] Information not available 09/02/2024 Sex: Unknown Functional Status Question Answer Note LastModified by Organizat ion Details LastModified Time Do you use any illicit or recreational drugs? No [email or web address] Information not available 09/02/2024 Do you or have you ever used any other forms of tobacco or nicotine? Yes [email or web address] Information not available 09/02/2024 What is your level of alcohol consumption? None Information not available 09/02/2024 Do you or have you ever used smokeless tobacco? Never used smokeless tobacco [email or web address] Information not available 09/02/2024 Are you currently employed? No [email or web address] Information not available 09/02/2024 Are you able to walk independently without assistance or assistive devices? YESWOREST [email or web address] Information not available 09/02/2024 Are you able to care for yourself independently? Yes [email or web address] Information not available 09/02/2024 Do you have difficulty dressing, bathing, grooming, or toileting? Yes [email or web address] Information not available 09/02/2024 Do you or have you ever used e-cigarettes or vape? Current user of electronic cigarettes [email or web address] Information not available 09/02/2024 What is your exercise level? None [email or web address] Information not available 09/02/2024 Mental Status Question Answer Note LastModified by Organization D etails LastModified Time Do you feel stressed (tense, restless, nervous, or anxious, or unable to sleep at night)? [id number] [email or web address] Information not available 09/02/2024 Family History Relationship Description Onset Age of this Age Resolved Age Notes LastModified by Organization Details LastModified Time Mother Malignant neoplasm of breast [email or web address] Not available 2024 17:29:18 Maternal Grandmother Malignant neoplasm of lung [email or web address] Not available 2024 17:29:27 Medical History Condition Response Allergies (Food, seasonal, environmental ) N Other N Drug/Latex Allergies/Reactions N Blood Transfusion N Breast Cancer N Dermatologic Disorders N Lung Disease N Defects or Inherited Disease N Breast Problem N Gestational Diabetes N Hematologic disorders N Anesthesia Complications N History of STI N Deep Vein Thrombosis N Polycystic ovary syndrome N Anxiety Disorder N Autoimmune disease N Arthritis N Polyps N Infertility N Acid Reflux (GERD) N History of abnormal pap N Cancer N Varicosities N Stroke N [...] ICD10 Code Diagnosis IMO Codes Diagnosis Note [id number] Swathi Hodge CNM [place] [address] [address] 01/02/2025 10:55:35 01/02/2025 11:18:13 Vaginal discharge 992092249 N89.8 79053 Delay when starting to pass urine 7491900 R39.11 758191 Urinary symptoms 5843818 08 R39.9 [id number] BONITA RAMAN MD [place] [address] [address] 01/27/2025 10:28:49 01/27/2025 11:31:59 care status 167287532 Z34.83 [id number] - continue [facility] Health Concerns Section Related Observation LastModified by Organization Detai ls LastModified Time None Recorded Concern Status LastModified by Organization Details LastModified Time None Recorded Payers Encounter Date Sequence Insurance Name Policy Number Policy Snowden Covered Member ID Snowden Member ID Guarantor Name 01/27/2025 1 [facility] (MEDICAID HMO) [id number] Opal Spear [id number] Opal Spear Notes Date Note Type Note Provider Name and Address Organization Details Recorded Time 01/27/2025 text/html Generic HPI TemplateReported by Patient BONITA RAMAN MD [address], [place], [address], [facility] 01/27/2025 11:08:08 OBGyn Episode Ob Episode Information Episode Created Date Number of Fetuses Patient Bloodtype Patient rh Status Prepregnancy Weight lbs Domestic Partner Domestic Partner Phone Father Name Correction Officer [place] [facility] Status 10/01/19 25 1 A Positive 137 Akash vann OPEN Fetus Data First Name Last Name Admitted to NICU Weight (g) Sex Living Outcome Pediatric Complications Fetus ID Race Codes Race Delivery Type [id number] Problems Problem Notes Problem Name Start Date End Date Resolution Snomed Code Not e Acute cystitis 11/26/2024 [id number] CAITIE at 20 weeks Wale Calculation Initial [...] Sound Latest Days Gestation 11/27/19 25 19 [email or web address] 09/30/2024 04/15/19 26 4 Pre-iveth Flowsheet Flowsheet Date 09/30/2024 Demarco Score Blood Edema Fundus Height Fundus Units Glucose Ketones Leukocytes Nitrite Labor Signs Protein Cervic Dilation Cervic Effacement Cervic Station Type Weight in lbs Pre/Post Dialysis Refused Weight 138.479886666416 BP Diastolic BP Location Tested BP Systolic BP Type 80 L arm 127 sitting Fetus Heart Rate Present A 164 Fetus Movement Comments Patient presents to [facility] care. otherwise uncomplicated. No nausea or cramping. NT/NB wnl today, desires NIPT. Will draw today with new OB labs. RTC 4 weeks for routine care. Flowsheet Date 10/28/2024 Demarco Score Blood Edema Fundus Height Fundus Units Glucose Ketones Leukocytes Nitrite Labor Signs Protein Cervic Dilation Cervic Effacement Cervic Station Type Weight in lbs Pre/Post Dialysis Refused Weight 146.220869900872 BP Diastolic BP Location Tested BP Systolic BP Type 73 L arm 115 sitting Fetus Heart Rate Present A 155 Fetus Movement Comments Doing well, pain improved, w as seen at [facility] for back pain and was diagnosed with [...] Type Weight in lbs Pre/Post Dialysis Refused 156.663549931236 BP Diastolic BP Location Tested BP Systolic [...] Weight in lbs Pre/Post Dialysis Refused Weight 169.246366329751 BP Diastolic BP Location Tested BP Systolic [...] Weight in lbs Pre/Post Dialysis Refused Weight 167.028479962492 BP Diastolic BP Location Tested BP Systolic [...] Weight in lbs Pre/Post Dialysis Refused Weight 172.110401176105 BP Diastolic BP Location Tested BP Systolic [...] Weight in lbs Pre/Post Dialysis Refused Weight 177.295778782454 BP Diastolic BP Location Tested BP Systolic [...] Type Weight in lbs Pre/Post Dialysis Refused 181.233773726885 BP Diastolic BP Location Tested BP Systolic [...] Weight in lbs Pre/Post Dialysis Refused Weight 183.562987144105 BP Diastolic BP Location Tested BP Systolic [...] Weight in lbs Pre/Post Dialysis Refused Weight 187.603737487312 BP Diastolic BP Location Tested BP Systolic [...]
--- OUTSIDE RECORDS SUMMARY | 2025-03-22 17:54 | XMS_ITS | Data Portability ---
Author Organization [facility] [place] Address [address] [place] [address] Assessment No assessment recorded. Plan of Treatment [...] US, obstetri c, follow-u p 2024 025 [email or web address] [place] [facility] [address], [place], [address], 02/27/2025 11:02:29 Medication Orders None recorded . Patient TargetsNo targets recorded. Patient InstructionsNo instructions recorded. Reason for Referral None Reported. Results Created Date Observation Date Name Description Value Unit Range Abnormal Flag Note LastModifiedBy Organization Detail LastModifiedTime 01/28/2001/27/2025 HEMOG LOBIN (HGB) HGB 12.0 g/dL (based on docume nted legal sex) 11.6-1 5.4 Not Available [facility] (Lab) [address], [place], [address], 01/28/2025 12:35:48 01/28/20 25 01/27/2025 HEMAT OCRIT (HCT) HCT 35.8 % (based on docume nted legal sex) 34.0-4 5.0 Not Available [facility] (Lab) [address], [place], [address], 01/28/2025 12:35:48 01/28/20 25 01/27/2025 GTT - GESTA OBEY L SCREE N, ACOG OB glucose, 1 hour screen 105 mg/dL 70-135 Not Available [facility] (Lab) [address], [place], [address], 01/28/2025 12:35:49 01/28/20 25 01/27/2025 HIV 1/2 ANTIG EN/AN TIBOD Y, REFLE X CONFI RMATI ON HIV antigen/anti body Nonrea ctive nonrea ctive HIV-1 antig en and HIV-1 /HIV- 2 antib odies were not detec manisha. No labor atory evide nce of HIV infec tion. Not Available [facility] (Lab) [address], [place], [address], 01/28/2025 12:35:49 01/28/20 25 01/27/2025 RPR SCREE N, REFLE X TITER /CONF IRMAT ION RPR qualitative Nonrea ctive nonrea ctive Not Available [facility] (Lab) [address], [place], [address], 01/28/2025 12:35:50 02/26/20 25 02/25/2025 US, angelina gunno w-up No observ ation record ed. [facility] [address], [place], [address], 02/25/2025 13:29:09 02/26/20 25 02/25/2025 US, barry gomez follo w-up No observ ation record ed. RODRIGO [address] [address], [place], [address], 02/28/2025 16:38:30 03/02/20 25 03/01/2025 asimi ng/di caryl tic resul t No observ ation record ed. [facility] [address], [place], [address], 03/02/2025 16:17:21 Result Notes None recorded. Problems Name Problem SNOMED Code Status Onset Date Resolution Date Notes Provider Name and Address Organization Details Recorded Time 44100099 Active 025 Natalia Villanueva [facility], [facility] 5 10:12:39 Acute cystitis 47667354 Active 025 CAITIE at 20 weeks BONITA RAMAN MD [address], [place], [address], [facility] 12:45:20 Problem Notes None recorded. Medical [...] Body height Body mass index (BMI) Body weight Systolic And Diastolic Provider Name and Address Organization Details Last Updated DateTime 02/11/2025 167.64 cm 28.6 kg/m2 05373.85 g 112/73 mm[Hg] [facility] 02/11/2025 11:58:21 Date Recorded Body weight Body mass index (BMI) Body height Systolic And Diastolic Provider Name and Address Organization Details Last Updated DateTime 02/25/2025 19383.218 97 g 29.2 kg/m2 167.64 cm 121/75 mm[Hg] Lilly [facility] 02/25/2025 10:50:14 Date Recorded Body height Body mass index (BMI) Body weight Systolic And Diastolic Provider Name and Address Organization Details Last Updated DateTime 03/11/2025 167.64 cm 29.5 kg/m2 94313.4 g 126/86 mm[Hg] LEONARDO VITALIY [facility] 03/11/2025 14:26:21 Date Recorded Body height Body mass index (BMI) Body weight Systolic And Diastolic Provider Name and Address Organization Details Last Updated DateTime 03/20/2025 167.64 cm 30.2 kg/m2 89989.77 g 129/79 mm[Hg] Lilly [facility] 03/20/2025 11:29:20 Social History Question Answer Notes LastModified by Organizat ion Details LastModified Time Tobacco Smoking Status Never Smoker [facility] 09/02/2024 17:29:38 Do You Have An Advance Directive? No [email or web address] Information n ot available 09/02/2024 If You Are , What Was Your Level Of Alcohol Consumption Prior To ? None [email or web address] Information not available 09/02/2024 Are You Blind Or Do You Have Difficulty Seeing? No [email or web address] Information n ot available 09/02/2024 What Is Your Level Of Caffeine Consumption? None [email or web address] Information not available 09/02/2024 In The 14 Days Before Symptom Onset, Have You Had Close Contact With A Laboratory-confirm ed COVID-19 While That Case Was Ill? No [email or web address] Information n ot available 09/02/2024 In The 14 Days Before Symptom Onset, Have You Had Close Contact With A Person Who Is Under Investigation For COVID-19 While That Person Was Ill? No [email or web address] Information not available 09/02/2024 Have You Been To An Area Known To Be High Risk For COVID-19? No Information not available 09/02/2024 Are You Deaf Or Do You Have Serious Difficulty Hearing? No Information not available 09/02/2024 What Type Of Diet Are You Following? REGULAR [email or web address] Information n ot available 09/02/2024 What Is The Highest Grade Or Level Of School You Have Completed Or The Highest Degree You Have Received? [id number] Information not available 09/02/2024 Are There Any Guns Present In Your Home? No Information not available 09/02/2024 Do You Use Your Seat Belt Or Car Seat Routinely? Yes Information not available 09/02/2024 Are You Sexually Active? Yes Information not available 09/02/2024 Do You Have Smoke And Carbon Monoxide Detectors In Your Home? Yes Information not available 09/02/2024 Do You Use Sunscreen Routinely? Yes [email or web address] Information not available 09/02/2024 Has Tobacco Cessation Counseling Been Provided? No Information not available 09/02/2024 Do You Have Difficulty Walking Or Climbing Stairs? No [email or web address] Information not available 09/02/2024 How Many Years Have You Used E-cigarettes Or Vape? 3 [email or web address] Information not available 09/02/2024 Sex: Unknown Functional Status Question Answer Note LastModified by Organizat ion Details LastModified Time Do you use any illicit or recreational drugs? No [email or web address] Information not available 09/02/2024 Do you or have you ever used any other forms of tobacco or nicotine? Yes Information not available 09/02/2024 What is your level of alcohol consumption? None [email or web address] Information not available 09/02/2024 Do you or have you ever used smokeless tobacco? Never used smokeless tobacco [email or web address] Information not available 09/02/2024 Are you currently employed? No [email or web address] Information not available 09/02/2024 Are you able to walk independently without assistance or assistive devices? YESWOREST [email or web address] Information not available 09/02/2024 Are you able to care for yourself independently? Yes [email or web address] Information not available 09/02/2024 Do you have difficulty dressing, bathing, grooming, or toileting? Yes Information not available 09/02/2024 Do you or have you ever used e-cigarettes or vape? Current user of electronic cigarettes Information not available 09/02/2024 What is your exercise level? None [email or web address] Information not available 09/02/2024 Mental Status Question Answer Note LastModified by Organization D etails LastModified Time Do you feel stressed (tense, restless, nervous, or anxious, or unable to sleep at night)? [id number] [email or web address] Information not available 09/02/2024 Family History Relationship Description Onset Age of this Age Resolved Age Notes LastModified by Organization Details LastModified Time Mother Malignant neoplasm of breast [email or web address] Not available 2024 17:29:18 Maternal Grandmother Malignant neoplasm of lung [email or web address] Not available 2024 17:29:27 Medical History Condition [...] ICD10 Code Diagnosis IMO Codes Diagnosis Note [id number] BONITA RAMAN MD [place] [address] [address] 09/02/2024 16:43:56 09/02/2024 17:07:32 Uterine size for dates discrepancy 616733529 O26.841 Z3A.01 5559899 [id number] BONITA RAMAN MD [place] [address] [address] 09/02/2024 16:45:49 09/03/2024 09:16:33 test positive 022599383 Z32.01 [id number] 1. Exam today within normal limits.2. Ultrasound today confirms GA and viability. EDC . GC/Clamydi a testing done: will f/u as indicated. 4. ACOG guidelines and plan of care for reviewed with patient. All questions answered.5 . Return to office at 12 weeks for new OB visit6. Will need new OB labs at next visit.7. Genetic screening: desires. [id number] BONITA RAMAN MD [place] [address],[place] [address] 09/30/2024 09:31:36 09/30/2024 10:11:54 screening 054737686 Z36.82 Z3A.11 9614281781 [id number] BONITA RAMAN MD [place] [address],[place] [address] 09/30/2024 09:31:48 09/30/2024 10:43:45 care status 615021860 Z34.81 41346914 [id number] BONITA RAMAN MD [place] [address],[place] [address] 10/28/2024 11:35:35 10/28/2024 12:10:22 care status 978587498 Z34.82 23911704 - continue [facility] [id number] Rod Franklin MD [place] [address],[place] [address] 11/26/2024 11:05:29 11/26/2024 12:06:45 Ultrasound scan - obstetric 117072166 Z36.3 Z3A.20 77950 [id number] BONITA RAMAN MD [place] [address] [address] 11/26/2024 11:06:12 11/26/2024 12:58:53 care status 689282212 Z34.82 64886302 - continue [facility] [id number] BONITA RAMAN MD [place] [address] [address] 12/24/2024 12:07:30 12/24/2024 12:43:03 screening 114400119 Z36.89 Gestation period, 24 weeks 777210772 Z3A.24 8693652 - continue [facility] [id number] Swathi Hodge [facility] [address],[place] [address] 01/02/2025 10:55:35 01/02/2025 11:18:13 Vaginal discharge 566554883 N89.8 58074 Delay when starting to pass urine 8094065 R39.11 376461 Urinary symptoms 8162551 08 R39.9 38004731 [id number] MD Carl MARK [address],[place] [address] 01/27/2025 10:28:49 01/27/2025 11:31:59 care status 906880303 Z34.83 22682258 - continue [facility] [id number] MD Carl MARK [address] [address] 02/11/2025 11:38:35 02/11/2025 12:12:44 Breech presentation 0822401 O32.1XX0 87754346 - repeat growth/pre sentation US next visit Gestation period, 31 weeks 70255948 Z3A.31 4879234 - continue [facility] [id number] BONITA RAMAN MD [place] [address],[place] [address] 02/25/2025 10:07:29 02/25/2025 10:48:49 Observational assessment 443806906 Z03.74 Z3A.33 1884357 [id number] BONITA RMAAN MD [place] [address],[place] [address] 02/25/2025 10:09:01 02/25/2025 10:59:28 care status 420155860 Z34.83 44093674 - continue [facility] [id number] BONITA RAMAN MD [place] [address],[place] [address] 03/11/2025 14:20:32 03/11/2025 14:58:25 Acute cystitis 13255640 N30.00 9976928 - completed antibiotic s today- symptoms resolved Gestation period, 35 weeks 46224236 Z3A.35 6946911 - continue [facility] [id number] BONITA RAMAN MD [place] [address],[place] [address] 03/20/2025 11:23:04 03/20/2025 17:05:47 care status 769229293 Z34.83 07186442 - continue [facility] Health Concerns Section Related Observation LastModified by Organization Detai ls LastModified Time None Recorded Concern Status LastModified by Organization Details LastModified Time None Recorded Advance Directives Directive N: Payers Insurance Date Sequence Insurance Name Policy Number Policy Snowden Covered Member ID Snowden Member ID Guarantor Name 02/25/2025 1 [place] [employer] [place] [employer] Opal Spear [id number] Opal Spear 02/25/2025 1 [facility] [id number] Opal Spear [id number] Opal Spear 03/20/2025 1 [facility] (MEDICAID HMO) [id number] Opal Spear [id number] Opal Spear Notes Date Note Type Note Provider Name and Address Organization Details Recorded Time 02/11/2025 text/html Generic HPI TemplateReported by Patient BONITA RAMAN MD [address], [place], [address], [facility] 02/11/2025 12:11:01 02/25/2025 text/html Generic HPI TemplateReported by Patient BONITA RAMAN MD [address], [place], [address], [facility] 02/25/2025 10:58:08 03/11/2025 text/html Generic HPI TemplateReported by Patient BONITA RAMAN MD [address], [place], [address], [facility] 03/11/2025 14:55:12 03/20/2025 text/html Generic HPI TemplateReported by Patient BONITA RAMAN MD [address], [place], [address], [facility] 03/20/2025 11:55:30 OBGyn Episode Ob Episode Information Episode Created Date Number of Fetuses Patient Bloodtype Patient rh Status Prepregnancy Weight lbs Domestic Partner Domestic Partner Phone Father Name Toy Assembler Status 10/01/19 25 1 A Positive 137 Akash Guevara l OPEN Fetus Data First Name Last Name Admitted to NICU Weight (g) Sex Living Outcome Pediatric Complications Fetus ID Race Codes Race Delivery Type [id number] Problems Problem Notes Problem Name Start Date End Date Resolution Snomed Code Not e Acute cystitis 11/26/2024 01705976 CAITIE at 20 weeks Wale Calculation Initial [...] Sound Latest Days Gestation 11/27/19 25 19 [email or web address] 09/30/2024 04/15/19 26 4 Pre- Flowsheet Flowsheet Date 09/30/2024 Demarco Score Blood Edema Fundus Height Fundus Units Glucose Ketones Leukocytes Nitrite Labor Signs Protein Cervic Dilation Cervic Effacement Cervic Station Type Weight in lbs Pre/Post Dialysis Refused Weight 138.242362108684 BP Diastolic BP Location Tested BP Systolic BP Type 80 L arm 127 sitting Fetus Heart Rate Present A 164 Fetus Movement Comments Patient presents to [facility] care. otherwise uncomplicated. No nausea or cramping. NT/NB wnl today, desires NIPT. Will draw today with new OB labs. RTC 4 weeks for routine care. Flowsheet Date 10/28/2024 Demarco Score Blood Edema Fundus Height Fundus Units Glucose Ketones Leukocytes Nitrite Labor Signs Protein Cervic Dilation Cervic Effacement Cervic Station Type Weight in lbs Pre/Post Dialysis Refused Weight 146.194167890890 BP Diastolic BP Location Tested BP Systolic BP Type 73 L arm 115 sitting Fetus Heart Rate Present A 155 Fetus Movement Comments Doing well, pain improved, w as seen at [facility] for back pain and was diagnosed with [...] Type Weight in lbs Pre/Post Dialysis Refused 156.770693314969 BP Diastolic BP Location Tested BP Systolic [...] Weight in lbs Pre/Post Dialysis Refused Weight 169.967904907677 BP Diastolic BP Location Tested BP Systolic [...] Weight in lbs Pre/Post Dialysis Refused Weight 167.687908124280 BP Diastolic BP Location Tested BP Systolic [...] Weight in lbs Pre/Post Dialysis Refused Weight 172.703773300084 BP Diastolic BP Location Tested BP Systolic [...] Weight in lbs Pre/Post Dialysis Refused Weight 177.477836131266 BP Diastolic BP Location Tested BP Systolic [...] Type Weight in lbs Pre/Post Dialysis Refused 181.806946569639 BP Diastolic BP Location Tested BP Systolic [...] Weight in lbs Pre/Post Dialysis Refused Weight 183.823623181430 BP Diastolic BP Location Tested BP Systolic [...] Weight in lbs Pre/Post Dialysis Refused Weight 187.418086636302 BP Diastolic BP Location Tested BP Systolic [...] Domestic Partner Domestic Partner Phone Father Name Toy Assembler Status 09/03/19 25 1 CLOSED Fetus Data First Name Last Name Admitted to NICU Weight (g) Sex Living Outcome Pediatric Complications Fetus ID Race Codes Race Delivery Type , Induced [id number] Wale Calculation Initial Wale Date Initial Exam [...]
--- OUTSIDE RECORDS SUMMARY | 2025-03-22 17:54 | XMS_ITS | Continuity of Care Document ---
Author Organization [facility] [place], [facility] Address [address] [place] [address] Assessment No assessment recorded. Plan of Treatment [...] normal Not Available Liana Perez[address], [place], [address], 10/06/2024 23:31:19 10/07/19 25 10/06/2024 [UNIT Y] ANEUP LOIDY NIPT 22Q11.2 microdeletio n LOW RISK <1 in 10,000 normal Not Available Jono wright [address], [place], [address], 10/06/2024 23:31:19 10/07/19 25 10/06/2024 [UNIT Y] ANEUP LOIDY NIPT sex chromosome aneuploidy NOT DETECT ED normal Not Available [facility] [address], [place], [address], 10/06/2024 23:31:19 10/07/19 25 10/06/2024 [UNIT Y] ANEUP LOIDY NIPT monosomy X LOW RISK <1 in 10,000 normal Not Available [facility] [address], [place], [address], 10/06/2024 23:31:19 10/07/19 25 10/06/2024 [UNIT Y] ANEUP LOIDY NIPT trisomy 13 LOW RISK <1 in 10,000 normal Not Available [facility] [address], [place], [address], 10/06/2024 23:31:19 10/07/19 25 10/06/2024 [UNIT Y] ANEUP LOIDY NIPT trisomy 18 LOW RISK <1 in 10,000 normal Not Available [facility] [address], [place], [address], 10/06/2024 23:31:19 10/07/19 25 10/06/2024 [UNIT Y] ANEUP LOIDY NIPT trisomy 21 LOW RISK <1 in 10,000 normal Not Available [facility] [address], [place], [address], 10/06/2024 23:31:19 10/07/19 25 10/06/2024 [UNIT Y] ANEUP LOIDY NIPT sex FEMALE normal Not Available [facility] [address], [place], [address], 10/06/2024 23:31:19 10/07/19 25 10/06/2024 [UNIT Y] ANEUP LOIDY NIPT gestation SINGLE TON normal Not Available [facility] [address], [place], [address], 10/06/2024 23:31:19 10/07/19 25 10/06/2024 [UNIT Y] ANEUP EMY NIPT for detailed report, see pdf See PDF normal Not Available [facility] [address], [place], [address], 10/06/2024 23:31:19 10/13/19 25 10/12/2024 [UNIT Y] JENIFER Parra sickle cell disease/beta -thalassemia /hemoglobino pathies carrier screen NEGATI VE normal Not Available [facility] [address], [place], [address], 10/12/2024 10:46:31 10/13/19 25 10/12/2024 [UNIT Y] JENIFER SINAI Parra alpha-thalas semia carrier screen NEGATI VE normal Not Available [facility] [address], [place], [address], 10/12/2024 10:46:31 10/13/19 25 10/12/2024 [UNIT Y] JENIFER SINAI Parra cystic fibrosis carrier screen NEGATI VE normal Not Available [facility] [address], [place], [address], 10/12/2024 10:46:31 10/13/19 25 10/12/2024 [UNIT Y] JENIFER Parra spinal muscular atrophy carrier screen NEGATI VE 2 SMN1 copies , SNP not presen t normal Not Available [facility] [address], [place], [address], 10/12/2024 10:46:31 10/13/19 25 10/12/2024 [UNIT Y] JENIFER Parra for detailed report, see pdf See PDF normal Not Available [facility] [address], [place], [address], 10/12/2024 10:46:31 10/01/19 25 09/30/2024 CBC W/DIF F WBC 5.6 10'3/ uL 3.5-10 .5 Not Available [facility] (Lab) [address], [place], [address], 10/01/2024 11:38:10/01/19 25 09/30/2024 CBC W/DIF F RBC 3.95 10'6/ uL (based on docume nted legal sex) 3.80-5 .20 Not Available [facility] (Lab) [address], [place], [address], 10/01/2024 11:38:09 10/01/19 25 09/30/2024 CBC W/DIF F HGB 12.5 g/dL (based on docume nted legal sex) 11.6-1 5.4 Not Available [facility] (Lab) [address], [place], [address], 10/01/2024 11:38:10/01/19 25 09/30/2024 CBC W/DIF F HCT 37.1 % (based on docume nted legal sex) 34.0-4 5.0 Not Available [facility] (Lab) [address], [place], [address], 10/01/2024 11:38:10/01/1909/30/2024 CBC W/DIF F MCV 93.9 fL 80.0-9 9.0 Not Available [facility] (Lab) [address], [place], [address], 10/01/2024 11:38:10/01/1909/30/2024 CBC W/DIF F MCH 31.6 pg 27.0-3 4.0 Not Available [facility] (Lab) [address], [place], [address], 10/01/2024 11:38:10/01/1909/30/2024 CBC W/DIF F MCHC 33.7 g/dL 32.0-3 5.5 Not Available [facility] (Lab) [address], [place], [address], 10/01/2024 11:38:09 10/01/19 25 09/30/2024 CBC W/DIF F RDW 12.8 % 11.0-1 5.0 Not Available [facility] (Lab) [address], [place], [address], 10/01/2024 11:38:09 10/01/19 25 09/30/2024 CBC W/DIF F plt 198 10'3/ uL 150-40 0 Not Available [facility] (Lab) [address] [facility], [place], [address], 10/01/2024 11:38:09 10/01/1909/30/2024 CBC W/DIF F MPV 10.8 fL 8.8-12 .1 Not Available [facility] (Lab) [address], [place], [address], 10/01/2024 11:38:09 10/01/19 25 09/30/2024 CBC W/DIF F NRBC's 0.0 % 0.0 Not Available [facility] (Lab) [address] [facility], [place], [address], 10/01/2024 11:38:09 10/01/19 25 09/30/2024 CBC W/DIF F absolute NRBCs 0.0 10'3/ uL no refere nce range establ ished Not Available [facility] (Lab) [address] [facility], [place], [address], 10/01/2024 11:38:09 10/01/19 25 09/30/2024 CBC W/DIF F neutrophils 73.5 % 34.0-7 3.0 high Not Available [facility] (Lab) [address] [facility], [place], [address], 10/01/2024 11:38:09 10/01/19 25 09/30/2024 CBC W/DIF F lymphocytes 18.1 % 15.0-5 0.0 Not Available [facility] (Lab) [address], [place], [address], 10/01/2024 11:38:09 10/01/19 25 09/30/2024 CBC W/DIF F monocytes 6.4 % 1.0-15 .0 Not Available [facility] (Lab) [address], [place], [address], 10/01/2024 11:38:09 10/01/19 25 09/30/2024 CBC W/DIF F eosinophils 1.2 % 0.0-8. 0 Not Available [facility] (Lab) [address], [place], [address], 10/01/2024 11:38:09 10/01/19 25 09/30/2024 CBC W/DIF F basophils 0.4 % 0.0-2. 0 Not Available [facility] (Lab) [address], [place], [address], 10/01/2024 11:38:09 10/01/19 25 09/30/2024 CBC W/DIF [...] separ ately if prese nt. Not Available [facility] (Lab) [address], [place], [address], 10/01/2024 11:38:09 10/01/19 25 09/30/2024 CBC W/DIF F absolute neutrophils 4.1 10'3/ uL 1.5-8. 0 Not Available [facility] (Lab) [address], [place], [address], 10/01/2024 11:38:09 10/01/19 25 09/30/2024 CBC W/DIF F absolute lymphocytes 1.0 10'3/ uL 1.0-4. 0 Not Available [facility] (Lab) [address], [place], [address], 10/01/2024 11:38:10/01/1909/30/2024 CBC W/DIF F absolute monocytes 0.4 10'3/ uL 0.2-1. 0 Not Available [facility] (Lab) [address] [facility], [place], [address], 10/01/2024 11:38:10/01/1909/30/2024 CBC W/DIF F absolute eosinophils 0.1 10'3/ uL 0.0-0. 6 Not Available [facility] (Lab) [address], [place], [address], 10/01/2024 11:38:09 10/01/1909/30/2024 CBC W/DIF F absolute basophils 0.0 10'3/ uL 0.0-0. 3 Not Available [facility] (Lab) [address], [place], [address], 10/01/2024 11:38:10/01/1909/30/2024 CBC W/DIF F absolute immature [...] scott book. nm.or g/gen derx Not Available [facility] (Lab) [address], [place], [address], 10/01/2024 11:38:10/01/1909/30/2024 HEPAT ITIS B SURFA CE ANTIG EN hepatitis B surface antigen Non-re active non-re active This assay was perfo rmed using [employer] ratio n reage nts and test kits. Value s obtai tacho with other assay metho ds or kits canno t be used inter cronin eably . Not Available [facility] (Lab) [address], [place], [address], 10/01/2024 11:38:10 10/01/1909/30/2024 HIV 1/2 ANTIG EN/AN TIBOD Y, REFLE X CONFI RMATI ON HIV antigen/anti body Nonrea ctive nonrea ctive HIV-1 antig en and HIV-1 /HIV- 2 antib odies were not detec manisha. No labor atory evide nce of HIV infec tion. Not Available [facility] (Lab) [address], [place], [address], 10/01/2024 11:38:10 10/01/1909/30/2024 HEPAT ITIS C ANTIB ALISHA SCREE N, REFLE X TO CONFI RMATI ON hepatitis C antibody Non-re active non-re active Antib odies to HCV Not Detec manisha, does not exclu de the possi bilit y of expos ure to HCV. Not Available [facility] (Lab) [address], [place], [address], 10/01/2024 11:38:11 10/01/1909/30/2024 RUBEL LA IGG ANTIB ALISHA, QUANT rubella antibodies, IgG Reacti ve reacti ve Not Available [facility] (Lab) [address], [place], [address], 10/01/2024 11:38:11 10/01/19 25 09/30/2024 RUBEL LA IGG ANTIB ALISHA, QUANT rubella antibodies, IgG quant 12.5 IU/mL >=10 Non-r eacti ve (Non- Immun e) <10 IU/mL React adina (Immu ne) > or = 10 IU/mL Not Available [facility] (Lab) [address], [place], [address], 10/01/2024 11:38:11 10/01/19 25 09/30/2024 TYPE/ RH/SC REEN ABO/Rh type A POS Not Available [facility] (Lab) [address], [place], [address], 10/01/2024 11:38:12 10/01/1909/30/2024 TYPE/ RH/SC REEN antibody screen NEG Not Available [facility] (Lab) [address], [place], [address], 10/01/2024 11:38:12 10/01/1909/30/2024 TYPE/ RH/SC REEN exp date 2024 23:59 Not Available [facility] (Lab) [address], [place], [address], 10/01/2024 11:38:12 10/01/19 25 09/30/2024 HEMOG LOBIN [...] >8.0% Actio n sugge sted Not Available [facility] (Lab) [address], [place], [address], 10/01/2024 11:38:13 10/01/19 25 09/30/2024 RPR SCREE N, REFLE X TITER /CONF IRMAT ION RPR qualitative Nonrea ctive nonrea ctive Not Available [facility] (Lab) [address], [place], [address], 10/01/2024 11:38:13 10/01/1909/30/2024 CULTU RE: URINE result report SEE RESULT S BELOW Test: Cultu re: Urine Speci men Sourc e: Urine Voide d Speci men Type: Urine Speci men Date: 025 1011 Resul t Date: 2024 0559 Resul t Statu s: Final resul t Abnor mal: No Resul ting Lab: [facility] [address] [facility] [address] Tel: CULTU RE ----- ----- ----- --- No growt h in 1 day (dete ction level of 10,00 0 colon ies / ml.) Not Available [facility] (Lab) [address] [facility], [place], [address], 10/02/2024 07:03:32 10/01/19 25 09/30/2024 drug scree n, urine Amphetamines : negati ve Not Available [facility] [address], [place], [address], 09/30/2024 10:52:38 10/01/19 25 09/30/2024 drug scree n, urine Cannabinoids : positi ve Not Available [facility] [address], [place], [address], 09/30/2024 10:52:38 10/01/19 25 09/30/2024 drug scree n, urine Cocaine: negati ve Not Available [facility] [address], [place], [address], 09/30/2024 10:52:38 10/01/19 25 09/30/2024 drug scree n, urine Opiates: negati ve Not Available [facility] [address], [place], [address], 09/30/2024 10:52:38 10/01/19 25 09/30/2024 drug scree n, urine Phenocyclidi ne: negati ve Not Available [facility] [address], [place], [address], 09/30/2024 10:52:38 10/01/19 25 09/30/2024 drug scree n, urine Barbiturates : negati ve Not Available [facility] [address], [place], [address], 09/30/2024 10:52:38 10/01/19 25 09/30/2024 drug scree n, urine Benzodiazepi carla: negati ve Not Available [facility] [address], [place], [address], 09/30/2024 10:52:38 10/01/19 25 09/30/2024 drug scree n, urine Ethanol: negati ve Not Available [facility] [address], [place], [address], 09/30/2024 10:52:38 10/01/19 25 09/30/2024 drug scree n, urine Hallucinogen s: negati ve Not Available [facility] [address], [place], [address], 09/30/2024 10:52:38 10/01/19 25 09/30/2024 drug scree n, urine Inhalants: negati ve Not Available [facility] [address], [place], [address], 09/30/2024 10:52:38 10/01/19 25 09/30/2024 drug scree n, urine Anabolic Steroids: negati ve Not Available [facility] [address], [place], [address], 09/30/2024 10:52:38 11/27/19 25 11/26/2024 CULTU RE: URINE result report SEE RESULT S BELOW Test: Cultu re: Urine Speci men Sourc e: Urine Voide d Speci men Type: Urine Speci men Date: 025 1312 Resul t Date: 025 2207 Resul t Statu s: Final resul t Abnor mal: No Resul ting Lab: [facility] [address] [facility] [address] Tel: CULTU RE ----- ----- ----- --- No growt h in 1 day (dete ction level of 10,00 0 colon ies / ml.) Not Available [facility] (Lab) [address] [facility], [place], [address], 11/28/2024 13:32:03 11/27/19 25 11/26/2024 CT/GC AND TRICH OMONA S VAGIN WINSTON (RRNA ), URINE chlamydia trachomatis, PCR Negati ve negati ve Not Available [facility] (Lab) [address] [place], [address], 11/28/2024 13:32:04 11/27/19 25 11/26/2024 CT/GC AND TRICH OMONA S VAGIN WINSTON (RRNA ), URINE neisseria gonorrhoeae, PCR Negati ve negati ve Not Available [facility] (Lab) [address] [facility], [place], [address], 11/28/2024 13:32:04 11/27/19 25 11/26/2024 CT/GC AND TRICH OMONA S VAGIN WINSTON (RRNA ), URINE trichomonas vaginalis ribosomal RNA (rrna) Negati ve negati ve Not Available [facility] (Lab) [address] [place], [address], 11/28/2024 13:32:04 01/03/20 25 01/02/2025 CULTU RE: URINE result report SEE RESULT S BELOW Test: Cultu re: Urine Speci men Sourc e: Urine - Clean Catch Speci men Type: Urine Speci men Date: 01/02 1101 Resul t Date: 01/04 0616 Resul t Statu s: Final resul t Abnor mal: No Resul ting Lab: [facility] [address] [facility] [address] Tel: CULTU RE ----- ----- ----- --- Cultu re resul t (>=3 organ isms prese nt) indic ates possi ble conta minat ion. Repea t cultu re if sympt oms indic ate. Not Available [facility] (Lab) [address] [facility], [place], [address], 01/04/2025 07:17:57 01/03/2001/02/2025 WOMEN 'S HEALT H [...] or negat adina statu s. Not Available [facility] (Lab) [address] [place], [address], 01/05/2025 08:57:21 01/03/2001/02/2025 WOMEN 'S HEALT H SWAB, LUIS MANUEL jeanmarie species, tma Positi ve negati ve abnormal Not Available [facility] (Lab) [address] [place], [address], 01/05/2025 08:57:21 01/03/2001/02/2025 WOMEN 'S HEALT H SWAB, LUIS MANUEL jeanmarie glabrata, tma Negati ve negati ve Not Available [facility] (Lab) [address] [place], [address], 01/05/2025 08:57:21 01/03/2001/02/2025 WOMEN 'S HEALT H [...] Ampli ficat ion (TMA) . Not Available [facility] (Lab) [address], [place], [address], 01/05/2025 08:57:21 01/03/2001/02/2025 urina lysis , dipst ick Leukocytes trace Not Available [facility] [address], [place], [address], 01/02/2025 11:23:03 01/03/2001/02/2025 urina lysis , dipst ick Nitrite neg Not Available [place] [address], [place], [address], 01/02/2025 11:23:03 01/03/2001/02/2025 urina lysis , dipst ick Urobilinogen norm Not Available [facility] petros [address], [place], [address], 01/02/2025 11:23:03 01/03/2001/02/2025 urina lysis , dipst ick Protein trace Not Available [place] [address], [place], [address], 01/02/2025 11:23:03 01/03/2001/02/2025 urina lysis , dipst ick pH 7 Not Available [place] [address], [place], [address], 01/02/2025 11:23:03 01/03/20 25 01/02/2025 urina lysis , dipst ick Blood ++ Not Available [place] [address], [place], [address], 01/02/2025 11:23:03 01/03/2001/02/2025 urina lysis , dipst ick Specific [place] 1.070 Not Available Dalia benavidez [address], [place], [address], 01/02/2025 11:23:03 01/03/2001/02/2025 urina lysis , dipst ick Ketone trace Not Available [place] [address], [place], [address], 01/02/2025 11:23:03 01/03/2001/02/2025 urina lysis , dipst ick Bilirubin + Not Available [facility] [address], [place], [address], 01/02/2025 11:23:03 01/03/2001/02/2025 urina lysis , dipst ick Glucose neg Not Available [place] [address], [place], [address], 01/02/2025 11:23:03 01/03/2001/02/2025 urina lysis , dipst ick Appearance clear Not Available Tianna pearce [address], [place], [address], 01/02/2025 11:23:03 01/03/2001/02/2025 urina lysis , dipst ick Color yellow Not Available [place] [address], [place], [address], 01/02/2025 11:23:03 01/28/20 25 01/27/2025 HEMOG LOBIN (HGB) HGB 12.0 g/dL (based on docume nted legal sex) 11.6-1 5.4 Not Available [facility] (Lab) [address] [facility], [place], [address], 01/28/2025 12:35:48 01/28/20 25 01/27/2025 HEMAT OCRIT (HCT) HCT 35.8 % (based on docume nted legal sex) 34.0-4 5.0 Not Available [facility] (Lab) [address] [facility], [place], [address], 01/28/2025 12:35:48 01/28/20 25 01/27/2025 GTT - GESTA OBEY L SCREE N, ACOG OB glucose, 1 hour screen 105 mg/dL 70-135 Not Available [facility] (Lab) [address] [facility], [place], [address], 01/28/2025 12:35:49 01/28/20 25 01/27/2025 HIV 1/2 ANTIG EN/AN TIBOD Y, REFLE X CONFI RMATI ON HIV antigen/anti body Nonrea ctive nonrea ctive HIV-1 antig en and HIV-1 /HIV- 2 antib odies were not detec manisha. No labor atory evide nce of HIV infec tion. Not Available [facility] (Lab) [address] [facility], [place], [address], 01/28/2025 12:35:49 01/28/20 25 01/27/2025 RPR SCREE N, REFLE X TITER /CONF IRMAT ION RPR qualitative Nonrea ctive nonrea ctive Not Available [facility] (Lab) [address] [facility], [place], [address], 01/28/2025 12:35:50 10/01/19 25 09/30/2024 US, obste tric, nucha l trans lucen cy No observ ation record ed. [email or web address] [place] [address], [place], [address], 09/30/2024 13:22:32 10/01/19 25 09/30/2024 US, obste tric, nucha l trans lucen cy No observ ation record ed. [email or web address] [place] [address], [place], [address], 10/03/2024 17:35:49 11/27/19 25 11/26/2024 US, obste tric, 2nd or 3rd trime ster No observ ation record ed. [email or web address] [place] [address], [place], [address], 11/26/2024 18:48:44 11/27/19 25 11/26/2024 US, obste tric, 2nd or 3rd trime ster No observ ation record ed. RODRIGO [place] [address], [place], [address], 11/26/2024 20:56:33 11/27/19 25 11/26/2024 US, obste tric, 2nd or 3rd trime ster No observ ation record ed. RODRIGO [place] [address], [place], [address], 11/26/2024 20:56:34 02/26/20 25 02/25/2025 US, obste tric, follo w-up No observ ation record ed. [email or web address] [place] [address], [place], [address], 02/25/2025 13:29:09 02/26/20 25 02/25/2025 US, obste tric, follo w-up No observ ation record ed. RODRIGO [place] [address], [place], [address], 02/28/2025 16:38:30 03/02/20 25 03/01/2025 imagi ng/di agnos tic resul t No observ ation record ed. [facility] [address], [place], [address], 03/02/2025 16:17:21 Result Notes None recorded. Problems Name Problem SNOMED Code Status Onset Date Resolution Date Notes Provider Name and Address Organization Details Recorded Time 64714695 Active 025 Natalia Villanueva null, [facility] 10:12:39 Acute cystitis 37905806 Active 025 CAITIE at 20 weeks BONITA RAMAN MD [address], [place], [address], [facility] 12:45:20 Problem Notes None recorded. Medical [...] Updated DateTime 03/11/2025 167.64 cm 29.5 kg/m2 00668.4 g 126/86 mm[Hg] LEONARDO BURKS [facility] 03/11/2025 14:26:21 Social History Question Answer Notes LastModified by Organizat ion Details LastModified Time Tobacco Smoking Status Never Smoker [facility] 09/02/2024 17:29:38 Do You Have An Advance Directive? No [email or web address] Information n ot available 09/02/2024 If You Are , What Was Your Level Of Alcohol Consumption Prior To ? None [email or web address] Information not available 09/02/2024 Are You Blind Or Do You Have Difficulty Seeing? No [email or web address] Information n ot available 09/02/2024 What Is Your Level Of Caffeine Consumption? None [email or web address] Information not available 09/02/2024 In The 14 Days Before Symptom Onset, Have You Had Close Contact With A Laboratory-confirm ed COVID-19 While That Case Was Ill? No Information n ot available 09/02/2024 In The 14 Days Before Symptom Onset, Have You Had Close Contact With A Person Who Is Under Investigation For COVID-19 While That Person Was Ill? No [email or web address] Information not available 09/02/2024 Have You Been To An Area Known To Be High Risk For COVID-19? No [email or web address] Information not available 09/02/2024 Are You Deaf Or Do You Have Serious Difficulty Hearing? No [email or web address] Information not available 09/02/2024 What Type Of Diet Are You Following? REGULAR [email or web address] Information n ot available 09/02/2024 What Is The Highest Grade Or Level Of School You Have Completed Or The Highest Degree You Have Received? [id number] [email or web address] Information not available 09/02/2024 Are There Any Guns Present In Your Home? No [email or web address] Information not available 09/02/2024 Do You Use Your Seat Belt Or Car Seat Routinely? Yes [email or web address] Information not available 09/02/2024 Are You Sexually Active? Yes [email or web address] Information not available 09/02/2024 Do You Have Smoke And Carbon Monoxide Detectors In Your Home? Yes [email or web address] Information not available 09/02/2024 Do You Use Sunscreen Routinely? Yes [email or web address] Information not available 09/02/2024 Has Tobacco Cessation Counseling Been Provided? No [email or web address] Information not available 09/02/2024 Do You Have Difficulty Walking Or Climbing Stairs? No [email or web address] Information not available 09/02/2024 How Many Years Have You Used E-cigarettes Or Vape? 3 Information not available 09/02/2024 Sex: Unknown Functional Status Question Answer Note LastModified by Organizat ion Details LastModified Time Do you use any illicit or recreational drugs? No [email or web address] Information not available 09/02/2024 Do you or have you ever used any other forms of tobacco or nicotine? Yes [email or web address] Information not available 09/02/2024 What is your level of alcohol consumption? None [email or web address] Information not available 09/02/2024 Do you or have you ever used smokeless tobacco? Never used smokeless tobacco [email or web address] Information not available 09/02/2024 Are you currently employed? No [email or web address] Information not available 09/02/2024 Are you able to walk independently without assistance or assistive devices? YESWOREST [email or web address] Information not available 09/02/2024 Are you able to care for yourself independently? Yes [email or web address] Information not available 09/02/2024 Do you have difficulty dressing, bathing, grooming, or toileting? Yes Information not available 09/02/2024 Do you or have you ever used e-cigarettes or vape? Current user of electronic cigarettes [email or web address] Information not available 09/02/2024 What is your exercise level? None [email or web address] Information not available 09/02/2024 Mental Status Question Answer Note LastModified by Organization D etails LastModified Time Do you feel stressed (tense, restless, nervous, or anxious, or unable to sleep at night)? [id number] Information not available 09/02/2024 Family History Relationship Description Onset Age of this Age Resolved Age Notes LastModified by Organization Details LastModified Time Mother Malignant neoplasm of breast [email or web address] Not available 2024 17:29:18 Maternal Grandmother Malignant neoplasm of lung [email or web address] Not available 2024 17:29:27 Medical History Condition [...] ICD10 Code Diagnosis IMO Codes Diagnosis Note [id number] BONITA RAMAN MD [place] [address] [place] [address] 02/11/2025 11:38:35 02/11/2025 12:12:44 Breech presentation [id number] O32.1XX0 [id number] - repeat growth/pre sentation US next visit Gestation period, 31 weeks 17479510 Z3A.31 [id number] - continue PNV [id number] BONITA RAMAN MD [place] [address] [address] 02/25/2025 10:07:29 02/25/2025 10:48:49 Observational assessment [id number] Z03.74 Z3A.33 [id number] BONITA RAMAN MD [place] [address] [address] 02/25/2025 10:09:01 02/25/2025 10:59:28 care status [id number] Z34.83 [id number] - continue PNV [id number] BONITA RAMAN MD [place] [address] [address] 03/11/2025 14:20:32 03/11/2025 14:58:25 Acute cystitis [id number] N30.00 [id number] - completed antibiotic s today- symptoms resolved Gestation period, 35 weeks 64556627 Z3A.35 [id number] - continue PNV Health Concerns Section Related Observation LastModified by Organization Detai ls LastModified Time None Recorded Concern Status LastModified by Organization Details LastModified Time None Recorded Payers Encounter Date Sequence Insurance Name Policy Number Policy Snowden Covered Member ID Snowden Member ID Guarantor Name 03/11/2025 1 [facility] (MEDICAID HMO) [id number] Opal Spear [id number] Opal Spear Notes Date Note Type Note Provider Name and Address Organization Details Recorded Time 03/11/2025 text/html Generic HPI TemplateReported by Patient BONITA RAMAN MD [address], [place], [address], [facility] 03/11/2025 14:55:12 OBGyn Episode Ob Episode Information Episode Created Date Number of Fetuses Patient Bloodtype Patient rh Status Prepregnancy Weight lbs Domestic Partner Domestic Partner Phone Father Name Administrative Operations Coordinator Status 10/01/19 25 1 A Positive 137 Akash vann OPEN Fetus Data First Name Last Name Admitted to NICU Weight (g) Sex Living Outcome Pediatric Complications Fetus ID Race Codes Race Delivery Type [id number] Problems Problem Notes Problem Name Start Date End Date Resolution Snomed Code Not e Acute cystitis 11/26/2024 [id number] CAITIE at 20 weeks Wale Calculation Initial [...] Sound Latest Days Gestation 11/27/19 25 19 [id number] 09/30/2024 04/15/19 26 4 Pre-iveth Flowsheet Flowsheet Date 09/30/2024 Demarco Score Blood Edema Fundus Height Fundus Units Glucose Ketones Leukocytes Nitrite Labor Signs Protein Cervic Dilation Cervic Effacement Cervic Station Type Weight in lbs Pre/Post Dialysis Refused Weight 138.991271663173 BP Diastolic BP Location Tested BP Systolic BP Type 80 L arm 127 sitting Fetus Heart Rate Present A 164 Fetus Movement Comments Patient presents to [facility] care. otherwise uncomplicated. No nausea or cramping. NT/NB wnl today, desires NIPT. Will draw today with new OB labs. RTC 4 weeks for routine care. Flowsheet Date 10/28/2024 Demarco Score Blood Edema Fundus Height Fundus Units Glucose Ketones Leukocytes Nitrite Labor Signs Protein Cervic Dilation Cervic Effacement Cervic Station Type Weight in lbs Pre/Post Dialysis Refused Weight 146.071758598367 BP Diastolic BP Location Tested BP Systolic BP Type 73 L arm 115 sitting Fetus Heart Rate Present A 155 Fetus Movement Comments Doing well, pain improved, w as seen at [place] for back pain and was diagnosed with [...] Type Weight in lbs Pre/Post Dialysis Refused 156.103483482131 BP Diastolic BP Location Tested BP Systolic [...] Weight in lbs Pre/Post Dialysis Refused Weight 169.873196373136 BP Diastolic BP Location Tested BP Systolic [...] Weight in lbs Pre/Post Dialysis Refused Weight 167.718260388942 BP Diastolic BP Location Tested BP Systolic [...] Weight in lbs Pre/Post Dialysis Refused Weight 172.206695869983 BP Diastolic BP Location Tested BP Systolic [...] Weight in lbs Pre/Post Dialysis Refused Weight 177.129357913778 BP Diastolic BP Location Tested BP Systolic [...] Type Weight in lbs Pre/Post Dialysis Refused 181.941532951343 BP Diastolic BP Location Tested BP Systolic [...] Weight in lbs Pre/Post Dialysis Refused Weight 183.553115862059 BP Diastolic BP Location Tested BP Systolic [...] Weight in lbs Pre/Post Dialysis Refused Weight 187.291864413471 BP Diastolic BP Location Tested BP Systolic [...]
--- OUTSIDE RECORDS SUMMARY | 2025-03-22 17:54 | XMS_ITS | Clinical Summary ---
Author Organization [facility] Address [address] [place] [address] Care Team Providers Care Inspector Repairer [place] Name Role Phone Unavailable Primary Care Provider Unavailabl e Source Comments [facility],non-owned Affiliates and Associated Physician Practices is amultiple site organization consisting of ambulatory clinics and hospital sitesin [place], [place], [place] and [place]. This disclosure is being madepursuant to the Care Everywhere program and may not contain all information available regarding this patient. 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 Gender Identity Not on file Sexual Orientation Not on file Last Filed Vital Signs Vital Sign Reading Time Taken Comments Blood Pressure 124/70 04/12/2021 4:47 PM GLUE SPRAYER Pulse 96 04/12/2021 4:47 PM GLUE SPRAYER Temperature 36.7 C (98.1 F) 04/12/2021 4:47 PM GLUE SPRAYER Respiratory Rate 20 04/12/2021 4:47 PM GLUE SPRAYER Oxygen Saturation - - Inhaled Oxygen Concentration - - Weight 58 kg (127 lb 13.9 oz) 04/12/2021 4:47 PM GLUE SPRAYER Height - - Body Mass Index - [...] of 3 - 19+ 3-dose series) 01/28/2023 DEPRESSION SCREENING 03/26/2024 COVID-19 VACCINE (1 - 2024-2 6 season) 2024 INFLUENZA VACCINE (#1) 2024 ZOSTER VACCINE (1 [...]
--- OUTSIDE RECORDS SUMMARY | 2025-03-22 17:54 | XMS_ITS | Continuity of Care Document ---
Author Organization [facility], [facility] Address [address] [place] [address] Assessment No assessment recorded. Plan of Treatment [...] normal Not Available Liana Perez[address], [place], [address], 10/06/2024 23:31:19 10/07/19 25 10/06/2024 [UNIT Y] ANEUP LOIDY NIPT 22Q11.2 microdeletio n LOW RISK <1 in 10,000 normal Not Available Jono wright [address], [place], [address], 10/06/2024 23:31:19 10/07/19 25 10/06/2024 [UNIT Y] ANEUP LOIDY NIPT sex chromosome aneuploidy NOT DETECT ED normal Not Available [facility]on e [address], [place], [address], 10/06/2024 23:31:19 10/07/19 25 10/06/2024 [UNIT Y] ANEUP LOIDY NIPT monosomy X LOW RISK <1 in 10,000 normal Not Available [facility] [address], [place], [address], 10/06/2024 23:31:19 10/07/19 25 10/06/2024 [UNIT Y] ANEUP LOIDY NIPT trisomy 13 LOW RISK <1 in 10,000 normal Not Available [facility] [address], [place], [address], 10/06/2024 23:31:19 10/07/19 25 10/06/2024 [UNIT Y] ANEUP LOIDY NIPT trisomy 18 LOW RISK <1 in 10,000 normal Not Available [facility] [address], [place], [address], 10/06/2024 23:31:19 10/07/19 25 10/06/2024 [UNIT Y] ANEUP LOIDY NIPT trisomy 21 LOW RISK <1 in 10,000 normal Not Available [facility] [address], [place], [address], 10/06/2024 23:31:19 10/07/19 25 10/06/2024 [UNIT Y] ANEUP LOIDY NIPT sex FEMALE normal Not Available [facility] [address], [place], [address], 10/06/2024 23:31:19 10/07/19 25 10/06/2024 [UNIT Y] ANEUP LOIDY NIPT gestation SINGLE TON normal Not Available [facility] [address], [place], [address], 10/06/2024 23:31:19 10/07/19 25 10/06/2024 [UNIT Y] ANEUP EMY NIPT for detailed report, see pdf See PDF normal Not Available [facility] [address], [place], [address], 10/06/2024 23:31:19 10/13/19 25 10/12/2024 [UNIT Y] JENIFER Parra sickle cell disease/beta -thalassemia /hemoglobino pathies carrier screen NEGATI VE normal Not Available [facility] [address], [place], [address], 10/12/2024 10:46:31 10/13/19 25 10/12/2024 [UNIT Y] JENIFER SINAI Parra alpha-thalas semia carrier screen NEGATI VE normal Not Available [facility] [address], [place], [address], 10/12/2024 10:46:31 10/13/19 25 10/12/2024 [UNIT Y] JENIFER SINAI Parra cystic fibrosis carrier screen NEGATI VE normal Not Available [facility] [address], [place], [address], 10/12/2024 10:46:31 10/13/19 25 10/12/2024 [UNIT Y] JENIFER Parra spinal muscular atrophy carrier screen NEGATI VE 2 SMN1 copies , SNP not presen t normal Not Available [facility] [address], [place], [address], 10/12/2024 10:46:31 10/13/19 25 10/12/2024 [UNIT Y] JENIFER Parra for detailed report, see pdf See PDF normal Not Available [facility] [address], [place], [address], 10/12/2024 10:46:31 10/01/19 25 09/30/2024 CBC W/DIF F WBC 5.6 10'3/ uL 3.5-10 .5 Not Available [facility] (Lab) [address], [place], [address], 10/01/2024 11:38:10/01/19 25 09/30/2024 CBC W/DIF F RBC 3.95 10'6/ uL (based on docume nted legal sex) 3.80-5 .20 Not Available [facility] (Lab) [address], [place], [address], 10/01/2024 11:38:09 10/01/19 25 09/30/2024 CBC W/DIF F HGB 12.5 g/dL (based on docume nted legal sex) 11.6-1 5.4 Not Available [facility] (Lab) [address], [place], [address], 10/01/2024 11:38:10/01/19 25 09/30/2024 CBC W/DIF F HCT 37.1 % (based on docume nted legal sex) 34.0-4 5.0 Not Available [facility] (Lab) [address], [place], [address], 10/01/2024 11:38:10/01/1909/30/2024 CBC W/DIF F MCV 93.9 fL 80.0-9 9.0 Not Available [facility] (Lab) [address], [place], [address], 10/01/2024 11:38:10/01/1909/30/2024 CBC W/DIF F MCH 31.6 pg 27.0-3 4.0 Not Available [facility] (Lab) [address], [place], [address], 10/01/2024 11:38:10/01/1909/30/2024 CBC W/DIF F MCHC 33.7 g/dL 32.0-3 5.5 Not Available [facility] (Lab) [address], [place], [address], 10/01/2024 11:38:09 10/01/19 25 09/30/2024 CBC W/DIF F RDW 12.8 % 11.0-1 5.0 Not Available [facility] (Lab) [address], [place], [address], 10/01/2024 11:38:09 10/01/19 25 09/30/2024 CBC W/DIF F plt 198 10'3/ uL 150-40 0 Not Available [facility] (Lab) [address], [place], [address], 10/01/2024 11:38:09 10/01/1909/30/2024 CBC W/DIF F MPV 10.8 fL 8.8-12 .1 Not Available [facility] (Lab) [address], [place], [address], 10/01/2024 11:38:09 10/01/19 25 09/30/2024 CBC W/DIF F NRBC's 0.0 % 0.0 Not Available [facility] (Lab) [address], [place], [address], 10/01/2024 11:38:09 10/01/19 25 09/30/2024 CBC W/DIF F absolute NRBCs 0.0 10'3/ uL no refere nce range establ ished Not Available [facility] (Lab) [address], [place], [address], 10/01/2024 11:38:09 10/01/19 25 09/30/2024 CBC W/DIF F neutrophils 73.5 % 34.0-7 3.0 high Not Available [facility] (Lab) [address], [place], [address], 10/01/2024 11:38:09 10/01/19 25 09/30/2024 CBC W/DIF F lymphocytes 18.1 % 15.0-5 0.0 Not Available [facility] (Lab) [address], [place], [address], 10/01/2024 11:38:09 10/01/19 25 09/30/2024 CBC W/DIF F monocytes 6.4 % 1.0-15 .0 Not Available [facility] (Lab) [address], [place], [address], 10/01/2024 11:38:09 10/01/19 25 09/30/2024 CBC W/DIF F eosinophils 1.2 % 0.0-8. 0 Not Available [facility] (Lab) [address], [place], [address], 10/01/2024 11:38:09 10/01/19 25 09/30/2024 CBC W/DIF F basophils 0.4 % 0.0-2. 0 Not Available [facility] (Lab) [address], [place], [address], 10/01/2024 11:38:09 10/01/19 25 09/30/2024 CBC W/DIF [...] separ ately if prese nt. Not Available [facility] (Lab) [address], [place], [address], 10/01/2024 11:38:09 10/01/19 25 09/30/2024 CBC W/DIF F absolute neutrophils 4.1 10'3/ uL 1.5-8. 0 Not Available [facility] (Lab) [address], [place], [address], 10/01/2024 11:38:09 10/01/19 25 09/30/2024 CBC W/DIF F absolute lymphocytes 1.0 10'3/ uL 1.0-4. 0 Not Available [facility] (Lab) [address], [place], [address], 10/01/2024 11:38:10/01/1909/30/2024 CBC W/DIF F absolute monocytes 0.4 10'3/ uL 0.2-1. 0 Not Available [facility] (Lab) [address], [place], [address], 10/01/2024 11:38:10/01/1909/30/2024 CBC W/DIF F absolute eosinophils 0.1 10'3/ uL 0.0-0. 6 Not Available [facility] (Lab) [address], [place], [address], 10/01/2024 11:38:09 10/01/1909/30/2024 CBC W/DIF F absolute basophils 0.0 10'3/ uL 0.0-0. 3 Not Available [facility] (Lab) [address], [place], [address], 10/01/2024 11:38:10/01/1909/30/2024 CBC W/DIF F absolute immature [...] scott book. nm.or g/gen derx Not Available [facility] (Lab) [address], [place], [address], 10/01/2024 11:38:10/01/1909/30/2024 HEPAT ITIS B SURFA CE ANTIG EN hepatitis B surface antigen Non-re active non-re active This assay was perfo rmed using [employer] ratio n reage nts and test kits. Value s obtai tacho with other assay metho ds or kits canno t be used inter cronin eably . Not Available [facility] (Lab) [address], [place], [address], 10/01/2024 11:38:10 10/01/1909/30/2024 HIV 1/2 ANTIG EN/AN TIBOD Y, REFLE X CONFI RMATI ON HIV antigen/anti body Nonrea ctive nonrea ctive HIV-1 antig en and HIV-1 /HIV- 2 antib odies were not detec manisha. No labor atory evide nce of HIV infec tion. Not Available [facility] (Lab) [address], [place], [address], 10/01/2024 11:38:10 10/01/1909/30/2024 HEPAT ITIS C ANTIB ALISHA SCREE N, REFLE X TO CONFI RMATI ON hepatitis C antibody Non-re active non-re active Antib odies to HCV Not Detec manisha, does not exclu de the possi bilit y of expos ure to HCV. Not Available [facility] (Lab) [address], [place], [address], 10/01/2024 11:38:11 10/01/1909/30/2024 RUBEL LA IGG ANTIB ALISHA, QUANT rubella antibodies, IgG Reacti ve reacti ve Not Available [facility] (Lab) [address], [place], [address], 10/01/2024 11:38:11 10/01/19 25 09/30/2024 RUBEL LA IGG ANTIB ALISHA, QUANT rubella antibodies, IgG quant 12.5 IU/mL >=10 Non-r eacti ve (Non- Immun e) <10 IU/mL React adina (Immu ne) > or = 10 IU/mL Not Available [facility] (Lab) [address], [place], [address], 10/01/2024 11:38:11 10/01/19 25 09/30/2024 TYPE/ RH/SC REEN ABO/Rh type A POS Not Available [facility] (Lab) [address], [place], [address], 10/01/2024 11:38:12 10/01/1909/30/2024 TYPE/ RH/SC REEN antibody screen NEG Not Available [facility] (Lab) [address], [place], [address], 10/01/2024 11:38:12 10/01/1909/30/2024 TYPE/ RH/SC REEN exp date 2024 23:59 Not Available [facility] (Lab) [address], [place], [address], 10/01/2024 11:38:12 10/01/19 25 09/30/2024 HEMOG LOBIN [...] >8.0% Actio n sugge sted Not Available [facility] (Lab) [address], [place], [address], 10/01/2024 11:38:13 10/01/19 25 09/30/2024 RPR SCREE N, REFLE X TITER /CONF IRMAT ION RPR qualitative Nonrea ctive nonrea ctive Not Available [facility] (Lab) [address], [place], [address], 10/01/2024 11:38:13 10/01/1909/30/2024 CULTU RE: URINE result report SEE RESULT S BELOW Test: Cultu re: Urine Speci men Sourc e: Urine Voide d Speci men Type: Urine Speci men Date: 025 1011 Resul t Date: 2024 0559 Resul t Statu s: Final resul t Abnor mal: No Resul ting Lab: [facility] [address] [facility] [address] Tel: CULTU RE ----- ----- ----- --- No growt h in 1 day (dete ction level of 10,00 0 colon ies / ml.) Not Available [facility] (Lab) [address], [place], [address], 10/02/2024 07:03:32 10/01/19 25 09/30/2024 drug scree n, urine Amphetamines : negati ve Not Available [facility] [address], [place], [address], 09/30/2024 10:52:38 10/01/19 25 09/30/2024 drug scree n, urine Cannabinoids : positi ve Not Available [facility] [address], [place], [address], 09/30/2024 10:52:38 10/01/19 25 09/30/2024 drug scree n, urine Cocaine: negati ve Not Available [facility] [address], [place], [address], 09/30/2024 10:52:38 10/01/19 25 09/30/2024 drug scree n, urine Opiates: negati ve Not Available [facility] [address], [place], [address], 09/30/2024 10:52:38 10/01/19 25 09/30/2024 drug scree n, urine Phenocyclidi ne: negati ve Not Available [facility] [address], [place], [address], 09/30/2024 10:52:38 10/01/19 25 09/30/2024 drug scree n, urine Barbiturates : negati ve Not Available [facility] [address], [place], [address], 09/30/2024 10:52:38 10/01/19 25 09/30/2024 drug scree n, urine Benzodiazepi carla: negati ve Not Available [facility] [address], [place], [address], 09/30/2024 10:52:38 10/01/19 25 09/30/2024 drug scree n, urine Ethanol: negati ve Not Available [facility] [address], [place], [address], 09/30/2024 10:52:38 10/01/19 25 09/30/2024 drug scree n, urine Hallucinogen s: negati ve Not Available [facility] [address], [place], [address], 09/30/2024 10:52:38 10/01/19 25 09/30/2024 drug scree n, urine Inhalants: negati ve Not Available [facility] [address], [place], [address], 09/30/2024 10:52:38 10/01/19 25 09/30/2024 drug scree n, urine Anabolic Steroids: negati ve Not Available [facility] [address], [place], [address], 09/30/2024 10:52:38 11/27/19 25 11/26/2024 CULTU RE: URINE result report SEE RESULT S BELOW Test: Cultu re: Urine Speci men Sourc e: Urine Voide d Speci men Type: Urine Speci men Date: 025 1312 Resul t Date: 025 2207 Resul t Statu s: Final resul t Abnor mal: No Resul ting Lab: [facility] [address] [facility] [address] Tel: CULTU RE ----- ----- ----- --- No growt h in 1 day (dete ction level of 10,00 0 colon ies / ml.) Not Available [facility] (Lab) [address], [place], [address], 11/28/2024 13:32:03 11/27/19 25 11/26/2024 CT/GC AND TRICH OMONA S VAGIN WINSTON (RRNA ), URINE chlamydia trachomatis, PCR Negati ve negati ve Not Available [facility] (Lab) [address] [place], [address], 11/28/2024 13:32:04 11/27/19 25 11/26/2024 CT/GC AND TRICH OMONA S VAGIN WINSTON (RRNA ), URINE neisseria gonorrhoeae, PCR Negati ve negati ve Not Available [facility] (Lab) [address], [place], [address], 11/28/2024 13:32:04 11/27/19 25 11/26/2024 CT/GC AND TRICH OMONA S VAGIN WINSTON (RRNA ), URINE trichomonas vaginalis ribosomal RNA (rrna) Negati ve negati ve Not Available [facility] (Lab) [address] [place], [address], 11/28/2024 13:32:04 01/03/20 25 01/02/2025 CULTU RE: URINE result report SEE RESULT S BELOW Test: Cultu re: Urine Speci men Sourc e: Urine - Clean Catch Speci men Type: Urine Speci men Date: 01/02 1101 Resul t Date: 01/04 0616 Resul t Statu s: Final resul t Abnor mal: No Resul ting Lab: [facility] [address] [facility] [address] Tel: CULTU RE ----- ----- ----- --- Cultu re resul t (>=3 organ isms prese nt) indic ates possi ble conta minat ion. Repea t cultu re if sympt oms indic ate. Not Available [facility] (Lab) [address], [place], [address], 01/04/2025 07:17:57 01/03/2001/02/2025 WOMEN 'S HEALT H [...] or negat adina statu s. Not Available [facility] (Lab) [address] [place], [address], 01/05/2025 08:57:21 01/03/2001/02/2025 WOMEN 'S HEALT H SWAB, LUIS MANUEL jeanmarie species, tma Positi ve negati ve abnormal Not Available [facility] (Lab) [address] [place], [address], 01/05/2025 08:57:21 01/03/2001/02/2025 WOMEN 'S HEALT H SWAB, LUIS MANUEL jeanmarie glabrata, tma Negati ve negati ve Not Available [facility] (Lab) [address] [place], [address], 01/05/2025 08:57:21 01/03/2001/02/2025 WOMEN 'S HEALT H [...] Ampli ficat ion (TMA) . Not Available [facility] (Lab) [address], [place], [address], 01/05/2025 08:57:21 01/03/2001/02/2025 urina lysis , dipst ick Leukocytes trace Not Available [facility] [address], [place], [address], 01/02/2025 11:23:03 01/03/2001/02/2025 urina lysis , dipst ick Nitrite neg Not Available [facility] [address], [place], [address], 01/02/2025 11:23:03 01/03/2001/02/2025 urina lysis , dipst ick Urobilinogen norm Not Available [facility] petros [address], [place], [address], 01/02/2025 11:23:03 01/03/2001/02/2025 urina lysis , dipst ick Protein trace Not Available [facility] [address], [place], [address], 01/02/2025 11:23:03 01/03/2001/02/2025 urina lysis , dipst ick pH 7 Not Available [facility] [address], [place], [address], 01/02/2025 11:23:03 01/03/20 25 01/02/2025 urina lysis , dipst ick Blood ++ Not Available [facility] [address], [place], [address], 01/02/2025 11:23:03 01/03/2001/02/2025 urina lysis , dipst ick Specific [place] 1.070 Not Available Dalia benavidez [address], [place], [address], 01/02/2025 11:23:03 01/03/2001/02/2025 urina lysis , dipst ick Ketone trace Not Available [facility] [address], [place], [address], 01/02/2025 11:23:03 01/03/2001/02/2025 urina lysis , dipst ick Bilirubin + Not Available Xi [facility] [address], [place], [address], 01/02/2025 11:23:03 01/03/2001/02/2025 urina lysis , dipst ick Glucose neg Not Available [facility] [address], [place], [address], 01/02/2025 11:23:03 01/03/2001/02/2025 urina lysis , dipst ick Appearance clear Not Available Tianna pearce [address], [place], [address], 01/02/2025 11:23:03 01/03/2001/02/2025 urina lysis , dipst ick Color yellow Not Available [facility] [address], [place], [address], 01/02/2025 11:23:03 01/28/20 25 01/27/2025 HEMOG LOBIN (HGB) HGB 12.0 g/dL (based on docume nted legal sex) 11.6-1 5.4 Not Available [facility] (Lab) [address], [place], [address], 01/28/2025 12:35:48 01/28/20 25 01/27/2025 HEMAT OCRIT (HCT) HCT 35.8 % (based on docume nted legal sex) 34.0-4 5.0 Not Available [facility] (Lab) [address], [place], [address], 01/28/2025 12:35:48 01/28/20 25 01/27/2025 GTT - GESTA OBEY L SCREE N, ACOG OB glucose, 1 hour screen 105 mg/dL 70-135 Not Available [facility] (Lab) [address], [place], [address], 01/28/2025 12:35:49 01/28/20 25 01/27/2025 HIV 1/2 ANTIG EN/AN TIBOD Y, REFLE X CONFI RMATI ON HIV antigen/anti body Nonrea ctive nonrea ctive HIV-1 antig en and HIV-1 /HIV- 2 antib odies were not detec manisha. No labor atory evide nce of HIV infec tion. Not Available [facility] (Lab) [address], [place], [address], 01/28/2025 12:35:49 01/28/20 25 01/27/2025 RPR SCREE N, REFLE X TITER /CONF IRMAT ION RPR qualitative Nonrea ctive nonrea ctive Not Available [facility] (Lab) [address], [place], [address], 01/28/2025 12:35:50 10/01/19 25 09/30/2024 US, obste tric, nucha l trans lucen cy No observ ation record ed. [email or web address] [facility] [address], [place], [address], 09/30/2024 13:22:32 10/01/19 25 09/30/2024 US, obste tric, nucha l trans lucen cy No observ ation record ed. [email or web address] Reg[facility] [address], [place], [address], 10/03/2024 17:35:49 11/27/19 25 11/26/2024 US, obste tric, 2nd or 3rd trime ster No observ ation record ed. [email or web address] [facility] [address], [place], [address], 11/26/2024 18:48:44 11/27/19 25 11/26/2024 US, obste tric, 2nd or 3rd trime ster No observ ation record ed. RODRIGO [facility] [address], [place], [address], 11/26/2024 20:56:33 11/27/19 25 11/26/2024 US, obste tric, 2nd or 3rd trime ster No observ ation record ed. RODRIGO [facility] [address], [place], [address], 11/26/2024 20:56:34 02/26/20 25 02/25/2025 US, obste tric, follo w-up No observ ation record ed. [email or web address] [facility] [address], [place], [address], 02/25/2025 13:29:09 02/26/20 25 02/25/2025 US, obste tric, follo w-up No observ ation record ed. RODRIGO [facility] [address], [place], [address], 02/28/2025 16:38:30 03/02/20 25 03/01/2025 imagi ng/di agnos tic resul t No observ ation record ed. [facility] [address], [place], [address], 03/02/2025 16:17:21 Result Notes None recorded. Problems Name Problem SNOMED Code Status Onset Date Resolution Date Notes Provider Name and Address Organization Details Recorded Time 49012562 Active 025 Natalia Villanueva null, [facility] 5 10:12:39 Acute cystitis 89883987 Active 025 CAITIE at 20 weeks BONITA RAMAN MD [address], [place], [address], [facility] 12:45:20 Problem Notes None [...] Updated DateTime 02/11/2025 167.64 cm 28.6 kg/m2 59694.85 g 112/73 mm[Hg] Lilly Michelle [facility] 02/11/2025 11:58:21 Social History Question Answer Notes LastModified by Organizat ion Details LastModified Time Tobacco Smoking Status Never Smoker [email or web address] 09/02/2024 17:29:38 Do You Have An Advance Directive? No [email or web address] Information n ot available 09/02/2024 If You Are , What Was Your Level Of Alcohol Consumption Prior To ? None [email or web address] Information not available 09/02/2024 Are You Blind Or Do You Have Difficulty Seeing? No [email or web address] Information n ot available 09/02/2024 What Is Your Level Of Caffeine Consumption? None [email or web address] Information not available 09/02/2024 In The 14 Days Before Symptom Onset, Have You Had Close Contact With A Laboratory-confirm ed COVID-19 While That Case Was Ill? No [email or web address] Information n ot available 09/02/2024 In The 14 Days Before Symptom Onset, Have You Had Close Contact With A Person Who Is Under Investigation For COVID-19 While That Person Was Ill? No [email or web address] Information not available 09/02/2024 Have You Been To An Area Known To Be High Risk For COVID-19? No [email or web address] Information not available 09/02/2024 Are You Deaf Or Do You Have Serious Difficulty Hearing? No [email or web address] Information not available 09/02/2024 What Type Of Diet Are You Following? REGULAR [email or web address] Information n ot available 09/02/2024 What Is The Highest Grade Or Level Of School You Have Completed Or The Highest Degree You Have Received? [id number] [email or web address] Information not available 09/02/2024 Are There Any Guns Present In Your Home? No [email or web address] Information not available 09/02/2024 Do You Use Your Seat Belt Or Car Seat Routinely? Yes Information not available 09/02/2024 Are You Sexually Active? Yes [email or web address] Information not available 09/02/2024 Do You Have Smoke And Carbon Monoxide Detectors In Your Home? Yes [email or web address] Information not available 09/02/2024 Do You Use Sunscreen Routinely? Yes [email or web address] Information not available 09/02/2024 Has Tobacco Cessation Counseling Been Provided? No Information not available 09/02/2024 Do You Have Difficulty Walking Or Climbing Stairs? No [email or web address] Information not available 09/02/2024 How Many Years Have You Used E-cigarettes Or Vape? 3 [email or web address] Information not available 09/02/2024 Sex: Unknown Functional Status Question Answer Note LastModified by Organizat ion Details LastModified Time Do you use any illicit or recreational drugs? No [email or web address] Information not available 09/02/2024 Do you or have you ever used any other forms of tobacco or nicotine? Yes [email or web address] Information not available 09/02/2024 What is your level of alcohol consumption? None [email or web address] Information not available 09/02/2024 Do you or have you ever used smokeless tobacco? Never used smokeless tobacco [email or web address] Information not available 09/02/2024 Are you currently employed? No [email or web address] Information not available 09/02/2024 Are you able to walk independently without assistance or assistive devices? YESWOREST [email or web address] Information not available 09/02/2024 Are you able to care for yourself independently? Yes Information not available 09/02/2024 Do you have difficulty dressing, bathing, grooming, or toileting? Yes [email or web address] Information not available 09/02/2024 Do you or have you ever used e-cigarettes or vape? Current user of electronic cigarettes [email or web address] Information not available 09/02/2024 What is your exercise level? None [email or web address] Information not available 09/02/2024 Mental Status Question Answer Note LastModified by Organization D etails LastModified Time Do you feel stressed (tense, restless, nervous, or anxious, or unable to sleep at night)? [id number] [email or web address] Information not available 09/02/2024 Family History Relationship Description Onset Age of this Age Resolved Age Notes LastModified by Organization Details LastModified Time Mother Malignant neoplasm of breast Not available 2024 17:29:18 Maternal Grandmother Malignant neoplasm of lung [id number] Not available 2024 17:29:27 Medical History Condition [...] ICD10 Code Diagnosis IMO Codes Diagnosis Note [id number] BONITA RAMAN MD [facility] [address] [address] 01/27/2025 10:28:49 01/27/2025 11:31:59 care status [id number] Z34.83 [id number] - continue PNV [id number] BONITA RAMAN MD [facility] [address] [address] 02/11/2025 11:38:35 02/11/2025 12:12:44 Breech presentation [id number] [id number] - repeat growth/pre sentation US next visit Gestation period, 31 weeks [id number] - continue [facility] Concerns Section Related Observation LastModified by Organization Detai ls LastModified Time None Recorded Concern Status LastModified by Organization Details LastModified Time None Recorded Payers Encounter Date Sequence Insurance Name Policy Number Policy Snowden Covered Member ID Snowden Member ID Guarantor Name 02/11/2025 1 [facility] (MEDICAID HMO) [id number] Opal Spear [id number] Opal Spear Notes Date Note Type Note Provider Name and Address Organization Details Recorded Time 02/11/2025 text/html Generic HPI TemplateReported by Patient BONITA RAMAN MD [address], [place], [address], [facility] 02/11/2025 12:11:01 OBGyn Episode Ob Episode Information Episode Created Date Number of Fetuses Patient Bloodtype Patient rh Status Prepregnancy Weight lbs Domestic Partner Domestic Partner Phone Father Name Economic Manager Status 10/01/19 25 1 A Positive 137 Akash vann OPEN Fetus Data First Name Last Name Admitted to NICU Weight (g) Sex Living Outcome Pediatric Complications Fetus ID Race Codes Race Delivery Type [id number] Problems Problem Notes Problem Name Start Date End Date Resolution Snomed Code Not e Acute cystitis 11/26/2024 [id number] CAITIE at 20 weeks Wale Calculation Initial [...] Sound Latest Days Gestation 11/27/19 25 19 [email or web address] 09/30/2024 04/15/19 26 4 Pre- Flowsheet Flowsheet Date 09/30/2024 Demarco Score Blood Edema Fundus Height Fundus Units Glucose Ketones Leukocytes Nitrite Labor Signs Protein Cervic Dilation Cervic Effacement Cervic Station Type Weight in lbs Pre/Post Dialysis Refused Weight 138.683824703185 BP Diastolic BP Location Tested BP Systolic BP Type 80 L arm 127 sitting Fetus Heart Rate Present A 164 Fetus Movement Comments Patient presents to [facility] care. otherwise uncomplicated. No nausea or cramping. NT/NB wnl today, desires NIPT. Will draw today with new OB labs. RTC 4 weeks for routine care. Flowsheet Date 10/28/2024 Demarco Score Blood Edema Fundus Height Fundus Units Glucose Ketones Leukocytes Nitrite Labor Signs Protein Cervic Dilation Cervic Effacement Cervic Station Type Weight in lbs Pre/Post Dialysis Refused Weight 146.900447379624 BP Diastolic BP Location Tested BP Systolic BP Type 73 L arm 115 sitting Fetus Heart Rate Present A 155 Fetus Movement Comments Doing well, pain improved, w as seen at [facility] for back pain and was diagnosed with [...] Type Weight in lbs Pre/Post Dialysis Refused 156.910189085958 BP Diastolic BP Location Tested BP Systolic [...] Weight in lbs Pre/Post Dialysis Refused Weight 169.643451661421 BP Diastolic BP Location Tested BP Systolic [...] Weight in lbs Pre/Post Dialysis Refused Weight 167.667491154948 BP Diastolic BP Location Tested BP Systolic [...] Weight in lbs Pre/Post Dialysis Refused Weight 172.954457426965 BP Diastolic BP Location Tested BP Systolic BP Type 80 L arm 114 sitting Fetus Heart Rate Present Fetus Movement A Yes Comments Doing well, no issues. Yeast infection resolved. Good movement. No cramping or bleeding. GCT and labs today. Baby shower Sunday! Discussed tdap. RTC 2 weeks. Flowsheet Date 02/11/2025 Demaroc Score Blood Edema Fundus Height Fundus Units Glucose Ketones Leukocytes Nitrite Labor Signs Protein Cervic Dilation Cervic Effacement Cervic Station Type Weight in lbs Pre/Post Dialysis Refused Weight 177.894000933731 BP Diastolic BP Location Tested BP Systolic [...] Type Weight in lbs Pre/Post Dialysis Refused 181.005033528514 BP Diastolic BP Location Tested BP Systolic [...] Weight in lbs Pre/Post Dialysis Refused Weight 183.885243063978 BP Diastolic BP Location Tested BP Systolic [...] Weight in lbs Pre/Post Dialysis Refused Weight 187.683616317228 BP Diastolic BP Location Tested BP Systolic [...]
--- OUTSIDE RECORDS SUMMARY | 2025-03-22 17:55 | XMS_ITS | Continuity of Care Document ---
Author Organization [facility] [place], [facility] Address [address] [place] [address] Assessment No assessment recorded. Plan of Treatment [...] normal Not Available Liana Perez[address], [place], [address], 10/06/2024 23:31:19 10/07/19 25 10/06/2024 [UNIT Y] ANEUP LOIDY NIPT 22Q11.2 microdeletio n LOW RISK <1 in 10,000 normal Not Available [facility] [address], [place], [address], 10/06/2024 23:31:19 10/07/19 25 10/06/2024 [UNIT Y] ANEUP LOIDY NIPT sex chromosome aneuploidy NOT DETECT ED normal Not Available [facility] [address], [place], [address], 10/06/2024 23:31:19 10/07/19 25 10/06/2024 [UNIT Y] ANEUP LOIDY NIPT monosomy X LOW RISK <1 in 10,000 normal Not Available [facility] [address], [place], [address], 10/06/2024 23:31:19 10/07/19 25 10/06/2024 [UNIT Y] ANEUP LOIDY NIPT trisomy 13 LOW RISK <1 in 10,000 normal Not Available [facility] [address], [place], [address], 10/06/2024 23:31:19 10/07/19 25 10/06/2024 [UNIT Y] ANEUP LOIDY NIPT trisomy 18 LOW RISK <1 in 10,000 normal Not Available [facility] [address], [place], [address], 10/06/2024 23:31:19 10/07/19 25 10/06/2024 [UNIT Y] ANEUP LOIDY NIPT trisomy 21 LOW RISK <1 in 10,000 normal Not Available [facility] [address], [place], [address], 10/06/2024 23:31:19 10/07/19 25 10/06/2024 [UNIT Y] ANEUP LOIDY NIPT sex FEMALE normal Not Available [facility] [address], [place], [address], 10/06/2024 23:31:19 10/07/19 25 10/06/2024 [UNIT Y] ANEUP LOIDY NIPT gestation SINGLE TON normal Not Available [facility] [address], [place], [address], 10/06/2024 23:31:19 10/07/19 25 10/06/2024 [UNIT Y] ANEUP EMY NIPT for detailed report, see pdf See PDF normal Not Available [facility] [address], [place], [address], 10/06/2024 23:31:19 10/13/19 25 10/12/2024 [UNIT Y] JENIFER Parra sickle cell disease/beta -thalassemia /hemoglobino pathies carrier screen NEGATI VE normal Not Available [facility] [address], [place], [address], 10/12/2024 10:46:31 10/13/19 25 10/12/2024 [UNIT Y] JENIFER SINAI Parra alpha-thalas semia carrier screen NEGATI VE normal Not Available [facility] [address], [place], [address], 10/12/2024 10:46:31 10/13/19 25 10/12/2024 [UNIT Y] JENIFER SINAI Parra cystic fibrosis carrier screen NEGATI VE normal Not Available [facility] [address], [place], [address], 10/12/2024 10:46:31 10/13/19 25 10/12/2024 [UNIT Y] JENIFER Parra spinal muscular atrophy carrier screen NEGATI VE 2 SMN1 copies , SNP not presen t normal Not Available [facility] [address], [place], [address], 10/12/2024 10:46:31 10/13/19 25 10/12/2024 [UNIT Y] JENIFER Parra for detailed report, see pdf See PDF normal Not Available [facility] [address], [place], [address], 10/12/2024 10:46:31 10/01/19 25 09/30/2024 CBC W/DIF F WBC 5.6 10'3/ uL 3.5-10 .5 Not Available [facility] (Lab) [address], [place], [address], 10/01/2024 11:38:10/01/19 25 09/30/2024 CBC W/DIF F RBC 3.95 10'6/ uL (based on docume nted legal sex) 3.80-5 .20 Not Available [facility] (Lab) [address], [place], [address], 10/01/2024 11:38:09 10/01/19 25 09/30/2024 CBC W/DIF F HGB 12.5 g/dL (based on docume nted legal sex) 11.6-1 5.4 Not Available [facility] (Lab) [address], [place], [address], 10/01/2024 11:38:10/01/19 25 09/30/2024 CBC W/DIF F HCT 37.1 % (based on docume nted legal sex) 34.0-4 5.0 Not Available [facility] (Lab) [address], [place], [address], 10/01/2024 11:38:10/01/1909/30/2024 CBC W/DIF F MCV 93.9 fL 80.0-9 9.0 Not Available [facility] (Lab) [address], [place], [address], 10/01/2024 11:38:10/01/1909/30/2024 CBC W/DIF F MCH 31.6 pg 27.0-3 4.0 Not Available [facility] (Lab) [address], [place], [address], 10/01/2024 11:38:10/01/1909/30/2024 CBC W/DIF F MCHC 33.7 g/dL 32.0-3 5.5 Not Available [facility] (Lab) [address], [place], [address], 10/01/2024 11:38:09 10/01/19 25 09/30/2024 CBC W/DIF F RDW 12.8 % 11.0-1 5.0 Not Available [facility] (Lab) [address], [place], [address], 10/01/2024 11:38:09 10/01/19 25 09/30/2024 CBC W/DIF F plt 198 10'3/ uL 150-40 0 Not Available [facility] (Lab) [address] [facility] [address], [place], [address], 10/01/2024 11:38:09 10/01/1909/30/2024 CBC W/DIF F MPV 10.8 fL 8.8-12 .1 Not Available [facility] (Lab) [address], [place], [address], 10/01/2024 11:38:09 10/01/19 25 09/30/2024 CBC W/DIF F NRBC's 0.0 % 0.0 Not Available [facility] (Lab) [address] [facility], [place], [address], 10/01/2024 11:38:09 10/01/19 25 09/30/2024 CBC W/DIF F absolute NRBCs 0.0 10'3/ uL no refere nce range establ ished Not Available [facility] (Lab) [address], [place], [address], 10/01/2024 11:38:09 10/01/19 25 09/30/2024 CBC W/DIF F neutrophils 73.5 % 34.0-7 3.0 high Not Available [facility] (Lab) [address], [place], [address], 10/01/2024 11:38:09 10/01/19 25 09/30/2024 CBC W/DIF F lymphocytes 18.1 % 15.0-5 0.0 Not Available [facility] (Lab) [address], [place], [address], 10/01/2024 11:38:09 10/01/19 25 09/30/2024 CBC W/DIF F monocytes 6.4 % 1.0-15 .0 Not Available [facility] (Lab) [address], [place], [address], 10/01/2024 11:38:09 10/01/19 25 09/30/2024 CBC W/DIF F eosinophils 1.2 % 0.0-8. 0 Not Available [facility] (Lab) [address], [place], [address], 10/01/2024 11:38:09 10/01/19 25 09/30/2024 CBC W/DIF F basophils 0.4 % 0.0-2. 0 Not Available [facility] (Lab) [address], [place], [address], 10/01/2024 11:38:09 10/01/19 25 09/30/2024 CBC W/DIF [...] separ ately if prese nt. Not Available [facility] (Lab) [address], [place], [address], 10/01/2024 11:38:09 10/01/19 25 09/30/2024 CBC W/DIF F absolute neutrophils 4.1 10'3/ uL 1.5-8. 0 Not Available [facility] (Lab) [address], [place], [address], 10/01/2024 11:38:09 10/01/19 25 09/30/2024 CBC W/DIF F absolute lymphocytes 1.0 10'3/ uL 1.0-4. 0 Not Available [facility] (Lab) [address], [place], [address], 10/01/2024 11:38:10/01/1909/30/2024 CBC W/DIF F absolute monocytes 0.4 10'3/ uL 0.2-1. 0 Not Available [facility] (Lab) [address], [place], [address], 10/01/2024 11:38:10/01/1909/30/2024 CBC W/DIF F absolute eosinophils 0.1 10'3/ uL 0.0-0. 6 Not Available [facility] (Lab) [address], [place], [address], 10/01/2024 11:38:09 10/01/1909/30/2024 CBC W/DIF F absolute basophils 0.0 10'3/ uL 0.0-0. 3 Not Available [facility] (Lab) [address], [place], [address], 10/01/2024 11:38:10/01/1909/30/2024 CBC W/DIF F absolute immature [...] scott book. nm.or g/gen derx Not Available [facility] (Lab) [address], [place], [address], 10/01/2024 11:38:10/01/1909/30/2024 HEPAT ITIS B SURFA CE ANTIG EN hepatitis B surface antigen Non-re active non-re active This assay was perfo rmed using [employer] ratio n reage nts and test kits. Value s obtai tacho with other assay metho ds or kits canno t be used inter cronin eably . Not Available [facility] (Lab) [address], [place], [address], 10/01/2024 11:38:10 10/01/1909/30/2024 HIV 1/2 ANTIG EN/AN TIBOD Y, REFLE X CONFI RMATI ON HIV antigen/anti body Nonrea ctive nonrea ctive HIV-1 antig en and HIV-1 /HIV- 2 antib odies were not detec manisha. No labor atory evide nce of HIV infec tion. Not Available [facility] (Lab) [address], [place], [address], 10/01/2024 11:38:10 10/01/1909/30/2024 HEPAT ITIS C ANTIB ALISHA SCREE N, REFLE X TO CONFI RMATI ON hepatitis C antibody Non-re active non-re active Antib odies to HCV Not Detec manisha, does not exclu de the possi bilit y of expos ure to HCV. Not Available [facility] (Lab) [address], [place], [address], 10/01/2024 11:38:11 10/01/1909/30/2024 RUBEL LA IGG ANTIB ALISHA, QUANT rubella antibodies, IgG Reacti ve reacti ve Not Available [facility] (Lab) [address], [place], [address], 10/01/2024 11:38:11 10/01/19 25 09/30/2024 RUBEL LA IGG ANTIB ALISHA, QUANT rubella antibodies, IgG quant 12.5 IU/mL >=10 Non-r eacti ve (Non- Immun e) <10 IU/mL React adina (Immu ne) > or = 10 IU/mL Not Available [facility] (Lab) [address], [place], [address], 10/01/2024 11:38:11 10/01/19 25 09/30/2024 TYPE/ RH/SC REEN ABO/Rh type A POS Not Available [facility] (Lab) [address], [place], [address], 10/01/2024 11:38:12 10/01/1909/30/2024 TYPE/ RH/SC REEN antibody screen NEG Not Available [facility] (Lab) [address], [place], [address], 10/01/2024 11:38:12 10/01/1909/30/2024 TYPE/ RH/SC REEN exp date 2024 23:59 Not Available [facility] (Lab) [address], [place], [address], 10/01/2024 11:38:12 10/01/19 25 09/30/2024 HEMOG LOBIN [...] >8.0% Actio n sugge sted Not Available [facility] (Lab) [address], [place], [address], 10/01/2024 11:38:13 10/01/19 25 09/30/2024 RPR SCREE N, REFLE X TITER /CONF IRMAT ION RPR qualitative Nonrea ctive nonrea ctive Not Available [facility] (Lab) [address], [place], [address], 10/01/2024 11:38:13 10/01/1909/30/2024 CULTU RE: URINE result report SEE RESULT S BELOW Test: Cultu re: Urine Speci men Sourc e: Urine Voide d Speci men Type: Urine Speci men Date: 025 1011 Resul t Date: 2024 0559 Resul t Statu s: Final resul t Abnor mal: No Resul ting Lab: [facility] [address] [facility] [address] Tel: CULTU RE ----- ----- ----- --- No growt h in 1 day (dete ction level of 10,00 0 colon ies / ml.) Not Available [facility] (Lab) [address] [facility], [place], [address], 10/02/2024 07:03:32 10/01/19 25 09/30/2024 drug scree n, urine Amphetamines : negati ve Not Available [facility] [address], [place], [address], 09/30/2024 10:52:38 10/01/19 25 09/30/2024 drug scree n, urine Cannabinoids : positi ve Not Available [facility] [address], [place], [address], 09/30/2024 10:52:38 10/01/19 25 09/30/2024 drug scree n, urine Cocaine: negati ve Not Available [facility] [address], [place], [address], 09/30/2024 10:52:38 10/01/19 25 09/30/2024 drug scree n, urine Opiates: negati ve Not Available [facility] [address], [place], [address], 09/30/2024 10:52:38 10/01/19 25 09/30/2024 drug scree n, urine Phenocyclidi ne: negati ve Not Available [facility] [address], [place], [address], 09/30/2024 10:52:38 10/01/19 25 09/30/2024 drug scree n, urine Barbiturates : negati ve Not Available [facility] [address], [place], [address], 09/30/2024 10:52:38 10/01/19 25 09/30/2024 drug scree n, urine Benzodiazepi carla: negati ve Not Available [facility] [address], [place], [address], 09/30/2024 10:52:38 10/01/19 25 09/30/2024 drug scree n, urine Ethanol: negati ve Not Available [facility] [address], [place], [address], 09/30/2024 10:52:38 10/01/19 25 09/30/2024 drug scree n, urine Hallucinogen s: negati ve Not Available [facility] [address], [place], [address], 09/30/2024 10:52:38 10/01/19 25 09/30/2024 drug scree n, urine Inhalants: negati ve Not Available [facility] [address], [place], [address], 09/30/2024 10:52:38 10/01/19 25 09/30/2024 drug scree n, urine Anabolic Steroids: negati ve Not Available [facility] [address], [place], [address], 09/30/2024 10:52:38 11/27/19 25 11/26/2024 CULTU RE: URINE result report SEE RESULT S BELOW Test: Cultu re: Urine Speci men Sourc e: Urine Voide d Speci men Type: Urine Speci men Date: 025 1312 Resul t Date: 025 2207 Resul t Statu s: Final resul t Abnor mal: No Resul ting Lab: [facility] [address] [facility] [address] Tel: CULTU RE ----- ----- ----- --- No growt h in 1 day (dete ction level of 10,00 0 colon ies / ml.) Not Available [facility] (Lab) [address] [facility], [place], [address], 11/28/2024 13:32:03 11/27/19 25 11/26/2024 CT/GC AND TRICH OMONA S VAGIN WINSTON (RRNA ), URINE chlamydia trachomatis, PCR Negati ve negati ve Not Available [facility] (Lab) [address] [place], [address], 11/28/2024 13:32:04 11/27/19 25 11/26/2024 CT/GC AND TRICH OMONA S VAGIN WINSTON (RRNA ), URINE neisseria gonorrhoeae, PCR Negati ve negati ve Not Available [facility] (Lab) [address], [place], [address], 11/28/2024 13:32:04 11/27/19 25 11/26/2024 CT/GC AND TRICH OMONA S VAGIN WINSTON (RRNA ), URINE trichomonas vaginalis ribosomal RNA (rrna) Negati ve negati ve Not Available [facility] (Lab) [address] [place], [address], 11/28/2024 13:32:04 01/03/20 25 01/02/2025 CULTU RE: URINE result report SEE RESULT S BELOW Test: Cultu re: Urine Speci men Sourc e: Urine - Clean Catch Speci men Type: Urine Speci men Date: 01/02 1101 Resul t Date: 01/04 0616 Resul t Statu s: Final resul t Abnor mal: No Resul ting Lab: [facility] [address] [facility] [address] Tel: CULTU RE ----- ----- ----- --- Cultu re resul t (>=3 organ isms prese nt) indic ates possi ble conta minat ion. Repea t cultu re if sympt oms indic ate. Not Available [facility] (Lab) [address], [place], [address], 01/04/2025 07:17:57 01/03/2001/02/2025 WOMEN 'S HEALT H [...] or negat adina statu s. Not Available [facility] (Lab) [address] [place], [address], 01/05/2025 08:57:21 01/03/2001/02/2025 WOMEN 'S HEALT H SWAB, LUIS MANUEL jeanmarie species, tma Positi ve negati ve abnormal Not Available [facility] (Lab) [address] [place], [address], 01/05/2025 08:57:21 01/03/2001/02/2025 WOMEN 'S HEALT H SWAB, LUIS MANUEL jeanmarie glabrata, tma Negati ve negati ve Not Available [facility] (Lab) [address] [place], [address], 01/05/2025 08:57:21 01/03/2001/02/2025 WOMEN 'S HEALT H [...] Ampli ficat ion (TMA) . Not Available [facility] (Lab) [address], [place], [address], 01/05/2025 08:57:21 01/03/2001/02/2025 urina lysis , dipst ick Leukocytes trace Not Available [facility] [address], [place], [address], 01/02/2025 11:23:03 01/03/2001/02/2025 urina lysis , dipst ick Nitrite neg Not Available [facility] [address], [place], [address], 01/02/2025 11:23:03 01/03/2001/02/2025 urina lysis , dipst ick Urobilinogen norm Not Available [facility] [address], [place], [address], 01/02/2025 11:23:03 01/03/2001/02/2025 urina lysis , dipst ick Protein trace Not Available [facility] [address], [place], [address], 01/02/2025 11:23:03 01/03/2001/02/2025 urina lysis , dipst ick pH 7 Not Available [facility] [address], [place], [address], 01/02/2025 11:23:03 01/03/20 25 01/02/2025 urina lysis , dipst ick Blood ++ Not Available [facility] [address], [place], [address], 01/02/2025 11:23:03 01/03/2001/02/2025 urina lysis , dipst ick Specific [place] 1.070 Not Available [facility]ide[facility] [address], [place], [address], 01/02/2025 11:23:03 01/03/2001/02/2025 urina lysis , dipst ick Ketone trace Not Available [facility] [address], [place], [address], 01/02/2025 11:23:03 01/03/2001/02/2025 urina lysis , dipst ick Bilirubin + Not Available [facility] [address], [place], [address], 01/02/2025 11:23:03 01/03/2001/02/2025 urina lysis , dipst ick Glucose neg Not Available [facility] [address], [place], [address], 01/02/2025 11:23:03 01/03/2001/02/2025 urina lysis , dipst ick Appearance clear Not Available [facility] [address], [place], [address], 01/02/2025 11:23:03 01/03/2001/02/2025 urina lysis , dipst ick Color yellow Not Available [facility] [address], [place], [address], 01/02/2025 11:23:03 01/28/20 25 01/27/2025 HEMOG LOBIN (HGB) HGB 12.0 g/dL (based on docume nted legal sex) 11.6-1 5.4 Not Available [facility] (Lab) [address] [facility], [place], [address], 01/28/2025 12:35:48 01/28/20 25 01/27/2025 HEMAT OCRIT (HCT) HCT 35.8 % (based on docume nted legal sex) 34.0-4 5.0 Not Available [facility] (Lab) [address] [facility], [place], [address], 01/28/2025 12:35:48 01/28/20 25 01/27/2025 GTT - GESTA OBEY L SCREE N, ACOG OB glucose, 1 hour screen 105 mg/dL 70-135 Not Available [facility] (Lab) [address], [place], [address], 01/28/2025 12:35:49 01/28/20 25 01/27/2025 HIV 1/2 ANTIG EN/AN TIBOD Y, REFLE X CONFI RMATI ON HIV antigen/anti body Nonrea ctive nonrea ctive HIV-1 antig en and HIV-1 /HIV- 2 antib odies were not detec manisha. No labor atory evide nce of HIV infec tion. Not Available [facility] (Lab) [address], [place], [address], 01/28/2025 12:35:49 01/28/20 25 01/27/2025 RPR SCREE N, REFLE X TITER /CONF IRMAT ION RPR qualitative Nonrea ctive nonrea ctive Not Available [facility] (Lab) [address], [place], [address], 01/28/2025 12:35:50 10/01/19 25 09/30/2024 US, obste tric, nucha l trans lucen cy No observ ation record ed. [email or web address] [facility] [address], [place], [address], 09/30/2024 13:22:32 10/01/19 25 09/30/2024 US, obste tric, nucha l trans lucen cy No observ ation record ed. Regina [address], [place], [address], 10/03/2024 17:35:49 11/27/19 25 11/26/2024 US, obste tric, 2nd or 3rd trime ster No observ ation record ed. [email or web address] [facility] [address], [place], [address], 11/26/2024 18:48:44 11/27/19 25 11/26/2024 US, obste tric, 2nd or 3rd trime ster No observ ation record ed. RODRIGO [facility] [address], [place], [address], 11/26/2024 20:56:33 11/27/19 25 11/26/2024 US, obste tric, 2nd or 3rd trime ster No observ ation record ed. RODRIGO [facility] [address], [place], [address], 11/26/2024 20:56:34 02/26/20 25 02/25/2025 US, obste tric, follo w-up No observ ation record ed. [email or web address] [facility] [address], [place], [address], 02/25/2025 13:29:09 02/26/20 25 02/25/2025 US, obste tric, follo w-up No observ ation record ed. RODRIGO [facility] [address], [place], [address], 02/28/2025 16:38:30 03/02/20 25 03/01/2025 imagi ng/di agnos tic resul t No observ ation record ed. [facility] [address], [place], [address], 03/02/2025 16:17:21 Result Notes None recorded. Problems Name Problem SNOMED Code Status Onset Date Resolution Date Notes Provider Name and Address Organization Details Recorded Time 38865325 Active 025 Natalia Villanueva null, [facility] 10:12:39 Acute cystitis 83205049 Active 025 CAITIE at 20 weeks BONITA RAMAN MD [address], [place], [address], [facility] 12:45:20 Problem Notes None recorded. [...] Updated DateTime 03/20/2025 167.64 cm 30.2 kg/m2 74835.77 g 129/79 mm[Hg] Lilly Michelle [facility] 03/20/2025 11:29:20 Social History Question Answer Notes LastModified by Organizat ion Details LastModified Time Tobacco Smoking Status Never Smoker MANINDER Pebbles john, [facility] 09/02/2024 17:29:38 Do You Have An Advance Directive? No [email or web address] Information n ot available 09/02/2024 If You Are , What Was Your Level Of Alcohol Consumption Prior To ? None [email or web address] Information not available 09/02/2024 Are You Blind Or Do You Have Difficulty Seeing? No [email or web address] Information n ot available 09/02/2024 What Is Your Level Of Caffeine Consumption? None [email or web address] Information not available 09/02/2024 In The 14 Days Before Symptom Onset, Have You Had Close Contact With A Laboratory-confirm ed COVID-19 While That Case Was Ill? No [email or web address] Information n ot available 09/02/2024 In The 14 Days Before Symptom Onset, Have You Had Close Contact With A Person Who Is Under Investigation For COVID-19 While That Person Was Ill? No [email or web address] Information not available 09/02/2024 Have You Been To An Area Known To Be High Risk For COVID-19? No [email or web address] Information not available 09/02/2024 Are You Deaf Or Do You Have Serious Difficulty Hearing? No [email or web address] Information not available 09/02/2024 What Type Of Diet Are You Following? REGULAR [email or web address] Information n ot available 09/02/2024 What Is The Highest Grade Or Level Of School You Have Completed Or The Highest Degree You Have Received? [id number] [email or web address] Information not available 09/02/2024 Are There Any Guns Present In Your Home? No [email or web address] Information not available 09/02/2024 Do You Use Your Seat Belt Or Car Seat Routinely? Yes [email or web address] Information not available 09/02/2024 Are You Sexually Active? Yes [email or web address] Information not available 09/02/2024 Do You Have Smoke And Carbon Monoxide Detectors In Your Home? Yes [email or web address] Information not available 09/02/2024 Do You Use Sunscreen Routinely? Yes [email or web address] Information not available 09/02/2024 Has Tobacco Cessation Counseling Been Provided? No Information not available 09/02/2024 Do You Have Difficulty Walking Or Climbing Stairs? No [email or web address] Information not available 09/02/2024 How Many Years Have You Used E-cigarettes Or Vape? 3 [email or web address] Information not available 09/02/2024 Sex: Unknown Functional Status Question Answer Note LastModified by Organizat ion Details LastModified Time Do you use any illicit or recreational drugs? No [email or web address] Information not available 09/02/2024 Do you or have you ever used any other forms of tobacco or nicotine? Yes [email or web address] Information not available 09/02/2024 What is your level of alcohol consumption? None [email or web address] Information not available 09/02/2024 Do you or have you ever used smokeless tobacco? Never used smokeless tobacco [email or web address] Information not available 09/02/2024 Are you currently employed? No Information not available 09/02/2024 Are you able to walk independently without assistance or assistive devices? YESWOREST [email or web address] Information not available 09/02/2024 Are you able to care for yourself independently? Yes [email or web address] Information not available 09/02/2024 Do you have difficulty dressing, bathing, grooming, or toileting? Yes [email or web address] Information not available 09/02/2024 Do you or have you ever used e-cigarettes or vape? Current user of electronic cigarettes [email or web address] Information not available 09/02/2024 What is your exercise level? None Information not available 09/02/2024 Mental Status Question Answer Note LastModified by Organization D etails LastModified Time Do you feel stressed (tense, restless, nervous, or anxious, or unable to sleep at night)? [id number] Information not available 09/02/2024 Family History Relationship Description Onset Age of this Age Resolved Age Notes LastModified by Organization Details LastModified Time Mother Malignant neoplasm of breast [email or web address] Not available 2024 17:29:18 Maternal Grandmother Malignant neoplasm of lung [email or web address] Not available 2024 17:29:27 Medical History Condition [...] ICD10 Code Diagnosis IMO Codes Diagnosis Note [id number] MD Navya [place] [address] [address] 02/25/2025 10:07:29 02/25/2025 10:48:49 Observational assessment [id number] Z03.74 Z3A.33 [id number] MD Carl [place] [address] [place] [address] 02/25/2025 10:09:01 02/25/2025 10:59:28 care status [id number] Z34.83 [id number] - continue PNV [id number] MD Carl [place] [address] [place] [address] 03/11/2025 14:20:32 03/11/2025 14:58:25 Acute cystitis [id number] N30.00 [id number] - completed antibiotic s today- symptoms resolved Gestation period, 35 weeks [id number] Z3A.35 [id number] - continue PNV [id number] BONITA RAMAN MD [place] [address] [address] 03/20/2025 11:23:04 03/20/2025 17:05:47 care status [id number] Z34.83 [id number] - continue PNV Health Concerns Section Related Observation LastModified by Organization Detai ls LastModified Time None Recorded Concern Status LastModified by Organization Details LastModified Time None Recorded Payers Encounter Date Sequence Insurance Name Policy Number Policy Snowden Covered Member ID Snowden Member ID Guarantor Name 03/20/2025 1 [facility] (MEDICAID HMO) [id number] Opal Spear [id number] Opal Spear Notes Date Note Type Note Provider Name and Address Organization Details Recorded Time 03/20/2025 text/html Generic HPI TemplateReported by Patient BONITA RAMAN MD [address], [place], [address], [facility] 03/20/2025 11:55:30 OBGyn Episode Ob Episode Information Episode Created Date Number of Fetuses Patient Bloodtype Patient rh Status Prepregnancy Weight lbs Domestic Partner Domestic Partner Phone Father Name Offset Press Operator Helper Status 10/01/19 1 A Positive 137 Akahs Julioe l OPEN Fetus Data First Name Last Name Admitted to NICU Weight (g) Sex Living Outcome Pediatric Complications Fetus ID Race Codes Race Delivery Type [id number] Problems Problem Notes Problem Name Start Date End Date Resolution Snomed Code Not e Acute cystitis 11/26/2024 [id number] CAITIE at 20 weeks Wale Calculation Initial [...] Sound Latest Days Gestation 11/27/19 25 19 [email or web address] 09/30/2024 04/15/19 26 4 Pre-iveth Flowsheet Flowsheet Date 09/30/2024 Demarco Score Blood Edema Fundus Height Fundus Units Glucose Ketones Leukocytes Nitrite Labor Signs Protein Cervic Dilation Cervic Effacement Cervic Station Type Weight in lbs Pre/Post Dialysis Refused Weight 138.380416127788 BP Diastolic BP Location Tested BP Systolic BP Type 80 L arm 127 sitting Fetus Heart Rate Present A 164 Fetus Movement Comments Patient presents to [facility] care. otherwise uncomplicated. No nausea or cramping. NT/NB wnl today, desires NIPT. Will draw today with new OB labs. RTC 4 weeks for routine care. Flowsheet Date 10/28/2024 Demarco Score Blood Edema Fundus Height Fundus Units Glucose Ketones Leukocytes Nitrite Labor Signs Protein Cervic Dilation Cervic Effacement Cervic Station Type Weight in lbs Pre/Post Dialysis Refused Weight 146.218599421146 BP Diastolic BP Location Tested BP Systolic BP Type 73 L arm 115 sitting Fetus Heart Rate Present A 155 Fetus Movement Comments Doing well, pain improved, w as seen at [place] for back pain and was diagnosed with [...] Type Weight in lbs Pre/Post Dialysis Refused 156.836145784312 BP Diastolic BP Location Tested BP Systolic [...] Weight in lbs Pre/Post Dialysis Refused Weight 169.903206931286 BP Diastolic BP Location Tested BP Systolic [...] Weight in lbs Pre/Post Dialysis Refused Weight 167.661145018244 BP Diastolic BP Location Tested BP Systolic [...] Weight in lbs Pre/Post Dialysis Refused Weight 172.511849916092 BP Diastolic BP Location Tested BP Systolic [...] Weight in lbs Pre/Post Dialysis Refused Weight 177.072906415935 BP Diastolic BP Location Tested BP Systolic [...] Type Weight in lbs Pre/Post Dialysis Refused 181.214571369862 BP Diastolic BP Location Tested BP Systolic [...] Weight in lbs Pre/Post Dialysis Refused Weight 183.582408268209 BP Diastolic BP Location Tested BP Systolic [...] Weight in lbs Pre/Post Dialysis Refused Weight 187.794074347816 BP Diastolic BP Location Tested BP Systolic [...]
[2025-03-22 18:08] VITALS: BP 125/79; PULSE 103
[2025-03-22 18:12] LABS: OBXCEM ROM Plus Negative (Negative)
== END 2025-03-22 18:10 | disposition home or self-care (01) ==
LOC: ANHOBOP 17:52
PROVIDERS: Obstetrics & Gynecology; Visit Provider Obstetrics & Gynecology
DX: O42.90 Premature rupture of membranes, unspecified as to length of time between rupture and onset of labor, unspecified weeks of gestation (principal)
CPT/HCPCS: 59025; 84112